=== PATIENT | male | born 1965 | race Caucasian/White ===

== ENCOUNTER → 2017-09-12 16:48 | Outpatient (CLI) | payer MEDICAID, SELFPAY ==
--- NOTE | 2017-09-12 16:58 | RAD_ITS ---
STUDY: X-RAY - LEFT KNEE REASON FOR EXAM: Male, 52 years old. Pain TECHNIQUE: 2 view(s) of the knee. COMPARISON: None. FINDINGS: There is no evidence of fracture or dislocation. There are no significant degenerative changes. There are no radiodense foreign bodies. RAD/Knee 1 or 2 Views IMPRESSION: No fracture or dislocation. Electronically Signed: Robert Mena, at 18:13 EDT Tel , Service support ,
== END ==
PROVIDERS: Visit Provider Nurse Practitioner Family
DX: M25.562 Pain in left knee (principal)
CPT/HCPCS: 73560

== ENCOUNTER 2018-01-11 21:59 | Emergency (ER) | payer SELFPAY ==
[2018-01-11 22:00] VITALS: BP 92/59; PULSE 69; RESP 23; TEMP 36.6; O2SAT 95; BMI 29.7
--- NOTE | 2018-01-11 22:02 | ED.RN ---
CALLED FOR EKG PER RN REQUEST, PULLED OLD EKG'S FOR
[2018-01-11 22:08] VITALS: BP 92/59; PULSE 72; RESP 14; O2SAT 96
--- NOTE | 2018-01-11 22:41 | EKG12_ITS ---
Test Reason : Blood Pressure : / mmHG Vent. Rate : 071 BPM Atrial Rate : 071 BPM P-R Int : 178 ms QRS Dur : 104 ms QT Int : 412 ms P-R-T Axes : 029 073 034 degrees QTc Int : 447 ms Normal sinus rhythm Normal ECG Confirmed by MARISELA OCHOA, AARON ([id number]), editor managing director ALBERT SANTO ([id number] on 01/14/2018 1:30:42 PM Referred By: BON Confirmed By:AARON ANTONIO MD
--- NOTE | 2018-01-11 22:41 | ED.VISSUMM ---
- ER Visit Summary Date of Service: 01/11/18 Chief Complaint: [] Seizure activity History of Present Illness: The patient is a 52 M with a seizure today. Intermittent lasting a minute. Witnessed by his daughter. She stated he was in and out of consciousness with full body shakes and his tongue came out of his mouth. Patient has never had one before. He stated he felt a head bonilla prior. He felt some stomach cramping prior and these are all resolved. Currently he feels normal. He donated plasma today. He was post ictal. He does not remember having this. The patient stated that he takes marijuana occasionally and had 1-2 puffs of the joint today. He takes natural painkiller called kratom. And he is on gabapentin and is weaning himself off Celexa over the last month and a half. He is only on 10 mg daily currently Physical Examination: [] Vital signs reviewed General: Well-nourished well-developed Head: Normocephalic atraumatic Eyes: Pupils equal round and reactive to light extraocular movements intact ENT: TMs clear no hemotympanum no trauma Neck: Nontender full range of motion Cardiovascular: Regular rate rhythm no murmurs normal S1-S2 Respiratory: No distress clear to auscultation bilaterally chest nontender Abdomen: Soft nontender nondistended normal bowel sounds no masses Back: Nontender no CVA tenderness Extremities: Nontender active range of motion ?4 extremities no trauma Skin: Normal color no trauma Neuro alert oriented cranial nerves II through XII intact normal strength sensation reflexes Test Results: [] Emergency Department Course and Treatment: [] Resting comfortably. No complaints currently. He has never had a seizure before. He refused CT head. He understands he could have a brain tumor. This is low likelihood possible. He would like to avoid the radiation exposure and cost at this time. EKG was obtained shows sinus rhythm at a rate of 71 without ischemia or arrhythmia. Lab work obtained. Patient given a dose of Ativan. Reevaluation continues to rest comfortably. CBC normal. Chemistry shows a chloride of 110 calcium 7.8. I do not feel these are significant abnormalities to cause a seizure. Will follow-up as an outpatient with neurology as well as his family doctor and will avoid driving until follow-up. I do not think he needs a first-time seizure medication. Try to avoid marijuana Treatment Plan: [] Disposition: [] Impression: [] Generalized seizure This note was generated with [employer] dictation software. It may contain incorrect words, spelling, and punctuation that were not noted in review of the chart prior to signing ED Disposition - Plan for ED Patient: Chief Complaint: Seizure Referrals: Fany Holguin,Arleen Diallo [Primary Care Provider] -
[2018-01-11] MEDS: LORazepam 2 MG/ML Syringe 1 MG IV (22:49)
[2018-01-11 22:53] LABS: Hematocrit 45.2 % (40-54); Hemoglobin 15.1 g/dl (13.0-16.5); Mean Corp Hgb Conc 33.4 g/gl (32-36); Mean Corpuscular Hgb 32.3 pg (27.0-32.0); Mean Corpuscular Volume 96.6 fL (80-94); Mean Platelet Vol. 9.3 fl (6.2-12.0); Platelet Count 230 K/mm3 (150-450); RBC Distribution Width CV 13.1 % (11.6-14.6); RBC Distribution Width SD 45.7 fl (35.1-43.9); Red Blood Count 4.68 M/mm3 (4.6-6.2); White Blood Count 8.9 K/mm3 (4.4-11.0)
[2018-01-11 22:55] LABS: Scan Indicated on CBC? Y/N NO
[2018-01-11 22:58] LABS: Anion Gap 6 (5-15); BUN 11 mg/dL (7-18); BUN/Creat Ratio 13.4 RATIO (10-20); Calcium,Total 7.8 mg/dL (8.5-10.1); Chloride 110 mmol/L (98-107); Creatinine, Serum 0.82 mg/dL (0.70-1.30); EST Glomerular Filtration Rate 105 mL/min (>60); Est Glom Filt Rate - Afr Amer 126 mL/min (>60); Estimated Creatinine Clearance 115.66 ml/min; Glucose 113 mg/dL (74-106); Sodium Level 143 mmol/L (136-145)
--- NOTE | 2018-01-11 23:10 | ED.DEP ---
ED Disposition - Plan for ED Patient: Disposition: Home or Assisted Living Chief Complaint: Seizure Instructions: ED Seizure New Onset Unk Cause Referrals: [facility] Ezio,Arleen Diallo [Primary Care Provider] - Karel Hebert MD [STAFF PHYSICIAN] -
[2018-01-11 23:18] VITALS: BP 95/70; PULSE 67; RESP 18; O2SAT 94
== END 2018-01-12 00:07 | disposition home or self-care (01) ==
PROVIDERS: Emergency Provider Emergency Medicine
DX: G40.409 Other generalized epilepsy and epileptic syndromes, not intractable, without status epilepticus (principal); G47.33 Obstructive sleep apnea (adult) (pediatric); F41.9 Anxiety disorder, unspecified; J45.909 Unspecified asthma, uncomplicated; Z79.899 Other long term (current) drug therapy; Z72.0 Tobacco use
CPT/HCPCS: 80048; 85027; 93005; 96374; 99284

== ENCOUNTER 2018-03-19 15:15 | Emergency (ER) | payer SELFPAY ==
[2018-03-19 15:16] VITALS: BP 132/82; PULSE 77; RESP 16; TEMP 36.6; O2SAT 97; BMI 28.5
--- NOTE | 2018-03-19 16:56 | ED.DCSUM_ITS ---
- ER Visit Summary Date of Service: 03/19/18 Chief Complaint: [Cough] History of Present Illness: The patient is a 53 M [presents the emergency department with a cough for 2 weeks. Patient states that cough is mostly nonproductive even though he has been using Mucinex. Patient had some chills. Patient states that he was exposed to some people who been diagnosed with walking pneumonia. Patient states that he feels like he just has no energy. Patient has a history of asthma and believes that he is been wheezing. Patient is a smoker. Patient denies recent travel or surgery. He denies any chest pain other than some soreness when he coughs. He denies any hemoptysis.] Physical Examination: [HEENT-PERRLA, EOMI. Cranial nerves II through XII grossly intact. TMs clear. Mucous membranes moist. No adenopathy. Cardiovascular-regular rate and rhythm without murmur or ectopy Lungs-coarse breath sounds with rhonchi and expiratory wheezes noted bilaterally. No accessory muscle use or retractions. No significant tachypnea. No conversational dyspnea. Abdomen-normoactive bowel sounds, soft, nontender, no rebound or rigidity, no peritoneal signs. Extremities-intact ?4, normal range of motion, normal pulses, atraumatic] Test Results: [Chest x-ray obtained showed no acute cardiopulmonary process only some degenerative changes in the spine.] Emergency Department Course and Treatment: [Patient was given a DuoNeb aerosol as well as prednisone 40 mg p.o. Patient felt improved after treatment.] Treatment Plan: [Patient will be given an albuterol MDI as well as a prescription for doxycycline and prednisone.] Disposition: [Discharged home in stable condition] Impression: [Asthmatic bronchitis] This note was generated with [employer] dictation software. It may contain incorrect words, spelling, and punctuation that were not noted in review of the chart prior to signing ED Disposition - Plan for ED Patient: Chief Complaint: Cough Referrals: Arleen Lee [Primary Care Provider] -
--- NOTE | 2018-03-19 17:02 | RAD_ITS ---
STUDY: X-RAY CHEST REASON FOR EXAM: Male, 53 years old. Cough shortness of breath TECHNIQUE: PA and lateral views of the chest. COMPARISON: October 26, 2014 chest x-ray FINDINGS: The lungs are clear and expanded. There is no demonstrated pleural abnormality. Normal size heart. Normal mediastinum and alicia. Normal visualized pulmonary arteries. Normal visualized aortic arch and descending thoracic aorta. There are diffuse degenerative changes of the visualized thoracic spine. Normal visualized ribs, clavicles, and shoulders. There is no demonstrated abnormality of the visualized soft tissue structures of the upper abdomen. RAD/Chest PA and Lateral IMPRESSION: Degenerative changes, as described above. No demonstrated acute cardiopulmonary process. Electronically Signed: Tatyana Copeland MD at 17:17 EDT Tel , Service support ,
[2018-03-19] MEDS: predniSONE 20 MG Tablet 40 MG PO (17:17)
[2018-03-19 17:18] VITALS: BP 135/79; PULSE 69; RESP 18; O2SAT 94
[2018-03-19] MEDS: Ipratropium/Albuterol Sulfate 3 ML AMPUL.NEB INHALATION (17:48)
[2018-03-19 17:50] VITALS: PULSE 70; RESP 18
--- NOTE | 2018-03-19 18:06 | ED.DEP ---
ED Disposition - Plan for ED Patient: Chief Complaint: Cough Instructions: ED Bronchitis Asthmatic Prescriptions: Doxycycline Monohydrate 100 mg PO BID #20 cap Prednisone [Deltasone] 20 mg PO BID #10 tab Referrals: Arleen Lee [Primary Care Provider] - 3-5 Days
[2018-03-19] MEDS: Doxycycline 100 MG CAPSULE PO (18:17)
[2018-03-19 18:20] VITALS: BP 139/66; PULSE 74; RESP 16; O2SAT 94
== END 2018-03-19 18:21 | disposition home or self-care (01) ==
LOC: ED 16:52
PROVIDERS: Emergency Provider Emergency Medicine
DX: J45.909 Unspecified asthma, uncomplicated (principal); F17.200 Nicotine dependence, unspecified, uncomplicated; Z79.899 Other long term (current) drug therapy
CPT/HCPCS: 71046; 94640; 99283

== ENCOUNTER 2018-07-15 14:43 | Emergency (ER) | payer SELFPAY ==
[2018-07-15 14:45] VITALS: BP 149/95; PULSE 85; RESP 17; TEMP 36.8; O2SAT 97; BMI 29.5
--- NOTE | 2018-07-15 16:48 | ED.RN ---
called pt to place in room. unable to locate.
== END 2018-07-15 16:48 | disposition left against medical advice (07) ==
LOC: ED 20:15
PROVIDERS: Emergency Provider Emergency Medicine
DX: S91.311A Laceration without foreign body, right foot, initial encounter (principal)

== ENCOUNTER 2018-08-07 10:30 | Outpatient (RCR) | payer OTHER, SELFPAY ==
[2018-07-31 14:39] VITALS: BP 136/86; PULSE 82; RESP 18; TEMP 36.7; BMI 29.1
--- NOTE | 2018-07-31 15:46 | HP.PCM_ITS ---
(1) Ulcer of right foot with fat layer exposed Status: Chronic Current Visit: Yes Code(s): L97.512 - Non-pressure chronic ulcer of other part of right foot with fat layer exposed (2) Smoking Status: Chronic Current Visit: Yes Code(s): F17.200 - Nicotine dependence, unspecified, uncomplicated (3) Malnutrition Status: Suspected Current Visit: Yes Code(s): E46 - Unspecified protein- calorie malnutrition History of Present Illness Date of Service: 07/31/18 Chief Complaint: Right foot ulcer History of Wound: This 53-year-old male stepped on his dog's antler chew product 3 weeks ago and sustained a wound. He initially had green and yellow drainage and presented to his primary care physician who started him on Augmentin. He has continued drainage. His redness, poor drainage, and pain have reduced since he completed his antibiotic course. He has been wearing a surgical shoe and tries to put weight on his heel. He does wash his site with soap and water. He denies fever, chill, nausea, vomiting. He denies claudication or rest paresthesias. He is a smoker and continues to smoke 1 pack/day. He has been covering this site with a gauze. Past Medical History Past Medical History: Chronic Problems Ulcer of right foot with fat layer exposed (Chronic) Smoking (Chronic) History of viral meningitis (Chronic) History of appendicitis (Chronic) Asthma (Chronic) Surgical History: appendectomy Allergies/Adverse Reactions: Allergies No Known Allergies Allergy (Verified 07/31/18 15:04) Home Medications: Ambulatory Orders Medication Instructions Recorded Gabapentin [Neurontin] 300 mg PO TID 01/11/18 Ibuprofen [Motrin] 800 mg PO BID 01/11/18 Citalopram [Celexa] 40 mg PO DAILY 07/31/18 Smoking Status: Heavy Smoker (>10/day) Tobacco Use: Cigarettes Review of Systems Constitutional: Denies: Chills, Fever, Malaise, Weakness Cardiovascular: Denies: Chest Pain, Claudication Respiratory: Denies: Shortness of Breath Gastrointestinal: Denies: Vomiting Musculoskeletal: Reports: Foot Pain. Denies: Leg Pain, Muscle pain Skin: Reports: Skin Changes, Wounds. Denies: Pruritis Neurological: Denies: Numbness, Tingling - Physical Exam Vital Signs Temp Pulse Resp BP 98.0 F 82 18 136/86 H 07/31/18 14:39 07/31/18 14:39 07/31/18 14:39 07/31/18 14:39 General: Alert, Oriented x3, Cooperative HEENT: Atraumatic Extremities: No cyanosis, Capillary Refill Less than 3 Seconds, No Calf Tenderness, Diminished Peripheral Pulses, Edema Skin: Ulcer/ Wound - No purulence, erythema, streaking, odor, or infection. There is a U-shaped ulcer to the plantar lateral right foot with granulation tissue exposed. There is no deep probing to bone or necrosis. There is no streaking noted. There is hair noted to the foot Wound Measurements and Assessment WC - Nurse 1 - General Ulcer Measurement Start: 07/31/18 14:39 Freq: Status: Active Protocol: Activity Type Activity Date Activity User E-Sign Co-Sign Detail Recorded Client Recorded Date Recorded By Document 07/31/18 14:39 DV [id number] 07/31/18 15:06 DV 07/31/18 14:39 Wound Center Nurse 1 [Ulcer Assessment] #1 Right Lateral Plantar -Combined with other wound No -Current Size (cm) - Length 0.2 -Current Size (cm) - Width 1.5 -Current Size (cm) - Depth 0.1 -Total Square Cm 0.30 -Photo Taken No -Epithelialization None Present -Tunneling No -Undermining/Tunneling No -Circular Undermining No -Classification - Thickness Full Thickness without Exposed Support Structure -Exudate Amt Small -Exudate Type Yellow/Green -Wound Margin Indistinct, Non -Visible -Granulation Amt None Present (0 %) -Granulation Quality N/A -Slough/Fibrin Yes -Necrosis Amt Large (67-100%) -Necrotic Tissue Type Adherent Slough -Structure Exposed None/Limited to Skin Breakdown -Texture (Juany-wound Skin Appearance) Assessed Scarring -Moisture (Juany-wound Skin Appearance Assessed ) Weeping -Color (Juany-wound Skin Appearance) No Abnormality Assessed -Temperature (Juany-wound Skin No Abnormality Appearance) (Pt Warm) -Tenderness on Palpation (Juany-wound Yes Skin Appearance) -Ulcer Cleansing Rinsed/ Irrigated with Saline -Foul Odor after Cleansing No -Anesthetic Used 5% Lidocaine Gel [Edema Assessment] -Lower Limb Edema Present No WC - Nurse 2 - General Ulcer CM Notes Start: 07/31/18 14:39 Freq: Status: Active Protocol: Activity Type Activity Date Activity User E-Sign Co-Sign Detail Recorded Client Recorded Date Recorded By Document 07/31/18 15:34 [id number] 07/31/18 15:36 07/31/18 15:34 Wound Center Nurse 2 [Procedure/Treatment] #1 Right Lateral Plantar -Time 15:34 -Correct Patient Yes -Correct Side, Site, Position Yes -Correct Procedure Yes -Procedure Performed Yes -Type of Procedure Debridement -Clinical Debridement Subcutaneous -Post Debridement Size (cm) - Length 1.7 -Post Debridement Size (cm) - Width 3.0 -Post Debridement Size (cm) - Depth 0.1 -Total Square Cm 5.10 -Wound/Ulcer Outcome Not Healed -Ulcer Cleansing Rinsed/ Irrigated with Saline -Foul Odor after Cleansing No -Bioengineered Tissue No -Bleeding Controlled with Pressure -Other 10% of debrided =0.51cm2 -Offloading Yes -Type of Offloading Surgical Shoe -Treatment Response Procedure Tolerated Well [See Physician Procedure note for Specifics] Pain Scale: 0-10 Numeric [Pain] -Is Patient Pain Free? Yes Musculoskeletal: No Tenderness to Palpation of Joints or Extremities, Muscle Wasting, - - Active range of motion digits noted. Compartments remain soft to palpate right foot. 5 out of 5 ankle muscle strength in all directions. Neurological: Sensory exam intact to light touch and pain Psych/Mental Status: Normal Affect, Appropriate Debridement Note Post-Debridement Measurements/Treatment WC - Nurse 2 - General Ulcer CM Notes Start: 07/31/18 14:39 Freq: Status: Active Protocol: Activity Type Activity Date Activity User E-Sign Co-Sign Detail Recorded Client Recorded Date Recorded By Document 07/31/18 15:34 [id number] 07/31/18 15:36 07/31/18 15:34 Wound Center Nurse 2 #1 Right Lateral Plantar -Time 15:34 -Correct Patient Yes -Correct Side, Site, Position Yes -Correct Procedure Yes -Procedure Performed Yes -Type of Procedure Debridement -Clinical Debridement Subcutaneous -Post Debridement Size (cm) - Length 1.7 -Post Debridement Size (cm) - Width 3.0 -Post Debridement Size (cm) - Depth 0.1 -Total Square Cm 5.10 -Wound/Ulcer Outcome Not Healed -Ulcer Cleansing Rinsed/ Irrigated with Saline -Foul Odor after Cleansing No -Bioengineered Tissue No -Bleeding Controlled with Pressure -Other 10% of debrided =0.51cm2 -Offloading Yes -Type of Offloading Surgical Shoe -Treatment Response Procedure Tolerated Well Pain Scale: 0-10 Numeric Is Patient Pain Free? Yes Wound debrided: plantar lateral foot Laterality: Right Type of Debridement: Excisional debridement Anesthesia Used: 5% Lidocaine Gel Depth: in the subcutaneous layer Percentage of wound debrided: 10 Instrument Used: #15 blade Tissue Removed: fibrous, devitalized subcutaneous, biofilm, slough Severity: Fat Layer Exposed Amount of bleeding with debridement: Mild Bleeding Controlled with: Pressure Patient tolerated procedure well Assessment/Plan Active Problems Ulcer of right foot with fat layer exposed (Chronic) Smoking (Chronic) Assessment: Plantar right foot ulcer fat layer exposed. History of trauma. Smoker. Malnutrition suspected Plan: I reviewed and discussed his case today. Subcutaneous excisional debridement was performed as noted in the clinical panel to the right plantar foot. To change dressing daily with hydrogel with collagen. To keep pressure off this site by walking on his heel with surgical shoe that he already has. He was reassured no local signs of infection are noted and I do not recommend additional cultures or antibiotics at this time. I ordered CBC and CMP to evaluate him from a medical standpoint; this will be reviewed when he returns. If his ulcer continues to demonstrate delayed healing after 1 month duration arterial blood flow studies and x-ray will be ordered. I recommend nutritional supplementation, Joaquin to optimize timely healing. A prescription was provided today. To return to the clinic in 1 week or call sooner if any questions.
[2018-07-31 17:42] LABS: Absolute Lymphocyte Count 2.27 X10^3/ul (0.83-4.51); Absolute Neutrophil Count 8.1 X10^3/uL (2.0-7.7); Basophil# 0.05 X10^3/uL; Basophil% 0.4 % (0-1); Eosinophil# 0.32 X10^3/uL; Eosinophils% 2.8 % (0-5); Hematocrit 46.6 % (40-54); Hemoglobin 15.4 g/dl (13.0-16.5); Lymphocyte # 2.27 X10^3/ul (4.0); Lymphocyte % 19.7 % (19-41); Mean Corpuscular Hgb 32.8 pg (27.0-32.0); Mean Corpuscular Volume 99.1 fL (80-94); Mean Platelet Vol. 9.7 fl (6.2-12.0); Monocyte# 0.73 X10^3/uL; Monocyte% 6.3 % (0-10); Neutrophil # 8.12 X10^3/uL (2.7-7.7); Neutrophil % 70.6 % (47-70); Platelet Count 264 K/mm3 (150-450); RBC Distribution Width CV 13.1 % (11.6-14.6); RBC Distribution Width SD 47.6 fl (35.1-43.9); White Blood Count 11.5 K/mm3 (4.4-11.0)
[2018-07-31 17:48] LABS: POSITIVE COUNT NO; POSITIVE DIFFERENTIAL NO; POSITIVE MORPHOLOGY NO
[2018-07-31 18:01] LABS: ALB/GLOB Ratio 1.3 RATIO (0.9-2.4); AST(SGOT) 12 U/L (15-37); Alanine Aminotransfer ALT/SGPT 18 U/L (16-61); Albumin, Serum 3.8 g/dL (3.2-5.0); Alkaline Phosphatase 64 U/L (45-117); Anion Gap 9 (5-15); BUN 7 mg/dL (7-18); BUN/Creat Ratio 10.1 RATIO (10-20); Calcium,Total 8.4 mg/dL (8.5-10.1); Chloride 107 mmol/L (98-107); EST Glomerular Filtration Rate 126 mL/min (>60); Est Glom Filt Rate - Afr Amer 153 mL/min (>60); Estimated Creatinine Clearance 133.95 ml/min; Globulin 2.9 g/dL (2.2-4.2); Glucose 85 mg/dL (74-106); Potassium 4.1 mmol/L (3.5-5.1); Protein, Total 6.7 g/dL (6.4-8.2); Sodium Level 143 mmol/L (136-145)
[2018-08-07 14:36] VITALS: BP 153/83; PULSE 86; RESP 18; TEMP 37.2; BMI 29.1
--- NOTE | 2018-08-07 15:14 | PN.PCM_ITS ---
(1) Ulcer of right foot with fat layer exposed Status: Resolved Current Visit: Yes Code(s): L97.512 - Non-pressure chronic ulcer of other part of right foot with fat layer exposed (2) Smoking Status: Chronic Current Visit: Yes Code(s): F17.200 - Nicotine dependence, unspecified, uncomplicated (3) Malnutrition Status: Suspected Current Visit: Yes Code(s): E46 - Unspecified protein- calorie malnutrition Type of Wound Date of Service: 08/07/18 Chief Complaint: Right foot ulcer History of Wound: this 53-year-old male stepped on his dog's antler chew product four weeks ago and sustained a wound. He has been changing the dressing as advised and has been keeping pressure off it with his offloading walking device. His redness, poor drainage, and pain have reduced since he completed his antibiotic course. He denies fever, chill, nausea, vomiting. He denies drainage and thinks the site may be healed. He is eager to return to work. Progress of Wound: Healed - Physical Exam Vital Signs Temp Pulse Resp BP 98.9 F 86 18 153/83 H 08/07/18 14:36 08/07/18 14:36 08/07/18 14:36 08/07/18 14:36 General: Alert, Oriented x3, Cooperative HEENT: Atraumatic Extremities: No cyanosis, Capillary Refill Less than 3 Seconds, No Calf Tenderness - Negative Lalito and Olivo sign bilateral, Diminished Peripheral Pulses, Edema - Mild, Tenderness - No pain to palpate healed ulcer site and there is no bogginess or fluctuance on palpation Skin: Ulcer/ Wound - No purulence, erythema, streaking, odor, maceration, necrosis or eschar or infection noted. The peripheral skin turgor is normal. Wound Measurements and Assessment WC - Nurse 1 - General Ulcer Measurement Start: 07/31/18 14:39 Freq: Status: Active Protocol: Activity Type Activity Date Activity User E-Sign Co-Sign Detail Recorded Client Recorded Date Recorded By Document 08/07/18 14:36 [email or web address] [id number] 08/07/18 14:42 BM 08/07/18 14:36 Wound Center Nurse 1 [Ulcer Assessment] #1 Right Lateral Plantar -Combined with other wound No -Current Size (cm) - Length 0.1 -Current Size (cm) - Width 0.1 -Current Size (cm) - Depth 0.1 -Total Square Cm 0.01 -Photo Taken No -Epithelialization Large 67-100% -Tunneling No -Undermining/Tunneling No -Circular Undermining No -Structure Exposed N/A -Texture (Juany-wound Skin Appearance) Assessed Scarring -Moisture (Juany-wound Skin Appearance Assessed ) -Color (Juany-wound Skin Appearance) Assessed -Temperature (Juany-wound Skin No Abnormality Appearance) (Pt Warm) -Tenderness on Palpation (Juany-wound Yes Skin Appearance) -Ulcer Cleansing Rinsed/ Irrigated with Saline -Foul Odor after Cleansing No -Anesthetic Used 5% Lidocaine Gel - Nurse 2 - General Ulcer CM Notes Start: 07/31/18 14:39 Freq: Status: Active Protocol: Activity Type Activity Date Activity User E-Sign Co-Sign Detail Recorded Client Recorded Date Recorded By Document 08/07/18 14:57 [id number] 08/07/18 14:58 08/07/18 14:57 Wound Center Nurse 2 [Procedure/Treatment] -Correct Patient No -Correct Side, Site, Position No -Correct Procedure No -Procedure Performed No -Post Debridement Size (cm) - Length 0 -Post Debridement Size (cm) - Width 0 -Post Debridement Size (cm) - Depth 0 -Total Square Cm 0 -Wound/Ulcer Outcome Healed- Epithelialized [See Physician Procedure note for Specifics] Pain Scale: 0-10 Numeric [Pain] -Is Patient Pain Free? Yes Musculoskeletal: No Tenderness to Palpation of Joints or Extremities, Muscle Wasting Neurological: Sensory exam intact to light touch and pain Psych/Mental Status: Normal Affect, Appropriate Debridement Note Post-Debridement Measurements/Treatment WC - Nurse 2 - General Ulcer CM Notes Start: 07/31/18 14:39 Freq: Status: Active Protocol: Activity Type Activity Date Activity User E-Sign Co-Sign Detail Recorded Client Recorded Date Recorded By Document 07/31/18 15:34 [id number] 07/31/18 15:36 Document 08/07/18 14:57 [id number] 08/07/18 14:58 07/31/18 08/07/18 15:34 14:57 Wound Center Nurse 2 #1 Right Lateral Plantar -Time 15:34 -Correct Patient Yes No -Correct Side, Site, Position Yes No -Correct Procedure Yes No -Procedure Performed Yes No -Type of Procedure Debridement -Clinical Debridement Subcutaneous -Post Debridement Size (cm) - Length 1.7 0 -Post Debridement Size (cm) - Width 3.0 0 -Post Debridement Size (cm) - Depth 0.1 0 -Total Square Cm 5.10 0 -Wound/Ulcer Outcome Not Healed Healed- Epithelialized -Ulcer Cleansing Rinsed/ Irrigated with Saline -Foul Odor after Cleansing No -Bioengineered Tissue No -Bleeding Controlled with Pressure -Other 10% of debrided =0.51cm2 -Offloading Yes -Type of Offloading Surgical Shoe -Treatment Response Procedure Tolerated Well Pain Scale: 0-10 Numeric Is Patient Pain Free? Yes Yes No debridement was completed today - the ulcer site has healed Assessment/Plan Active Problems Smoking (Chronic) Assessment: Plantar right foot ulcer fat layer exposed. History of trauma. Smoker. Malnutrition suspected Plan: I reviewed and discussed his case today. Also debridement was not performed because the ulcer is healed. He was advised to discontinue dressing changes and nutritional supplementation. The anticipated skin remodeling timeframe was discussed and she will monitor the site for reopening over the next month. To wear protective and supportive shoes. He is discharged from the wound healing center at this time. To follow-up with the foot and ankle center as needed. I answered all his questions. To maintain good skin integrity by washing with soap and water and moisturizing daily with lotion.
== END 2018-08-08 23:59 ==
LOC: WC 10:30
PROVIDERS: Visit Provider Podiatrist
DX: L97.512 Non-pressure chronic ulcer of other part of right foot with fat layer exposed (principal); J45.909 Unspecified asthma, uncomplicated; F17.210 Nicotine dependence, cigarettes, uncomplicated
CPT/HCPCS: 11042; 80053; 85025; 99212; 99213; G0463

== ENCOUNTER 2018-08-17 15:32 | Emergency (ER) | payer OTHER, SELFPAY ==
[2018-08-17 15:33] VITALS: BP 160/84; PULSE 87; RESP 16; TEMP 37.1; O2SAT 96; BMI 29.1
[2018-08-17] MEDS: Tetracaine 0.5% Ophthalmic Bottle 1 DRP RIGHT EYE (15:47)
[2018-08-17] MEDS: Erythromycin Base 1 OPTH.TUBE 1 APPLIC RIGHT EYE (16:01)
--- NOTE | 2018-08-17 16:09 | ED.VISSUMM ---
- ER Visit Summary Date of Service: 08/17/18 Chief Complaint: Right eye pain History of Present Illness: The patient is a 53 M worsening right eye pain earlier this evening after his dog jumped up with no sitting right eye. Does not wear glasses. Photophobia and blurry vision. No recent eye exam. No nausea or vomiting. Ibuprofen taken prior to arrival. Physical Examination: General: Alert and oriented ?3, no acute distress HEENT: Normocephalic, atraumatic. Moist mucosa membranes. Tetracaine instilled right eye, after floor seen placement there is abrasion middle of the cornea. No ulcers. No foreign body under eyelid. Neck: supple, nontender. Cardiovascular: Regular rate and rhythm, no murmurs Respiratory: Normal breath sounds, symmetric, no distress Abdomen: Soft, nontender, nondistended Extremities: Nontender, no edema, pulses intact ?4 Neuro: no focal neurological deficits. Test Results: [] Emergency Department Course and Treatment: Exam with corneal abrasion. Started on erythromycin ointment twice a day. Continue Motrin. Given follow-up with ophthalmology. Treatment Plan: [] Disposition: Discharge Impression: Right corneal abrasion This note was generated with [employer] dictation software. It may contain incorrect words, spelling, and punctuation that were not noted in review of the chart prior to signing ED Disposition - Plan for ED Patient: Disposition: Home or Assisted Living Diagnosis: Right corneal abrasion Instructions: ED Eye Injury Corneal Abrasion Referrals: [facility] Ezio,Arleen Diallo [NON-STAFF] - Quique Bower MD [STAFF PHYSICIAN] - 2 Days Additional Instructions: Use ointment twice a day for the next 7 days follow-up with ophthalmology.
--- NOTE | 2018-08-17 16:13 | ED.DCSUM_ITS ---
- ER Visit Summary Date of Service: 08/17/18 Chief Complaint: Right eye pain History of Present Illness: The patient is a 53 M worsening right eye pain earlier this evening after his dog jumped up with no sitting right eye. Does not wear glasses. Photophobia and blurry vision. No recent eye exam. No isael sea or vomiting. Ibuprofen taken prior to arrival. Physical Examination: General: Alert and oriented ?3, no acute distress HEENT: Normocephalic, atraumatic. Moist mucosa membranes. Tetracaine instilled right eye, after floor seen placement there is abrasion middle of the cornea. No ulcers. No foreign body under eyelid. Neck: supple, nontender. Cardiovascular: Regular rate and rhythm, no murmurs Respiratory: Normal breath sounds, symmetric, no distress Abdomen: Soft, nontender, nondistended Extremities: Nontender, no edema, pulses intact ?4 Neuro: no focal neurological deficits. Test Results: [] Emergency Department Course and Treatment: Exam with corneal abrasion. Started on erythromycin ointment twice a day. Continue Motrin. Given follow-up with ophthalmology. Treatment Plan: [] Disposition: Discharge Impression: Right corneal abrasion This note was generated with [employer] dictation software. It may contain incorrect words, spelling, and punctuation that were not noted in review of the chart prior to signing ED Disposition - Plan for ED Patient: Disposition: Home or Assisted Living Diagnosis: Right corneal abrasion Instructions: ED Eye Injury Corneal Abrasion Referrals: [facility] Ezio,Arleen Diallo [NON-STAFF] - Quique Bower MD [STAFF PHYSICIAN] - 2 Days Additional Instructions: Use ointment twice a day for the next 7 days follow-up with ophthalmology.
--- NOTE | 2018-08-17 16:21 | ED.RN ---
PT LEFT WITHOUT RECEIVING DISCHARGE INSTRUCTIONS OR BEING REGISTERED.
== END 2018-08-17 16:33 | disposition home or self-care (01) ==
PROVIDERS: Emergency Provider Emergency Medicine; Family Provider Nurse Practitioner Family; PCP Nurse Practitioner Family
DX: S05.01XA Injury of conjunctiva and corneal abrasion without foreign body, right eye, initial encounter (principal); J45.909 Unspecified asthma, uncomplicated; Z79.51 Long term (current) use of inhaled steroids; Z79.899 Other long term (current) drug therapy; X58.XXXA Exposure to other specified factors, initial encounter; Y93.89 Activity, other specified; Y92.009 Unspecified place in unspecified non-institutional (private) residence as the place of occurrence of the external cause; Y99.8 Other external cause status
CPT/HCPCS: 99282

== ENCOUNTER 2019-07-25 10:37 | Emergency (ER) | payer OTHER, SELFPAY ==
[2019-07-25 10:39] VITALS: BP 130/73; PULSE 85; RESP 17; TEMP 36.6; O2SAT 97; BMI 28.7
--- NOTE | 2019-07-25 10:55 | RAD_ITS ---
STUDY: X-RAY CHEST REASON FOR EXAM: Male, 54 years old. PT STATES HE THINKS HE HAS MENINGITIS AGAIN THIS WOULD BE THE 3RD TIME. C/O VALDES, BODY ACHES, NAUSEA, WEAKNESS TECHNIQUE: PA and lateral views of the chest. COMPARISON: Comparison is made with prior study dated March 19, 2018. FINDINGS: Stable minimally increased linear markings at the left lung base suggestive of a mild scarring. There is no demonstrated pleural abnormality. Normal size heart. Normal mediastinum and alicia. Normal visualized pulmonary arteries. Normal visualized aortic arch and descending thoracic aorta. Normal visualized thoracic spine. Normal visualized ribs, clavicles, and shoulders. There is no demonstrated abnormality of the visualized soft tissue structures of the upper abdomen. RAD/Chest PA and Lateral IMPRESSION: No acute abnormality is seen. Electronically Signed: Kris Gifford, at 12:05 EST , Service support ,
--- NOTE | 2019-07-25 10:56 | ED.VISSUMM ---
- ER Visit Summary Date of Service: 07/25/19 Chief Complaint: Headache, fever History of Present Illness: The patient is a 54 M who presents with headache and fever that has been constant over the past 3 to 4 days. Patient states his headache is actually getting better. Patient describes it as throbbing. Patient states his headache is diffuse. Patient states he has been taking 800 mg of ibuprofen approximately every 3 hours for the pain. Patient states this has been helping. Patient did not take his temperature at home. Patient is concerned that he has viral meningitis since he has had that 3 other times in the past. Patient states he knows that it is meningitis because he has a headache with his fever. Patient also admits to a cough and some shortness of breath. Physical Examination: Vital signs are stable. Patient is afebrile. Patient is in no acute distress. Oral mucosa is pink and moist. Neck is supple. There is full range of motion. There is some mild pain with extension but he is able to flex his neck completely without any pain. Heart was regular rate and rhythm. Lungs showed scattered wheezes. There is good respiratory effort noted. Abdomen is soft and nontender. Bowel sounds are normal. Cranial nerves II through XII are intact. There are no focal motor or sensory deficits noted. Test Results: CBC and comprehensive metabolic profile were within normal limits. Influenza swab was obtained and was negative. PA and lateral chest x-ray was obtained. There is no acute cardiopulmonary process. Emergency Department Course and Treatment: Patient was given IV fluids. Patient was sleeping on reevaluation. Patient was advised that this is most likely a viral illness. I do not feel it is meningitis. Patient was instructed to drink plenty of fluids. Patient was instructed to take Tylenol or ibuprofen as needed for pain or fever. Patient requested that I fill out paperwork for short-term disability or FMLA. Patient was informed that the emergency department does not fill out these forms. Patient was instructed that these forms need to be filled out by his primary care physician. Patient was instructed to follow-up with his primary care physician in 5 to 7 days. Patient understood and was agreeable with the plan. All questions were answered. Disposition: Discharge home Impression: Viral illness This note was generated with [employer] software. It may contain incorrect words, spelling, and punctuation that were not noted in review of the chart prior to signing ED Disposition - Plan for ED Patient: Disposition: Home or Assisted Living Diagnosis: Viral illness Instructions: VIRAL SYNDROME (Adult) Referrals: Marii Best NP-C [NON-STAFF] - 3-5 Days
[2019-07-25] MEDS: Ipratropium/Albuterol Sulfate 3 ML AMPUL.NEB INHALATION (11:15)
[2019-07-25 11:16] LABS: Absolute Lymphocyte Count 0.89 X10^3/uL (0.83-4.51); Absolute Neutrophil Count 8.3 X10^3/uL (2.0-7.7); Basophil# 0.03 X10^3/uL; Basophil% 0.3 % (0-1); Eosinophil# 0.01 X10^3/uL; Eosinophils% 0.1 % (0-5); Hematocrit 46.9 % (40-54); Lymphocyte # 0.89 X10^3/ul (4.0); Lymphocyte % 8.5 % (19-41); Mean Corp Hgb Conc 34.1 g/dL (32-36); Mean Corpuscular Hgb 33.3 pg (27.0-32.0); Mean Corpuscular Volume 97.5 fL (80-94); Mean Platelet Vol. 9.8 fl (6.2-12.0); Monocyte% 11.5 % (0-10); NRBC Flagged by Analyzer 0 % (0-5); Neutrophil # 8.29 X10^3/uL (2.7-7.7); Neutrophil % 79.2 % (47-70); POSITIVE MORPHOLOGY YES; Platelet Count 218 K/mm3 (150-450); RBC Distribution Width CV 11.8 % (11.6-14.6); RBC Distribution Width SD 42.7 fl (35.1-43.9); Red Blood Count 4.81 M/mm3 (4.6-6.2); White Blood Count 10.5 K/mm3 (4.4-11.0)
[2019-07-25 11:17] VITALS: PULSE 93; RESP 16; O2SAT 98
[2019-07-25 11:24] LABS: Differential Indicated SCAN CRITERIA MET
[2019-07-25 11:27] LABS: ALB/GLOB Ratio 0.9 RATIO (0.9-2.4); AST(SGOT) 20 U/L (15-37); Alanine Aminotransfer ALT/SGPT 20 U/L (16-61); Albumin, Serum 3.4 g/dL (3.2-5.0); Alkaline Phosphatase 55 U/L (45-117); Anion Gap 5 (5-15); BUN 13 mg/dL (7-18); BUN/Creat Ratio 13.7 RATIO (10-20); Calcium,Total 9.1 mg/dL (8.5-10.1); Chloride 104 mmol/L (98-107); Creatinine, Serum 0.95 mg/dL (0.70-1.30); EST Glomerular Filtration Rate 88 mL/min (>60); Est Glom Filt Rate - Afr Amer 106 mL/min (>60); Estimated Creatinine Clearance 97.57 ml/min; Globulin 3.9 g/dL (2.2-4.2); Glucose 115 mg/dL (74-106); Potassium 3.3 mmol/L (3.5-5.1); Protein, Total 7.3 g/dL (6.4-8.2); Sodium Level 137 mmol/L (136-145)
[2019-07-25] MEDS: 0.9% Normal Saline 1,000 ML 1000 ML IV (11:39)
== END 2019-07-25 12:32 | disposition home or self-care (01) ==
PROVIDERS: Emergency Provider Emergency Medicine
DX: B34.9 Viral infection, unspecified (principal); R05 Cough; R06.00 Dyspnea, unspecified; J02.9 Acute pharyngitis, unspecified; J45.909 Unspecified asthma, uncomplicated; F41.9 Anxiety disorder, unspecified; F32.9 Major depressive disorder, single episode, unspecified; F17.210 Nicotine dependence, cigarettes, uncomplicated
CPT/HCPCS: 71046; 80053; 85025; 87804; 94640; 96360; 99283; J7030; A4216

== ENCOUNTER 2019-08-02 16:23 | Emergency (ER) | payer OTHER, SELFPAY ==
[2019-08-02] VITALS (7 sets, daily range): BP systolic 112–130; BP diastolic 70–89; PULSE 83–95; RESP 16–20; TEMP 36.6–36.8; O2SAT 94–97; BMI 26.6
--- NOTE | 2019-08-02 16:28 | EKG12_ITS ---
Test Reason : Blood Pressure : / mmHG Vent. Rate : 081 BPM Atrial Rate : 081 BPM P-R Int : 142 ms QRS Dur : 090 ms QT Int : 358 ms P-R-T Axes : 057 081 003 degrees QTc Int : 415 ms Normal sinus rhythm Normal ECG Confirmed by LEXI OCAMPO ([id number]), book or script editor CLEMENCIA JOHANSEN ([id number]) on 08/05/2019 2:05:53 PM Referred By: Confirmed By:LEXI OCAMPO
--- NOTE | 2019-08-02 17:21 | RAD_ITS ---
STUDY: X-RAY CHEST REASON FOR EXAM: Male, 54 years old. PT ARRIVES TO ED WITH SOB, COUGH, AND FATIGUE TECHNIQUE: PA and lateral views of the chest. COMPARISON: 07/25/2019 FINDINGS: Lungs are hyperexpanded. Reticulation along the periphery of the lung bases new since the prior study. There is no demonstrated pleural abnormality. Normal size heart. Normal mediastinum and alicia. Normal visualized pulmonary arteries. Normal visualized aortic arch and descending thoracic aorta. There is demineralization of the osseous structures. Normal visualized ribs, clavicles, and shoulders. There is no demonstrated abnormality of the visualized soft tissue structures of the upper abdomen. RAD/Chest PA and Lateral IMPRESSION: No airspace consolidation or pleural effusion. Interstitial infiltrates are new since 07/25/2019 suggesting atypical/viral infection. No airspace consolidation. Electronically Signed: Alfonso Khan MD (Brooks) at 18:03 EST , Service support ,
--- NOTE | 2019-08-02 17:22 | ED.DCSUM_ITS ---
History of Present Illness Chief Complaint: Shortness of Breath Detail of Chief Complaint: Cough, Congestion, fatigue Onset: Days - 12 days Current Severity: Mild Maximum Severity: Moderate Narrative: Patient presents with what sound like viral syndrome for the past 12 days. He states he initially had dry heaves and fever along with headache. Those symptoms are improving however he continues to have body aches, cough, shortness of breath. Patient states he is lost 24 pounds stating that he just has no appetite and has not been able to eat. Patient was seen here in the ER on the . Work-up was unremarkable and he was advised it was all viral in nature. Patient states he felt he should have been hospitalized for fluids and breathing treatments. His roommate reportedly got sick after the patient did and was diagnosed with pneumonia. 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 Past Medical History - Allergies and Home Meds Allergies/Adverse Reactions: Allergies No Known Allergies Allergy (Verified 08/02/19 16:27) Primary Care Physician: Arleen Lee [Primary Care Provider] - Prior records reviewed: Yes Surgical History: appendectomy Lives: Roommate Smoking Status: Current every day smoker Review of Systems General: Denies: Fever Eyes: Denies: Visual changes - bilaterally ENT: Denies: Bilateral ear pain Cardiovascular: Denies: Chest pain Respiratory: Reports: Dyspnea, Cough, Sputum - Clear sputum Gastrointestinal: Reports: Nausea, Vomiting - Early in the course of illness. Denies: Abdominal pain, Diarrhea Musculoskeletal: Reports: Myalgias. Denies: Extremity Pain Skin: Denies: Rash Neurological: Reports: Headache - Now resolved Allergy: Denies: Uticaria Physical Exam Vital Signs/Narrative: Vital Signs Temp Pulse Resp BP Pulse Ox 08/02/19 16:24 98.2 F 95 16 130/87 H 97 Inital Vital Signs reviewed: Yes General: Well nourished, Well developed Head: Normocephalic ENT: Moist mucous membranes Neck: Supple Cardiovascular: Regular rate, Regular rhythm Respiratory: No distress, CTA bilaterally, - - Slight decreased air movement Abdomen: Soft, Nontender, Normal bowel sounds Back: Nontender Skin: Normal color, No rash Neurological: Alert, Oriented x3 Psychological: Normal affect Diagnostic/Tx/Re-eval Impressions Chest X-Ray 08/02/19 17:21 IMPRESSION: No airspace consolidation or pleural effusion. Interstitial infiltrates are new since 07/25/2019 suggesting atypical/viral infection. No airspace consolidation. Electronically Signed: Alfonso Khan MD (Brooks) at 18:03 EST , Service support , 08/02/19 17:21 Chest PA and Lateral [RAD] Stat Laboratory Results 08/02/19 08/02/19 16:08 16:08 WBC 14.5 H RBC 4.47 L Hgb 14.8 Hct 43.2 MCV 96.6 H MCH 33.1 H MCHC 34.3 RDW Std Deviation 42.0 RDW Coeff of Acacia 11.8 Plt Count 633 H MPV 9.0 Neut % (Auto) Not Reportable Absolute Neuts (auto) 11.2 H Absolute Lymphs (auto) 2.33 Total Counted 100 Neutrophils % (Manual) 68 Band Neutrophils % 9 H Lymphocytes % (Manual) 16 L Monocytes % (Manual) 6 Basophils % (Manual) 1 Diff Path Review May foll Reactive Lymphocytes RARE Platelet Estimate MKD INC RBC Morphology NORM C+C Sodium 143 Potassium 3.6 Chloride 109 H Carbon Dioxide 28.0 Anion Gap 6 BUN 12 Creatinine 0.71 Estim Creat Clear Calc 130.55 Est GFR (MDRD) Af Amer 148 Est GFR (MDRD) Non-Af 123 BUN/Creatinine Ratio 16.9 Glucose 113 H Calcium 9.4 - EKG Initial EKG Interpretation: Sinus Rhythm - Sinus 81 with no acute ischemia. Normal QTC. - Medical Decision Making Patient was given aerosol treatments along with Toradol and IV fluids. On repeat evaluation he does feel improved. I cannot hear some expiratory wheezes at the left base. He does have his inhaler at home that he will continue to use. Chest x-ray today does show infiltrates consistent with atypical pneumonia or viral pneumonia. Because the patient has had symptoms for 2 weeks, and elevated white count, and these new changes on chest x-ray he will be covered with a course of Levaquin. ED Disposition - Plan for ED Patient: Disposition: Home or Assisted Living Diagnosis: Atypical pneumonia Instructions: PNEUMONIA (Adult) Prescriptions: Levofloxacin [Levaquin] 750 mg PO DAILY #4 tab Transmission Status: Pending to [facility] [place] Referrals: [facility] Diallo [Primary Care Provider] - 1 Week
[2019-08-02] MEDS: Ipratropium/Albuterol Sulfate 3 ML AMPUL.NEB INHALATION (17:30)
[2019-08-02] MEDS: Ketorolac 30 MG/ML Syringe IV (17:30)
[2019-08-02] MEDS: Albuterol 2.5 MG/3 ML VIAL.NEB. INHALATION ×3 (17:30→18:10)
[2019-08-02] MEDS: 0.9% Normal Saline 1,000 ML 1000 ML IV (17:31)
[2019-08-02 17:46] LABS: Hematocrit 43.2 % (40-54); Hemoglobin 14.8 g/dL (13.0-16.5); Mean Corp Hgb Conc 34.3 g/dL (32-36); Mean Corpuscular Hgb 33.1 pg (27.0-32.0); Mean Corpuscular Volume 96.6 fL (80-94); POSITIVE COUNT YES; POSITIVE MORPHOLOGY YES; Platelet Count 633 K/mm3 (150-450); RBC Distribution Width CV 11.8 % (11.6-14.6); Red Blood Count 4.47 M/mm3 (4.6-6.2); White Blood Count 14.5 K/mm3 (4.4-11.0)
[2019-08-02 17:49] LABS: Differential Indicated MANUAL DIFF
[2019-08-02 17:56] LABS: Anion Gap 6 (5-15); BUN 12 mg/dL (7-18); BUN/Creat Ratio 16.9 RATIO (10-20); Calcium,Total 9.4 mg/dL (8.5-10.1); Chloride 109 mmol/L (98-107); Creatinine, Serum 0.71 mg/dL (0.70-1.30); EST Glomerular Filtration Rate 123 mL/min (>60); Est Glom Filt Rate - Afr Amer 148 mL/min (>60); Estimated Creatinine Clearance 130.55 ml/min; Glucose 113 mg/dL (74-106); Potassium 3.6 mmol/L (3.5-5.1); Sodium Level 143 mmol/L (136-145)
[2019-08-02 18:07] LABS: Basophil 1 % (0-1); Lymphocyte 16 % (19-41); Monocyte 6 % (0-10); Neutrophil-Band 9 % (0-5); Neutrophil-Segmented 68 % (47-70); Total Cells Counted 100 (MANUAL DIFF)
[2019-08-02 18:08] LABS: Reactive Lymphocyte RARE; Red Cell Morphology NORM C+C NORMAL (NORM C&C)
[2019-08-02 18:09] LABS: Platelet Estimate MKD INC (ADEQ)
[2019-08-02 18:10] LABS: Absolute Neutrophil Count 11.2 X10^3/uL (2.0-7.7)
[2019-08-02 18:11] LABS: Absolute Lymphocyte Count 2.33 X10^3/uL (0.83-4.51)
[2019-08-02] MEDS: levoFLOXacin 750 MG Tablet PO (19:44)
[2019-08-04 14:01] LABS: Pathologist Review Reviewed
== END 2019-08-02 19:48 | disposition home or self-care (01) ==
PROVIDERS: Emergency Provider Emergency Medicine
DX: J18.9 Pneumonia, unspecified organism (principal); J45.909 Unspecified asthma, uncomplicated; Z72.0 Tobacco use
CPT/HCPCS: 71046; 80048; 85025; 93005; 94640; 96361; 96374; 99285; J7030

== ENCOUNTER → 2019-08-15 11:05 | Outpatient (CLI) | payer OTHER, SELFPAY ==
[2019-08-02 16:24] VITALS: BMI 26.6
--- NOTE | 2019-08-15 11:15 | RAD_ITS ---
STUDY: X-RAY CHEST REASON FOR EXAM: Male, 54 years old. PNEUMONIA X 3 1/2 WEEKS, WEAKNESS, LEFT AXILLARY CHEST PAIN TECHNIQUE: PA and lateral views of the chest. COMPARISON: Comparison is made with prior study dated August 02, 2019. FINDINGS: Hyperinflation. Stable mild increased markings at the left lung base suggestive of mild scarring. There is no demonstrated pleural abnormality. Normal size heart. Normal mediastinum and alicia. Normal visualized pulmonary arteries. There is atherosclerotic calcification of the aortic arch with tortuosity. Normal visualized thoracic spine. Normal visualized ribs, clavicles, and shoulders. There is no demonstrated abnormality of the visualized soft tissue structures of the upper abdomen. RAD/Chest PA and Lateral IMPRESSION: Stable examination. Hyperinflation. Electronically Signed: Kris Gifford, at 15:59 EST , Service support ,
== END ==
PROVIDERS: Referring Provider Nurse Practitioner Family; Visit Provider Nurse Practitioner Family
DX: J18.9 Pneumonia, unspecified organism (principal)
CPT/HCPCS: 71046

== ENCOUNTER → 2019-09-25 08:27 | Outpatient (CLI) | payer OTHER, SELFPAY ==
[2019-08-02 16:24] VITALS: BMI 26.6
--- NOTE | 2019-09-25 08:31 | CT_ITS ---
STUDY: CT CHEST WITH CONTRAST REASON FOR EXAM: Male, 54 years old. COUGH, HX PNEUMONIA, COPD RADIATION DOSAGE (If Supplied By Facility): CTDIvol = ( 16.32 ) mGy, DLP = ( 641.23 ) mGycm TECHNIQUE: Transaxial imaging was performed following intravenous administration of IV 100mL Isovue-300. Individualized dose optimization techniques were used for this CT. COMPARISON: None. FINDINGS: The lungs are normal. There is no demonstrated pleural abnormality. Normal heart and pericardium. Normal mediastinum. Normal hilar regions. Normal enhanced pulmonary arteries. Normal aorta arch and descending thoracic aorta. Normal osseous structures. There is a 1 cm cyst in the right lobe of liver segment #6. CT/Chest WITH Contrast IMPRESSION: No acute chest disease. Electronically Signed: Damion Estrella, at 11:42 EDT Tel , Service support ,
== END ==
DX: R05 Cough (principal)
CPT/HCPCS: 71260; Q9967

== ENCOUNTER → 2020-05-17 10:28 | Outpatient (CLI) | payer OTHER, SELFPAY ==
[2019-08-02 16:24] VITALS: BMI 26.6
[2020-05-17 11:30] LABS: Vitamin D,25 Hydroxy 15.4 ng/mL
[2020-05-17 11:32] LABS: ALB/GLOB Ratio 1.3 RATIO (0.9-2.4); AST(SGOT) 9 U/L (15-37); Alanine Aminotransfer ALT/SGPT 17 U/L (16-61); Albumin, Serum 3.8 g/dL (3.2-5.0); Alkaline Phosphatase 65 U/L (45-117); Anion Gap 5 (5-15); BUN 11 mg/dL (7-18); BUN/Creat Ratio 14.1 RATIO (10-20); Calcium,Total 8.5 mg/dL (8.5-10.1); Chloride 106 mmol/L (98-107); Cholesterol 224 mg/dL (200); Creatinine, Serum 0.78 mg/dL (0.70-1.30); EST Glomerular Filtration Rate 109 mL/min (>60); Est Glom Filt Rate - Afr Amer 132 mL/min (>60); Glucose 95 mg/dL (74-106); High Density Lipoprotein 46 mg/dL; PSA,Total - Annual Screen 0.41 ng/mL (0.00-4.00); Potassium 3.9 mmol/L (3.5-5.1); Protein, Total 6.8 g/dL (6.4-8.2); Sodium Level 140 mmol/L (136-145); Triglycerides 111 mg/dL; Very Low Density Lipoprotein 22 mg/dL (5-40)
== END ==
PROVIDERS: Referring Provider Family Medicine; Visit Provider Family Medicine
DX: E78.5 Hyperlipidemia, unspecified (principal); E55.9 Vitamin D deficiency, unspecified; R39.14 Feeling of incomplete bladder emptying; F41.9 Anxiety disorder, unspecified
CPT/HCPCS: 36415; 80053; 80061; 82306; 84153; G0103

== ENCOUNTER → 2020-08-23 12:15 | Outpatient (CLI) | payer OTHER, SELFPAY ==
[2019-08-02 16:24] VITALS: BMI 26.6
[2020-08-23 13:16] LABS: Cholesterol 241 mg/dL (200); High Density Lipoprotein 50 mg/dL; Triglycerides 147 mg/dL; Very Low Density Lipoprotein 29 mg/dL (5-40)
[2020-08-23 13:19] LABS: Vitamin D,25 Hydroxy 49.3 ng/mL
== END ==
DX: E78.5 Hyperlipidemia, unspecified (principal); E55.9 Vitamin D deficiency, unspecified
CPT/HCPCS: 36415; 80061; 82306

== ENCOUNTER → 2020-09-10 14:07 | Outpatient (CLI) | payer OTHER, SELFPAY ==
[2019-08-02 16:24] VITALS: BMI 26.6
--- NOTE | 2020-09-10 14:14 | CT_ITS ---
STUDY: CT BRAIN WITH AND WITHOUT CONTRAST REASON FOR EXAM: Male, 55 years old. NEOPLASM OF SKIN RADIATION DOSAGE (If Supplied By Facility): CTDIvol = ( 44.99 ) mGy, DLP = ( 1682.21 ) mGycm TECHNIQUE: Transaxial CT imaging of the brain was performed pre and post contrast administration. The examination was performed with intravenous administration of IV 100mL Isovue-300. Individualized dose optimization techniques were used for this CT. COMPARISON: Comparison is made with prior study dated 08/10/2011. FINDINGS: Normal soft tissue structures. Normal calvarium. Normal size ventricles and extra-axial spaces for the patient''s age. Normal white matter tracts of the cerebral hemispheres. Normal basal ganglia and thalami. Normal brainstem. Stable 4.1 cm x 1.5 cm CSF collection overlying the left cerebellar hemisphere most likely representing a small arachnoid cyst. Stable mild degree of cerebellar tonsillar ectopia. There is no intracranial hemorrhage. There are no findings of an acute ischemic infarction. Normal visualized paranasal sinuses. CT/Brain/Head W/WO Contrast IMPRESSION: Stable examination demonstrating a small arachnoid cyst overlying the left cerebellar hemisphere. Electronically Signed: Kris Gifford MD at 15:02 EDT , Service support ,
--- NOTE | 2020-09-10 14:15 | CT_ITS ---
STUDY: CT SOFT TISSUE NECK WITH CONTRAST REASON FOR EXAM: Male, 55 years old. NEOPLASM OF SKIN RADIATION DOSAGE (If Supplied By Facility): CTDIvol = ( 19.72 ) mGy, DLP = ( 650.26 ) mGycm TECHNIQUE: The patient was scanned in a multi-detector CT scanner. High resolution transaxial imaging was performed following intravenous administration of IV 100mL Isovue-300. Sagittal and coronal images were reconstructed. Individualized dose optimization techniques were used for this CT. COMPARISON: None. FINDINGS: Normal bilateral parotid glands. Normal bilateral insurance assistant spaces. Normal bilateral parapharyngeal spaces. Normal bilateral carotid spaces. Normal bilateral sublingual and submandibular glands and spaces. Normal visualized nasopharynx. Normal retropharyngeal space. Normal perivertebral space. Normal visualized bilateral faucial tonsils. The visualized tongue, tongue base and oropharynx are normal. There are minimally enlarged lymph nodes of the neck, with preservation of normal yony architecture, consistent with a reactive lymph hyperplasia. There is no demonstrated solid or cystic mass lesion. There is no abnormal contrast enhancement. Normal epiglottis, bilateral vallecula and hypopharynx. The pre-epiglottic and paraglottic adipose spaces are normal. Normal visualized bilateral piriform sinuses, aryepiglottic folds, vocal cords, and arytenoid-cricoid articulations. Normal subglottic trachea. Normal bilateral lobes of the thyroid gland. Normal visualized pulmonary apices. Normal visualized paranasal sinuses. Normal visualized cervical spine. CT/Soft Tissue Neck WITH Contrast IMPRESSION: Small mildly enlarged cervical lymph nodes. Electronically Signed: Kris Gifford MD at 15:04 EDT , Service support ,
--- NOTE | 2020-09-10 14:15 | CT_ITS ---
STUDY: LOW DOSE CT LUNG CANCER SCREENING REASON FOR EXAM: Male, 55 years old. NEOPLASM OF SKIN RADIATION DOSAGE (If Supplied By Facility): CTDIvol = ( 4.02 ) mGy, DLP = ( 166.98 ) mGycm TECHNIQUE: No contrast was administered. Low dose technique was utilized (average mAS-38 and kVp 120). 1.25 mm axial source images with a slice interval of 1.25-mm were reconstructed in lung windows. 2.5 mm axial source images with a slice interval of 2.5-mm were reconstructed in lung windows. 5.0 mm axial source images with a slice interval of 5.0-mm were reconstructed in soft tissue windows. Nodule measured using lung windows on PACS and/or independent workstation with automated measurement of minimum and maximum diameter. Nodule measurement reported as average diameter rounded to the nearest whole number. Growth is defined as an increase ins size of greater than 1.5 mm. COMPARISON: Comparison is made with prior study dated 09/25/2019. NODULES: No suspicious nodules are seen. Emphysema: Minimal degree of linear scarring in the lingular segment of the left upper lobe this is unchanged. Minimal increased markings in the posterior aspect of the right upper lobe abutting the fissure suggests some mild scarring. Endobronchial lesion: None Aorta: Minimal calcific plaque at the level of the aortic arch. Coronary arteries: Unremarkable Mediastinal nodes: Unremarkable Other chest and abdominal findings: CT/Low Dose CT Lung Screening IMPRESSION: Lung-RADS category 2 - Continue annual screening with LDCT in 12 months. IMPORTANT NOTES FOR USE: ACR Lung-RADS Version 1.1 Assessment Categories Release Date: 2018 Category: Coded 0-4 bases on nodule(s) with highest degree of suspicion. Negative screen is defined as categories 1 and 2; a positive screen is defined as categories 3 and 4. Category 3 and 4A nodules that are unchanged on interval CT should be coded as category 2, and individuals returned to screening in 12 months. Category 4X: Category 3 or 4 nodules with additional imaging findings that increase the suspicion of lung cancer, such as spiculation, GGN that doubles in size in 1 year, enlarged lymph notes, etc. Category Modifiers: S (significant finding unrelated to lung cancer) Electronically Signed: Kris Gifford MD at 15:05 EDT , Service support ,
[2020-09-10 14:31] LABS: CREATININE FINGERSTICK 0.8 mg/dL (0.70-1.30); EGFR FINGERSTICK > 60.0000 mL/min (>60)
== END ==
LOC: CT 14:10
DX: C44.300 Unspecified malignant neoplasm of skin of unspecified part of face (principal)
CPT/HCPCS: 70470; 70491; 71271; Q9967

== ENCOUNTER → 2020-09-15 11:14 | Outpatient (CLI) | payer OTHER, SELFPAY ==
[2019-08-02 16:24] VITALS: BMI 26.6
--- NOTE | 2020-09-15 11:18 | EKG12_ITS ---
Test Reason : ROUTINE Blood Pressure : / mmHG Vent. Rate : 073 BPM Atrial Rate : 073 BPM P-R Int : 200 ms QRS Dur : 108 ms QT Int : 416 ms P-R-T Axes : 058 090 070 degrees QTc Int : 458 ms Normal sinus rhythm Normal ECG Confirmed by CHEMO OCHOA, NATASHA ([id number]), slot editor ALBERT SANTO ([id number]) on 09/17/2020 11:35:56 AM Referred By: [facility] Confirmed By:NATASHA MCLAIN MD
== END ==
LOC: PSN 11:16
DX: R00.1 Bradycardia, unspecified (principal)
CPT/HCPCS: 93005

== ENCOUNTER 2020-11-28 17:49 | Inpatient (IN) | payer OTHER, SELFPAY ==
[2019-08-02 16:24] VITALS: BMI 26.6
[2020-11-28 17:51] VITALS: BP 151/84; PULSE 79; RESP 18; TEMP 35.8; O2SAT 95; BMI 30.5
[2020-11-28 17:52] VITALS: BP 151/84; PULSE 79; RESP 18; TEMP 35.8; O2SAT 95
--- NOTE | 2020-11-28 18:16 | EDS_ITS ---
HPI History of Present Illness Chief Complaint: Bite Informant: patient and spouse/S.O. Occured/Mechanism Comment: Dog bite to left hand on Sunday evening. Onset/Context/Timing Context: Gradual Onset Timing: Continuous Quality of Pain: Aching Current Severity: Mild Maximum Severity: Mild Narrative Narrative: 55-year-old male history of arthritis and back pain. He is not diabetic he is not immune compromised. Said on Sunday evening his own dog bit him on the hand. He started having redness and swelling on Sunday or Sunday and today and pain. He is also had subjective fever and chills at home and has not felt well. Prior similar symptoms: No Recent Illness/Hospitalization: No ROS ROS ED ROS Narrative Denies recent illness except the symptoms accompanying his dog bite. Review of Systems ROS Unobtainable: Denies due to encephalopathy Constitutional Constitutional ED: Reports chills, fever(s) and subjective Eyes Eyes: Denies change in vision ENT ENT ED: Denies ear pain or sore throat Cardiovascular Cardiovascular: Denies chest pain Respiratory/Chest Respiratory/Chest: Denies cough or dyspnea Gastrointestinal Gastrointestinal: Denies abdominal pain, diarrhea, nausea or vomiting Genitourinary Genitourinary ED: Denies dysuria Musculoskeletal Musculoskeletal: Reports myalgias Integumentary Denies rash Neurologic Neurologic: Denies headache(s) Psychiatric Psychiatric: Denies depression Endocrine Endocrinology: Denies polyuria Hematologic/Lymphatic Hematologic/Lymphatic: Denies easy bruising Allergic/Immunologic Allergic/Immunologic ED: Denies urticaria PFSH PFSH Medical History (Updated 11/28/20 @ 18:55 by Darlene Walden RN) Asthma Chronic pain COPD (chronic obstructive pulmonary disease) Depression On home oxygen therapy Home Medications Ibuprofen [Motrin] 800 mg PO BID 01/11/18 [History Last Taken 08/16/18] gabapentin 300 mg PO QHS 01/11/18 [History Last Taken 08/16/18] citalopram 40 mg PO DAILY 07/31/18 [History Last Taken 08/16/18] albuterol sulfate 1 - 2 puff INHALATION PRN PRN 08/17/18 [History Last Taken 08/16/18] Allergy/AdvReac Type Severity Reaction Status Date / Time No Known Allergies Allergy Verified 11/28/20 17:51 Social History Smoking Status: Current every day smoker tobacco type: cigarettes EXAM Physical Exam Narrative Exam Narrative: Middle-age male no acute distress vital signs stable afebrile does not look septic or toxic. Lungs are clear. Heart regular rhythm. Dorsum of left hand has dog bites that are closed. The left hand is swollen and red. It is only mildly tender. He can completely extend all digits. With flexion he has more pain. Left hand is neurovascularly intact with strong radial pulse. Cap refill and touch sensation are intact. The proximal forearm is nontender there is no streaks. The wrist and elbow are nontender. There is no axillary lymphadenopathy. Hand is obviously infected from the dog bite with cellulitis. Const Vital Signs: 11/28/20 17:51 11/28/20 17:52 Temperature 96.5 F L 96.5 F L Temperature Source Temporal Temporal Pulse Rate 79 79 Respiratory Rate 18 18 Blood Pressure 151/84 H 151/84 H Blood Pressure Mean 106 106 Pulse Ox 95 95 Oxygen Delivery Method Room Air Room Air Positive well nourished and well developed General Appearance ED: well developed HEENT Reports moist mucous membranes normocephalic and atraumatic Eyes PERRL Neck full ROM and no lymphadenopathy Resp normal respiratory effort and clear to auscultation bilaterally Cardio regular rate, regular rhythm and no murmurs GI non-tender, non-distended and no masses Auscultation: normoactive bowel sounds Palpation: soft; Negative for tender Extremity normal to inspection Extremity Narrative: Left hand swollen, red consistent with cellulitis from dog bite. Close dog bite wounds on the dorsum of the left hand along the MCP of the left index ring and long fingers. He is able to fully extend all digits of the left hand. He has more discomfort with flexion. Cap refill intact. Sensation intact. No lymphangitic streaking at this time. Wrist is nontender. Psych mental status grossly normal Skin Rashes: no rashes MDM MDM MDM Narrative Medical decision making narrative: Patient with infected left hand status post dog bite on Sunday. He will be started on IV Unasyn. Screening labs. I will speak to the hospitalist about admission. Repeat exam patient is currently receiving his IV antibiotics and is doing well at 7 PM. Have the hospitalist on page. Lab Data Lab results narrative: CBC has elevated white count of 15,000 consistent with a cellulitis of the left hand. Electrolytes are unremarkable normal gap. Labs: Laboratory Results - last 24 hr 11/28/20 11/28/20 18:30 18:30 WBC 15.3 H RBC 4.29 L Hgb 14.0 Hct 42.5 MCV 99.1 H MCH 32.6 H MCHC 32.9 RDW Std Deviation 44.0 H RDW Coeff of Acacia 12.0 Plt Count 263 MPV 9.1 Immature Gran % (Auto) 0.800 Neut % (Auto) 75.4 H Lymph % (Auto) 11.6 L [place] % (Auto) 9.9 Eos % (Auto) 1.8 Baso % (Auto) 0.5 Absolute Neuts (auto) 11.5 H Absolute Lymphs (auto) 1.78 Nucleated RBC % 0 Differential Comment SCANNED Diff Path Review May foll Sodium 141 Potassium 3.9 Chloride 105 Carbon Dioxide 30.0 Anion Gap 6 BUN 13 Creatinine 0.79 Estim Creat Clear Calc 115.96 Est GFR (MDRD) Af Amer 130 Est GFR (MDRD) Non-Af 108 BUN/Creatinine Ratio 16.4 Glucose 107 H Calcium 8.5 Discharge Plan Dx/Rx/DC Orders Clinical Impression: Cellulitis of hand, left, Dog bite of left hand Disposition Disposition: Acute Care Hospital [facility]
[2020-11-28 18:33] LABS: Absolute Lymphocyte Count 1.78 X10^3/uL (0.83-4.51); Absolute Neutrophil Count 11.5 X10^3/uL (2.0-7.7); Basophil# 0.08 X10^3/uL; Basophil% 0.5 % (0-1); Eosinophil# 0.27 X10^3/uL; Eosinophils% 1.8 % (0-5); Hematocrit 42.5 % (40-54); Lymphocyte # 1.78 X10^3/ul (0.83-4.51); Lymphocyte % 11.6 % (19-41); Mean Corp Hgb Conc 32.9 g/dL (32-36); Mean Corpuscular Hgb 32.6 pg (27.0-32.0); Mean Corpuscular Volume 99.1 fL (80-94); Mean Platelet Vol. 9.1 fl (6.2-12.0); Monocyte# 1.52 X10^3/uL; Monocyte% 9.9 % (0-10); NRBC Flagged by Analyzer 0 % (0-5); Neutrophil # 11.51 X10^3/uL (2.7-7.7); Neutrophil % 75.4 % (47-70); POSITIVE DIFFERENTIAL YES; Platelet Count 263 K/mm3 (150-450); Red Blood Count 4.29 M/mm3 (4.6-6.2); White Blood Count 15.3 K/mm3 (4.4-11.0)
[2020-11-28 18:46] LABS: Anion Gap 6 (5-15); BUN 13 mg/dL (7-18); BUN/Creat Ratio 16.4 RATIO (10-20); Calcium,Total 8.5 mg/dL (8.5-10.1); Chloride 105 mmol/L (98-107); Creatinine, Serum 0.79 mg/dL (0.70-1.30); EST Glomerular Filtration Rate 108 mL/min (>60); Est Glom Filt Rate - Afr Amer 130 mL/min (>60); Estimated Creatinine Clearance 115.96 ml/min; Glucose 107 mg/dL (74-106); Potassium 3.9 mmol/L (3.5-5.1); Sodium Level 141 mmol/L (136-145)
[2020-11-28 18:49] LABS: Differential Comment SCANNED
[2020-11-28 18:50] LABS: Differential Indicated SCAN CRITERIA MET
--- NOTE | 2020-11-28 19:10 | PCM.HP.STD ---
HPI - General General Date of Admission: 11/28/20 HPI Narrative VINCENT FULTON, is a 55 M with a significant history of asthma; COPD on home nightly oxygen; osteoarthritis; depression who presents with a dog bite. Six days prior to presentation his own dog bit the dorsal side of his left hand. He had no symptoms on that day. However 4 days later he developed swelling; redness; lethargy; headache; subjective fever; intermittent chills; and nausea. Further he has anorexia. He also has a pain in his left hand. The pain in his left hand increases when he tries to make a fist. [facility] Medical History Asthma Chronic pain COPD (chronic obstructive pulmonary disease) Depression On home oxygen therapy Home Medications Ibuprofen [Motrin] 800 mg PO BID 01/11/18 [History Last Taken 08/16/18] gabapentin 300 mg PO QHS 01/11/18 [History Last Taken 08/16/18] citalopram 40 mg PO DAILY 07/31/18 [History Last Taken 08/16/18] albuterol sulfate 1 - 2 puff INHALATION PRN PRN 08/17/18 [History Last Taken 08/16/18] Allergy/AdvReac Type Severity Reaction Status Date / Time No Known Allergies Allergy Verified 11/28/20 17:51 Family History Mother Breast cancer Father Heart disease Surgical History History of appendectomy Social History Smoking Status: Current every day smoker tobacco type: cigarettes ROS ROS Narrative 12 point review of system is negative except as stated in HPI. Vital Signs Vital Signs Vital Signs: 11/28/20 17:51 11/28/20 17:52 Temperature 96.5 F L 96.5 F L Temperature Source Temporal Temporal Pulse Rate 79 79 Respiratory Rate 18 18 Blood Pressure 151/84 H 151/84 H Blood Pressure Mean 106 106 Pulse Ox 95 95 Oxygen Delivery Method Room Air Room Air Weight Weight: 102.058 kg Body Mass Index (BMI) 30.5 Physical Exam Narrative Physical exam: General: Well-nourished, well-developed, no acute distress Head: Normocephalic, atraumatic, no tenderness Eyes: PERRLA, EOMI ENT, no trauma, moist mucous membranes, no rhinorrhea Neck: Nontender, full range of motion, no spinal tenderness, deformities, step-off CVS: Regular rate and rhythm Respiratory no acute distress, clear to auscultation bilaterally, chest wall nontender, no wheezing Abdomen: Soft, nontender, nondistended, normal bowel sounds, no masses : Deferred Back: Nontender, no CVA tenderness, no midline spinal tenderness, deformities, step-offs Extremities: Swelling of left hand. Erythema of left hand. Bites rowe on dorsum of left hand. Tender left hand. Able to do apposition with fingers of left hand. Unable to make a fist with left hand. Right hand with no swelling no erythema no tenderness. Skin: Normal color, no trauma, abrasions Neuro: Alert, oriented, cranial nerves II through XII grossly intact. Results Lab / Micro Data Result Diagrams: 11/28/20 18:30 11/28/20 18:30 Labs: Laboratory Results - last 24 hr 11/28/20 11/28/20 18:30 18:30 WBC 15.3 H RBC 4.29 L Hgb 14.0 Hct 42.5 MCV 99.1 H MCH 32.6 H MCHC 32.9 RDW Std Deviation 44.0 H RDW Coeff of Acacia 12.0 Plt Count 263 MPV 9.1 Immature Gran % (Auto) 0.800 Neut % (Auto) 75.4 H Lymph % (Auto) 11.6 L [place] % (Auto) 9.9 Eos % (Auto) 1.8 Baso % (Auto) 0.5 Absolute Neuts (auto) 11.5 H Absolute Lymphs (auto) 1.78 Nucleated RBC % 0 Differential Comment SCANNED Diff Path Review May foll Sodium 141 Potassium 3.9 Chloride 105 Carbon Dioxide 30.0 Anion Gap 6 BUN 13 Creatinine 0.79 Estim Creat Clear Calc 115.96 Est GFR (MDRD) Af Amer 130 Est GFR (MDRD) Non-Af 108 BUN/Creatinine Ratio 16.4 Glucose 107 H Calcium 8.5 Assessment & Plan Assessment/Plan (1) Dog bite: QUALIFIERS: Encounter type: initial encounter Qualified Code(s): W54.0XXA - Bitten by dog, initial encounter (2) Cellulitis: QUALIFIERS: Laterality: left Site of cellulitis: extremity Site of cellulitis of extremity: upper extremity Qualified Code(s): L03.114 - Cellulitis of left upper limb (3) Smoking: PLAN: Dog bite of cellulitis Reviewed which is department labs showed white count of 15.3 and with neutrophilic predominance and lymphopenia.. Trend CBC. Patient report that his dog has had all immunization including rabies. Tetanus shot ordered at the emergency department as patient was unsure of his last tetanus. Received Unasyn at emergency department and continued. Tobacco abuse Counseled. Declined nicotine patch. COPD Home inhalers continued. Continue nightly oxygen. DVT prophylaxis: Subcutaneous Lovenox ordered. Charges/Coding Visit Charges Inpatient E&M: 03007 Init Hosp L2
[2020-11-28 19:15] VITALS: BP 140/78; PULSE 78; RESP 18; TEMP 35.8; O2SAT 97
[2020-11-28] MEDS: Diphth,Pertuss(Acell),Tet Vac 0.5 ML Vial IM (19:34)
[2020-11-28 20:05] VITALS: BP 132/73; PULSE 79; RESP 18; TEMP 36.9; O2SAT 96
[2020-11-28 20:09] VITALS: BMI 32.1
[2020-11-28] MEDS: Albuterol 2.5 MG/3 ML VIAL.NEB. INHALATION (21:55)
[2020-11-28 21:57] VITALS: PULSE 69; RESP 12
[2020-11-29] MEDS: 0.9% Saline Lock 10 ML Syringe IV (00:02)
[2020-11-29 02:44] VITALS: BP 124/61; PULSE 72; RESP 18; TEMP 36.9; O2SAT 95
[2020-11-29] MEDS: Ibuprofen 400 MG Tablet 800 MG PO ×2 (02:50→18:25)
[2020-11-29 07:02] LABS: Absolute Lymphocyte Count 1.98 X10^3/uL (0.83-4.51); Absolute Neutrophil Count 7.4 X10^3/uL (2.0-7.7); Basophil# 0.07 X10^3/uL; Basophil% 0.6 % (0-1); Eosinophil# 0.44 X10^3/uL; Hemoglobin 12.6 g/dL (13.0-16.5); Lymphocyte # 1.98 X10^3/ul (0.83-4.51); Lymphocyte % 17.9 % (19-41); Mean Corp Hgb Conc 32.3 g/dL (32-36); Mean Corpuscular Hgb 32.1 pg (27.0-32.0); Mean Corpuscular Volume 99.5 fL (80-94); Mean Platelet Vol. 9.6 fl (6.2-12.0); Monocyte% 9.9 % (0-10); NRBC Flagged by Analyzer 0 % (0-5); Neutrophil # 7.39 X10^3/uL (2.7-7.7); Neutrophil % 66.9 % (47-70); Platelet Count 232 K/mm3 (150-450); RBC Distribution Width CV 11.9 % (11.6-14.6); RBC Distribution Width SD 43.6 fl (35.1-43.9); Red Blood Count 3.92 M/mm3 (4.6-6.2); White Blood Count 11.1 K/mm3 (4.4-11.0)
[2020-11-29 07:30] LABS: Anion Gap 7 (5-15); BUN 13 mg/dL (7-18); BUN/Creat Ratio 18.5 RATIO (10-20); Calcium,Total 8.2 mg/dL (8.5-10.1); Chloride 104 mmol/L (98-107); EST Glomerular Filtration Rate 124 mL/min (>60); Est Glom Filt Rate - Afr Amer 150 mL/min (>60); Estimated Creatinine Clearance 130.87 ml/min; Glucose 106 mg/dL (74-106); Potassium 4.2 mmol/L (3.5-5.1); Sodium Level 139 mmol/L (136-145)
[2020-11-29 08:28] VITALS: BP 128/70; PULSE 70; RESP 16; TEMP 36.8; O2SAT 95
[2020-11-29] MEDS: Enoxaparin 40 MG/0.4 ML Syringe SC (08:42)
[2020-11-29] MEDS: Citalopram 40 MG TABLET PO (08:42)
[2020-11-29] MEDS: Gabapentin 300 MG Capsule PO (08:42)
--- NOTE | 2020-11-29 10:20 | CASEMGMT ---
N CM Face to Face with patient for initial transition planning/care coordination assessment. RN CM introduced self and role at [facility]. Patient lying in bed, alert and oriented. Patient willing to participate in assessment and is able to answer all questions appropriately. Care providers, pharmacy, and demographics verified. Patient wishes to discharge home, denies need for home health at this time. Patient states he has no further needs or concerns at this time. CM to follow for discharge planning needs that may arise. PCP: Arleen Holguin Specialists: none Preferred Pharmacy: [facility] Insurance: MMO Prescription Benefit: yes Living Will/HPOA: none LNOK: son, mother Living Arrangements: Patient lives with a roommate in a 2 story home. Patient states he is independent at home and able to ambulate stairs. Transportation: self, neighbor DME/HHC: Patient states he has nebulizer and home oxygen at 2lpm at through [employer]. Patient denies previous HHC. Will monitor need for HHC pending course of treatment for wound care and antibiotics. Disposition Plan: Patient to discharge home with follow-up plans in place. Bertha PEREA, RN, CM
--- NOTE | 2020-11-29 10:40 | PCM.PN.HOSP ---
Subjective Subjective Patient was seen and examined. He denied any new complaint. His left hand and forearm is less swollen, he still not able to make a fist. He denied any fever or chills or diarrhea or nausea or vomiting Objective Data Objective Data Vital Signs: Vital Signs Temp Pulse Resp BP Pulse Ox 98.3 F 70 16 128/70 H 95 11/29/20 08:28 11/29/20 08:28 11/29/20 08:28 11/29/20 08:28 11/29/20 08:28 Oxygen Delivery Method Room Air Weight: 107.7 kg Body Mass Index (BMI) 32.1 Intake & Output: Intake and Output for Last 24 Hours 11/27/20 11/28/20 11/29/20 23:59 23:59 23:59 Intake Total 112 / 112 1224 / 1224 Output Total 300 / 300 Balance 112 / 112 924 / 924 Lab / Micro Data Result Diagrams: 11/29/20 06:15 11/29/20 06:15 Labs: Laboratory Results - last 24 hr 11/28/20 11/28/20 11/29/20 18:30 18:30 06:15 WBC 15.3 H 11.1 H RBC 4.29 L 3.92 L Hgb 14.0 12.6 L Hct 42.5 39.0 L MCV 99.1 H 99.5 H MCH 32.6 H 32.1 H MCHC 32.9 32.3 RDW Std Deviation 44.0 H 43.6 RDW Coeff of Acacia 12.0 11.9 Plt Count 263 232 MPV 9.1 9.6 Immature Gran % (Auto) 0.800 0.700 Neut % (Auto) 75.4 H 66.9 Lymph % (Auto) 11.6 L 17.9 L [place] % (Auto) 9.9 9.9 Eos % (Auto) 1.8 4.0 Baso % (Auto) 0.5 0.6 Absolute Neuts (auto) 11.5 H 7.4 Absolute Lymphs (auto) 1.78 1.98 Nucleated RBC % 0 0 Differential Comment SCANNED Diff Path Review May foll Sodium 141 Potassium 3.9 Chloride 105 Carbon Dioxide 30.0 Anion Gap 6 BUN 13 Creatinine 0.79 Estim Creat Clear Calc 115.96 Est GFR (MDRD) Af Amer 130 Est GFR (MDRD) Non-Af 108 BUN/Creatinine Ratio 16.4 Glucose 107 H Calcium 8.5 11/29/20 06:15 WBC RBC Hgb Hct MCV MCH MCHC RDW Std Deviation RDW Coeff of [place]acia Plt Count MPV Immature Gran % (Auto) Neut % (Auto) Lymph % (Auto) [place] % (Auto) Eos % (Auto) Baso % (Auto) Absolute Neuts (auto) Absolute Lymphs (auto) Nucleated RBC % Differential Comment Diff Path Review Sodium 139 Potassium 4.2 Chloride 104 Carbon Dioxide 28.0 Anion Gap 7 BUN 13 Creatinine 0.70 Estim Creat Clear Calc 130.87 Est GFR (MDRD) Af Amer 150 Est GFR (MDRD) Non-Af 124 BUN/Creatinine Ratio 18.5 Glucose 106 Calcium 8.2 L Physical Exam Narrative Physical exam: General: Alert, Oriented x3, Cooperative, No apparent distress, Well developed HEENT: Atraumatic Oral: Moist Mucosa Neck: Supple Lungs: Clear to auscultation Cardiovascular: HS I+II, regular, no murmurs Abdomen: Bowel Sounds Present, Soft, Non Tender Extremities: Erythema and edema of the left forearm and hand,with scratch rowe, improving Skin: No rashes, No breakdown Neurological: Grossly intact Psych/Mental Status: Appropriate Assessment & Plan Assessment/Plan (1) Dog bite of left hand: QUALIFIERS: Encounter type: subsequent encounter Qualified Code(s): S61.452D - Open bite of left hand, subsequent encounter; W54.0XXD - Bitten by dog, subsequent encounter (2) Cellulitis of hand, left: PLAN: 1. Acute cellulitis of his left forearm/hand secondary to dog bite, slowly improving, Continue to elevate hand, continue on IV Unasyn Will consult OT to evaluate and treat 2. Nicotine dependence, on replacement 3. COPD, remains stable Charges/Coding Visit Charges Inpatient E&M: 44124 Subs Hosp L2
[2020-11-29 15:58] VITALS: BP 123/76; PULSE 76; RESP 20; TEMP 36.7; O2SAT 95
[2020-11-29 18:49] VITALS: PULSE 74; RESP 20
[2020-11-29] MEDS: Ipratropium/Albuterol Sulfate 3 ML AMPUL.NEB INHALATION (18:49)
[2020-11-29] MEDS: Budesonide Respules 0.5 MG/2 ML AMPUL.NEB. INHALATION (18:49)
[2020-11-29 20:53] VITALS: BP 122/82; PULSE 72; RESP 18; TEMP 36.6; O2SAT 98
[2020-11-30 04:00] VITALS: BP 121/77; PULSE 65; RESP 18; TEMP 36.5; O2SAT 96
[2020-11-30 06:45] LABS: Absolute Lymphocyte Count 1.74 X10^3/uL (0.83-4.51); Absolute Neutrophil Count 4.6 X10^3/uL (2.0-7.7); Basophil# 0.07 X10^3/uL; Basophil% 0.9 % (0-1); Eosinophil# 0.63 X10^3/uL; Eosinophils% 7.9 % (0-5); Hematocrit 39.2 % (40-54); Hemoglobin 12.7 g/dL (13.0-16.5); Lymphocyte # 1.74 X10^3/ul (0.83-4.51); Lymphocyte % 21.8 % (19-41); Mean Corp Hgb Conc 32.4 g/dL (32-36); Mean Corpuscular Hgb 32.4 pg (27.0-32.0); Mean Platelet Vol. 9.5 fl (6.2-12.0); Monocyte# 0.83 X10^3/uL; Monocyte% 10.4 % (0-10); NRBC Flagged by Analyzer 0 % (0-5); Neutrophil # 4.64 X10^3/uL (2.7-7.7); Neutrophil % 58.1 % (47-70); Platelet Count 247 K/mm3 (150-450); RBC Distribution Width SD 43.9 fl (35.1-43.9); Red Blood Count 3.92 M/mm3 (4.6-6.2)
[2020-11-30 07:12] LABS: ALB/GLOB Ratio 0.9 RATIO (0.9-2.4); AST(SGOT) 12 U/L (15-37); Alanine Aminotransfer ALT/SGPT 14 U/L (16-61); Albumin, Serum 2.8 g/dL (3.2-5.0); Alkaline Phosphatase 71 U/L (45-117); Anion Gap 4 (5-15); BUN 11 mg/dL (7-18); BUN/Creat Ratio 17.4 RATIO (10-20); Calcium,Total 8.2 mg/dL (8.5-10.1); Chloride 107 mmol/L (98-107); Creatinine, Serum 0.63 mg/dL (0.70-1.30); EST Glomerular Filtration Rate 140 mL/min (>60); Est Glom Filt Rate - Afr Amer 169 mL/min (>60); Estimated Creatinine Clearance 145.41 ml/min; Glucose 98 mg/dL (74-106); Potassium 4.3 mmol/L (3.5-5.1); Protein, Total 5.8 g/dL (6.4-8.2); Sodium Level 142 mmol/L (136-145)
[2020-11-30] MEDS: Budesonide Respules 0.5 MG/2 ML AMPUL.NEB. INHALATION (07:43)
[2020-11-30 09:17] VITALS: PULSE 78; RESP 18; O2SAT 98
[2020-11-30] MEDS: Enoxaparin 40 MG/0.4 ML Syringe SC (09:55)
[2020-11-30] MEDS: Ibuprofen 400 MG Tablet 800 MG PO (09:55)
[2020-11-30] MEDS: Citalopram 40 MG TABLET PO (09:56)
[2020-11-30 09:58] VITALS: BP 114/75; PULSE 65; PULSE 70; RESP 18; TEMP 36.9; O2SAT 93
--- NOTE | 2020-11-30 10:37 | PCM.DC ---
Discharge Instructions Diet Discharge Diet: No restrictions Activity Discharge Activity: Return to Normal Activity Keep extremity elevated above heart level: Left Arm (left upper extremity elevated in a sling) Follow Up Care Test Results: Test results from this visit will be discussed in further detail at your follow-up appointment, if applicable. Discharge Plan Admission Admit Date/Time: 11/28/20 19:09 Primary Reason for Your Visit: Left hand cellulitis Attending Provider: Cristal Dangelo [facility] Instructions Additional Instructions / Restrictions: Continue to keep your left upper extremity elevated. Continue to exercise to upper extremity. Complete your antibiotics. Follow-up with your primary care doctor within 1 week. Discharge Orders/Prescriptions Prescriptions: New amoxicillin-pot clavulanate [Augmentin] 875-125 mg tablet 1 tab PO BID Qty: 12 RF: 0 Continued gabapentin 300 MG capsule 300 mg PO QHS RF: 0 Ibuprofen [Motrin] 800 MG tablet 800 mg PO BID RF: 0 citalopram 40 MG tablet 40 mg PO DAILY RF: 0 albuterol sulfate 108 HFA aerosol inhaler 1 - 2 puff inhalation PRN PRN (Reason: Shortness Of Breath) RF: 0 budesonide-formoterol [Symbicort] 160-4.5 mcg/actuation HFA aerosol inhaler 1 puff INHALATION BID RF: 0 Spiriva Respimat 2.5 mcg/actuation mist 1 puff INHALATION BID RF: 0 [facility] / [facility] - In 1 Week Disposition Disposition (needs filled in before D/C Order can be placed): Home, Self Care
--- NOTE | 2020-11-30 10:38 | DS.PCM_ITS ---
Providers Date of Admission: 11/28/20 Date of Discharge: 11/30/20 Primary Care Physician: [facility] Reason For Visit: DOG BITE WITH CELLULITIS OF EXTREMITY Diagnosis Discharge Diagnosis (1) Dog bite of left hand: Status: Acute Code(s): S61.452A - Open bite of left hand, initial encounter; W54.0XXA - Bitten by dog, initial encounter Qualifiers: Encounter type: subsequent encounter Qualified Code(s): S61.452D - Open bite of left hand, subsequent encounter; W54.0XXD - Bitten by dog, subsequent encounter (2) Cellulitis of hand, left: Status: Acute Code(s): L03.114 - Cellulitis of left upper limb Medications at Discharge Home Medications Ibuprofen [Motrin] 800 mg PO BID 01/11/18 gabapentin 300 mg PO QHS 01/11/18 citalopram 40 mg PO DAILY 07/31/18 albuterol sulfate 1 - 2 puff INHALATION PRN PRN 08/17/18 Spiriva Respimat 1 puff INHALATION BID 11/28/20 budesonide-formoterol [Symbicort] 1 puff INHALATION BID 11/28/20 amoxicillin-pot clavulanate [Augmentin] 1 tab PO BID #12 tab 11/30/20 Hospital Course Operations None Procedures None Summary of Care Provided Minutes Spent on Discharge: 45 Hospital Course: 55-year-old male with past medical history of asthma/COPD, who presented with a 6-day history of dog bite to the dorsum of his left hand. Patient stated 4 days after the bite, he developed swelling and redness as well as headaches with subjective fever and intermittent chills. Patient had elevated white cell count but no other SIRS. He received tetanus shot in the ED. He was started on IV Unasyn for cellulitis of his left hand as well as forearm. Patient continued to improve and [facility] He was discharged on Augmentin to complete a 1 week t reatment. Occupational Therapy was consulted during this hospital stay to see patient. He was strongly advised to follow-up with his primary care doctor within 1 week. Physical Exam Narrative General: Alert, Oriented x3, Cooperative, No apparent distress, Well developed HEENT: Atraumatic Oral: Moist Mucosa Neck: Supple Lungs: Clear to auscultation Cardiovascular: HS I+II, regular, no murmurs Abdomen: Bowel Sounds Present, Soft, Non Tender Extremities: Erythema and edema of the left forearm and hand,with scratch rowe, improving Skin: No rashes, No breakdown Neurological: Grossly intact Psych/Mental Status: Appropriate Weight / BMI Weight Weight: 107.7 kg Body Mass Index (BMI) 32.1 ABG / Lab / Microbiology Data Result Diagrams: 11/30/20 06:12 11/30/20 06:12 Laboratory: Laboratory Results - last 24 hr 11/30/20 11/30/20 06:12 06:12 WBC 8.0 RBC 3.92 L Hgb 12.7 L Hct 39.2 L MCV 100.0 H MCH 32.4 H MCHC 32.4 RDW Std Deviation 43.9 RDW Coeff of [place]acia 12.0 Plt Count 247 MPV 9.5 Immature Gran % (Auto) 0.900 Neut % (Auto) 58.1 Lymph % (Auto) 21.8 [place] % (Auto) 10.4 H Eos % (Auto) 7.9 H Baso % (Auto) 0.9 Absolute Neuts (auto) 4.6 Absolute Lymphs (auto) 1.74 Nucleated RBC % 0 Sodium 142 Potassium 4.3 Chloride 107 Carbon Dioxide 31.0 Anion Gap 4 L BUN 11 Creatinine 0.63 L Estim Creat Clear Calc 145.41 Est GFR (MDRD) Af Amer 169 Est GFR (MDRD) Non-Af 140 BUN/Creatinine Ratio 17.4 Glucose 98 Calcium 8.2 L Total Bilirubin 0.30 AST 12 L ALT 14 L Alkaline Phosphatase 71 Total Protein 5.8 L Albumin 2.8 L Globulin 3.0 Albumin/Globulin Ratio 0.9 D/C Instructions Discharge Diet: No restrictions Keep extremity elevated above heart level: Left Arm (left upper extremity josé miguel vated in a sling) Meaningful Use Info Meaningful Use Diagnoses (Choose all that apply): None applicable Discharge Plan Admission Admit Date/Time: 11/28/20 19:09 Primary Reason for Your Visit: Left hand cellulitis Attending Provider: Cristal Dangelo [facility] Instructions Additional Instructions / Restrictions: Continue to keep your left upper extremity elevated. Continue to exercise to upper extremity. Complete your antibiotics. Follow-up with your primary care doctor within 1 week. Discharge Orders/Prescriptions Prescriptions: New amoxicillin-pot clavulanate [Augmentin] 875-125 mg tablet 1 tab PO BID Qty: 12 RF: 0 Continued gabapentin 300 MG capsule 300 mg PO QHS RF: 0 Ibuprofen [Motrin] 800 MG tablet 800 mg PO BID RF: 0 citalopram 40 MG tablet 40 mg PO DAILY RF: 0 albuterol sulfate 108 HFA aerosol inhaler 1 - 2 puff inhalation PRN PRN (Reason: Shortness Of Breath) RF: 0 budesonide-formoterol [Symbicort] 160-4.5 mcg/actuation HFA aerosol inhaler 1 puff INHALATION BID RF: 0 Spiriva Respimat 2.5 mcg/actuation mist 1 puff INHALATION BID RF: 0 Referrals / Follow Up: Medical Arnett,Arleen Diallo [Primary Care Provider] - In 1 Week Disposition Disposition (needs filled in before D/C Order can be placed): Home, Self Care Charges/Coding Visit Charges Inpatient E&M: 93559 Disch Hosp
[2020-11-30 11:31] LABS: Pathologist Review Reviewed
[2020-11-30 13:18] VITALS: BP 132/73; PULSE 73; RESP 18; TEMP 37.1; O2SAT 96
--- NOTE | 2020-11-30 14:33 | CASEMGMT ---
Received paperwork per fax from [employer] for patient's short term disability. Attempted to give pt paperwork making aware to ask PCP to complete when he completes his follow up appt. Pt states he needs the physician to complete it that is not allowing him to work tomorrow. Spoke with who reinforced that pt will have PCP complete. She signed a work note for one week off. CRISTIAN CM back to pt room to make aware. Pt states he has done this before and the company will end up having the hospitalist complete. Paperwork given to him.
--- NOTE | 2020-11-30 15:00 | CASEMGMT ---
Pt screened with [facility] Palliative Care Screening Tool due to strata 3, pt did not meet criteria.
--- NOTE | 2020-12-01 12:35 | CASEMGMT ---
CRISTIAN CM Discharge Follow-Up Phone Call. Lace: 10 Strata: 3 Discharge Date: 11/30/20 Adm Dx: Dog bite w/cellulitis of extremity Attempted discharge f/u phone call. No answer. Non-identifying VM received. Non-descript VM left requesting return call if there are any questions or concerns. Phone number provided. Anette PEREA RN CM
== END 2020-11-30 14:34 | disposition home or self-care (01) | DRG 603 ==
LOC: ED 18:39 → MS3 19:16
PROVIDERS: Admitting Provider Hospitalist; Emergency Provider Emergency Medicine; Visit Provider Internal Medicine
DX: L03.114 Cellulitis of left upper limb (principal); S61.452A Open bite of left hand, initial encounter; M19.90 Unspecified osteoarthritis, unspecified site; J44.9 Chronic obstructive pulmonary disease, unspecified; F32.9 Major depressive disorder, single episode, unspecified; F17.210 Nicotine dependence, cigarettes, uncomplicated; W54.0XXA Bitten by dog, initial encounter; Y93.9 Activity, unspecified; Y92.9 Unspecified place or not applicable; Y99.9 Unspecified external cause status; Z23 Encounter for immunization; Z79.51 Long term (current) use of inhaled steroids; Z99.81 Dependence on supplemental oxygen; Z79.899 Other long term (current) drug therapy
CPT/HCPCS: 36415; 80048; 80053; 85025; 90715; 94640; 97166; 99285; 99406; J7050; A4216; J0295

== ENCOUNTER 2022-01-30 13:56 | Emergency (ER) | payer OTHER, SELFPAY ==
[2022-01-30 13:57] VITALS: BP 121/91; PULSE 79; RESP 15; TEMP 36.6; O2SAT 98; BMI 29.0
--- NOTE | 2022-01-30 14:22 | EX.ED.DYSGE1 ---
HPI History of Present Illness Chief Complaint: Cough Informant: patient Narrative Narrative: Patient presents with now 6 days of myalgias, decreased energy/malaise, subjective fevers, very minimal cough, headache. Patient states he had a bad headache on Sunday. 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 But now the headaches gotten better. He has never had nausea vomiting or rash. No vesicles. No trauma. No neurologic symptoms. He has an occasional slight cough but he states that is common with his COPD and it is not worse or different. He is not short of breath and brings up no sputum. He has definite malaise myalgias. His greatest concern is that he has not gone to work because of this. That is very appropriate considering the current viruses that are out there and trying to avoid exposure to others. But he is concerned about losing job because of missing work with his illness. He states he is finally getting better but he still had the chills this morning. The headache is now gone. He still has malaise and myalgias. He took a COVID test on Sunday at home which was negative PFSH PFS Medical History Anxiety Asthma Chest pain Chronic pain COPD (chronic obstructive pulmonary disease) Depression On home oxygen therapy Sleep apnea Smoker Home Medications Ibuprofen [Motrin] 800 mg PO BID pain 01/11/18 [History Last Taken 11/28/20 13:00] gabapentin 300 mg capsule 300 mg PO QHS arthritis 01/11/18 [History Last Taken 11/27/20 23:00] citalopram 40 mg tablet 40 mg PO DAILY depression 07/31/18 [History Last Taken 11/28/20 13:00] albuterol sulfate 90 mcg/actuation aerosol inhaler 1 - 2 puff inhalation PRN PRN Shortness Of Breath 08/17/18 [History Last Taken 11/25/20 18:00] budesonide-formoterol HFA 160 mcg-4.5 mcg/actuation aerosol inhaler (Symbicort) 1 puff inhalation BID copd 11/28/20 [History Last Taken 11/27/20 18:00] tiotropium bromide 2.5 mcg/actuation mist for inhalation (Spiriva Respimat) 1 puff inhalation BID copd 11/28/20 [History Last Taken 11/27/20 18:00] amoxicillin 875 mg-potassium clavulanate 125 mg tablet (Augmentin) 1 tab PO BID #12 tabs 11/30/20 [Rx Last Taken Unknown] Allergy/AdvReac Type Severity Reaction Status Date / Time No Known Allergies Allergy Verified 01/30/22 13:57 Family History Mother Breast cancer Father Heart disease Surgical History History of appendectomy Social History Smoking Status: Current every day smoker tobacco type: cigarettes ROS ROS ED Constitutional Constitutional ED: Reports chills, fever(s), subjective and sweats Eyes Eyes: Denies blurry vision, change in vision or diplopia ENT ENT ED: Denies rhinorrhea or sore throat Cardiovascular Cardiovascular: Denies chest pain Respiratory/Chest Respiratory/Chest: Reports cough; Denies dyspnea or sputum Gastrointestinal Gastrointestinal: Denies abdominal pain, diarrhea, nausea or vomiting Genitourinary Genitourinary ED: Denies dysuria or hematuria Musculoskeletal Musculoskeletal: Reports arthralgias and myalgias Integumentary Denies abscess, Abrasions or rash Neurologic Neurologic: Reports headache(s); Denies paresthesias or weakness Psychiatric Psychiatric: Reports anxiety Endocrine Endocrinology: Denies polyuria Hematologic/Lymphatic Hematologic/Lymphatic: Denies anemia EXAM Physical Exam Const Vital Signs: 01/30/22 13:57 Temperature 97.8 F Temperature Source Temporal Pulse Rate 79 Respiratory Rate 15 Blood Pressure 121/91 H Blood Pressure Mean 101 Pulse Ox 98 Oxygen Delivery Method Room Air Positive well nourished and well developed General Appearance ED: well developed HEENT Reports moist mucous membranes HEENT Narrative: No exudates. No temporal artery tenderness. No sinus tenderness Eyes PERRL and EOMs intact bilaterally Eyes Narrative: No photophobia Neck Neck Narrative: No lymphadenopathy or meningismus. Chest Wall inspection of chest normal Resp normal respiratory effort Auscultation: Negative for rales, rhonchi or wheezes Cardio regular rate and regular rhythm GI normal to inspection, nondistended, normoactive bowel sounds and non-tender Palpation: soft Back/Spine no CVA tenderness Extremity normal to inspection Extremity Narrative: No edema. I see no rashes or vesicles. Psych mental status grossly normal Skin no rashes or lesions noted Lesions: No lesion noted Rashes: No rashes noted Trauma: Negative for abrasion MDM MDM MDM Narrative Medical decision making narrative: I talked to the patient about options. It is certainly possible as viral meningitis. We discussed lumbar puncture but he states no way will he have that done. He is feeling better. His biggest concern is making sure he does not get in trouble from work. His lungs are clear despite COPD/asthma. He states the cough is not different than his chronic cough. I do not think an x-ray is needed. His saturations are normal. I offered influenza testing and PCR testing. He does not want this done either. Since he is 6 days into symptoms and they are now improving I think it is reasonable that he just self isolate until symptoms are resolved. I will write him off for couple days. This is appropriate to decrease spread of illnesses. Discharge Plan Triage Chief Complaint: Cough ED Provider: Jag Fry Dx/Rx/DC Orders Clinical Impression: Acute viral syndrome Instructions: ED Viral Syndrome (Adult) Prescriptions: No Action gabapentin 300 MG capsule 300 mg PO QHS Label Comments: TAKE 1 CAPSULE BY MOUTH THREE TIMES DAILY Ibuprofen [Motrin] 800 MG tablet 800 mg PO BID citalopram 40 MG tablet 40 mg PO DAILY albuterol sulfate 108 HFA aerosol inhaler 1 - 2 puff inhalation PRN PRN (Reason: Shortness Of Breath) budesonide-formoterol [Symbicort] 160-4.5 mcg/actuation HFA aerosol inhaler 1 puff INHALATION BID Label Comments: inhale 2 puffs by mouth twice daily Spiriva Respimat 2.5 mcg/actuation mist 1 puff INHALATION BID Label Comments: INHALE 2 PUFFS BY MOUTH EVERY DAY amoxicillin-pot clavulanate [Augmentin] 875-125 mg tablet 1 tab PO BID Qty: 12 0RF Stand Alone Forms: ED Work / School Excuse Primary Care Provider: [facility] Arleen Bass Referrals: [facility] Arleen Bass [Primary Care Provider] - 3-5 Days if not improving Disposition Disposition: Home, Self Care
== END 2022-01-30 14:35 | disposition home or self-care (01) ==
LOC: ED 14:33
PROVIDERS: Emergency Provider Emergency Medicine; Visit Provider Emergency Medicine
DX: B34.9 Viral infection, unspecified (principal); J44.9 Chronic obstructive pulmonary disease, unspecified; R51.9 Headache, unspecified; M79.10 Myalgia, unspecified site; G89.29 Other chronic pain; G47.30 Sleep apnea, unspecified; F32.A Depression, unspecified; F41.9 Anxiety disorder, unspecified; F17.210 Nicotine dependence, cigarettes, uncomplicated; Z99.81 Dependence on supplemental oxygen
CPT/HCPCS: 99282

== ENCOUNTER → 2022-02-20 | Outpatient (CLI) | payer OTHER, SELFPAY ==
--- NOTE | 2022-02-20 11:30 | US_ITS ---
ACR Level 3 findings have been noted. An addendum which confirms receipt of the report will follow. EXAM: US SOFT TISSUES OF THE NECK CLINICAL INDICATION: 1` PALPABLE LUMP ON MID INFERIOR JAW SUBLINGUAL AREA -- 4 PALPABLE LUMPS ON RIGHT NECK TECHNIQUE: Real-time ultrasound scan of the soft tissues of the neck with image documentation. This report was created using [employer] report generation technology. COMPARISON: CT September 10, 2020, unenhanced neck CT showing at least 3 well-circumscribed mildly hyperdense foci in the right parotid gland which were not mentioned on prior exam, and limited reactive-appearing enlarged lymph nodes. FINDINGS: SOFT TISSUES: Right parotid gland: 5.9 cm x 5.5 cm x 1.8 cm. Left parotid gland: 4 cm x 4.6 cm x 1.4 cm. Right submandibular gland or submandibular parotid component: 4.1 cm x 3.5 cm x 1.8 cm. PALPABLE and nonpalpable Masses: 1. 3 cm x 1.3 cm x 1.8 cm complex very hypoechoic sharply circumscribed lesion with some peripheral documented blood flow and low level stranding internal echoes in the right-midline submandibular region. There is increased through-transmission of sound. 2. 2.2 cm x 1.6 cm x 1.2 cm similar markedly hypoechoic minimally complex sharply marginated lesion in the region of palpable right submandibular region mass with slight low level echoes, some internal color flow, increased through transmission of sound. This is thought to be within right parotid-submandibular region. 3. Area of palpable lump in the superior right parotid measuring 2.6 cm x 2.9 cm x 1.4 cm with similar markedly hypoechoic appearance and low level echoes and sharply marginated periphery but obvious internal flow, appear to be internal vessels and at least a solid component. 4. Adjacent right parotid similar lesion measuring 2 cm x 2.4 cm x 1.8 cm, very hypoechoic, with some internal scattered flow and slight low-level echoes. 5. Simple-appearing 1.2 cm x 1.1 cm x 1 cm cyst medial to the larger lesion #4, thought to be in the right parotid. 6. 2 smaller hypoechoic lesions in the left neck, measuring 0.4 cm maximum transverse diameter each. Thought to be within or adjacent to left parotid gland. These have 6 mm x 2 mm and 5 mm x 3 mm components on orthogonal images. No foreign body. LYMPH NODES: Not clearly demonstrated. OTHER FINDINGS: US/Head/Neck Soft Tissue IMPRESSION: 1. Numerous indeterminate hypoechoic masses, apparently increased in size from prior CT September 10, 2020, there were one or 2 adjacent relatively large and 2 tiny adjacent scattered mildly hyperdense nodules or complex cysts in the right parotid gland on the prior exam. Consider follow-up enhanced CT or MRI. 2. Multiple lesions have internal blood flow on color Doppler exam, suggesting very hypodense solid masses. 3. The largest is 3.0 cm maximum diameter on the right, the largest lesion was noted to be 2.3 cm maximum diameter on the right on prior CT. Considerations include larger intraparenchymal lymph nodes and salivary neoplasm. Please correlate with exam and appropriate follow-up. 4. No typical abscess. Electronically Signed: Eve Britt MD at 0:42 EDT ,
== END | disposition home or self-care (01) ==
LOC: US 11:29
PROVIDERS: PCP Family Medicine; Referring Provider Family Medicine; Visit Provider Family Medicine
DX: R01.1 Cardiac murmur, unspecified (principal); R22.1 Localized swelling, mass and lump, neck
CPT/HCPCS: 76536

== ENCOUNTER → 2022-03-20 | Outpatient (CLI) | payer OTHER, SELFPAY ==
--- NOTE | 2022-03-20 | IMM_PTH ---
PATIENT: VINCENT FULTON Jr. LOC: LAB U#:[id number] AGE/SX: 57/M ROOM: RE03/20/[address]: Dr. Sarath Park MD : 1965 BED: DIS: 03/20/2022 SPEC #: [id number] RECD: 03/21/22 13:54 STATUS: GALILEO REQ #: [id number] MAHI: 03/20/22 00:[address]: Sarath Park DEPT: IMMUNOHISTOCHEMISTRY RECD BY: Rola Sawant ENTERED: 03/21/22 14:04 SP TYPE: IMMUNO OTHR DR: Dianelys Decker DO Tissues: A - Mandible, NOS Procedures: BCL-2 (add) BCL-6 (add) CD10 (add) CD138 (add) CD15 (add) CD20 (add) CD23 (add) CD3 (add) CD30 (add) CD43 (add) CD45 (add) CD5 (add) CD79A (add) CYCLIN (add) KAPPA (add) KI-67 (add) LAMBDA (add) MPO (add) P53 (add) Vimentin (add) MUM1 (add) C-MYC (add) Pankeratin (initial) PHYSICIAN & [place] [id number] SPECIMEN INFORMATION: Tissue Source: A ? Submental FNA Clinical Info: Right parotid and submental mass Specimen Number: [id number] CPT code: 44910, 01561 x22 METHODOLOGY: Deparaffinized sections of prefer/formalin-fixed tissue or PAP/DQ stained slides are incubated with monoclonal/polyclonal antibodies/oligonucleotide probes. Localization is made via biotin free immunoperoxidase method. Appropriate controls are performed and reacted as expected. Results on target cell population are indicated in the following table: RESULTS: ANTIBODY / CLONE RESULT Block A AE1-3 (AE1/AE3/PCK26) negative CD3 (PS1) negative CD5 (SP10) negative CD10 (56C6) negative CD15 (MMA) negative CD20 (L26) positive CD23 (1B12) positive CD30 (Brandon-H2) negative CD43 (L60) positive CD45 (RP2/18) positive CD79a (11E3) positive CD138 (B-A38) negative BCL-2 (bcl-2/100/D5) positive BCL-6 (AO570M/A8) negative Cyclin D1/BCL-1 (SP4) negative MUM1 (MRQ-43) negative C-MYC (Y69) negative MPO (polyclonal) negative [place] (polyclonal) negative Lambda (polyclonal) negative Vimentin (V9) negative P53 (DO-7) negative Ki-67 (30-9) positive, moderate These tests were developed and their performance characteristics determined by [facility]. They may not have been cleared or approved by the U.S. Food and Drug Administration. The FDA has determined that such clearance or approval is not necessary. The above immunohistochemical/dualISH markers are ordered and reviewed by the Pathologist. INTERPRETATION: A. Submental, fine needle aspiration: Consistent with B-cell lymphoproliferative disorder/lymphoma. See comment. AM:galo 03/22/2022 Comment: Biopsy is recommended for definitive classification. Case has been reviewed in consultation with Dr. Saldana who concurs with the above diagnosis. IDC:SJ
--- NOTE | 2022-03-20 | ASPOS_PTH ---
PATIENT: VINCENT FULTON Jr. LOC: [facility] U#:[id number] AGE/SX: 57/M ROOM: RE03/20/[address]: Dr. Sarath Park MD : 1965 BED: DIS: 03/20/2022 SPEC #: [id number] RECD: 03/20/22 12:36 STATUS: GALILEO REHemant #: [id number] MAHI: 03/20/22 00:[address]: Sarath Park DEPT: CYTOLOGY RECD BY: Ray Olivarez ENTERED: 03/20/22 12:37 SP TYPE: ASP HERE OTHR DR: Dianelys Decker DO Tissues: A - Mandible, NOS B - Parotid gland, NOS Procedures: Special Stain Group II Surgery Specimen Level IV Cytology Other Fine Needle Asp on Site HEADER OPERATION: Fine needle aspiration, right parotid and submental mass PRE-OP DIAGNOSIS: Right parotid and submental mass TISSUE SUBMITTED: A ? Submental FNA, B ? Right parotid FNA (flow) DIAGNOSIS CYTOLOGY A. Fine needle aspiration, submental mass (smears and cell block): Consistent with B-cell lymphoproliferative disorder/lymphoma. See comment. B. Fine needle aspiration, right parotid mass (smears and cell block): Consistent with B-cell lymphoproliferative disorder/lymphoma. See comment. AM:galo 03/22/2022 COMMENT The specimen is evaluated at the time of FNA by Dr. Rehman. Immediate Evaluation: A. Atypical lymphocytes suspicious for lymphoma. B. Atypical lymphocytes suspicious for lymphoma. A. Immunohistochemistry ([id number]) supports the above diagnosis. Aspirate material from right parotid mass for flow cytometry analysis did not reveal evidence of lymphoma. The complete report is viewable in patient?s EMR. Incisional/excisional biopsy is recommended for definitive classification. Case has been reviewed in consultation with Dr. Saldana who concurs with the above diagnosis. IDC:SJ CYTOLOGY STUDY Slides are reviewed. CYTOLOGY GROSS A - Received is 0.2 ml of reddish material labeled with the patient's name, and designated submental mass. Three imprints and one pap are made from the submitted fluid and the rest is added to CytoLyt for cell block preparation. Submitted for cytology study. B - Received is 0.2 ml of reddish material labeled with the patient's name, and designated right parotid mass. Three imprints and two paps are made from the submitted fluid and the rest is added to CytoLyt for cell block preparation. Submitted for cytology study. / AM:galo 03/20/2022 TC:0 CPT: 79135 x2, 82193 x2, 26673 x2, 26345 x2
== END | disposition home or self-care (01) ==
PROVIDERS: PCP Family Medicine; Referring Provider Otolaryngology; Visit Provider Otolaryngology
DX: R22.1 Localized swelling, mass and lump, neck (principal)
CPT/HCPCS: 10021; 88161; 88305; 88313; 88341; 88342

== ENCOUNTER 2022-05-23 12:32 | Day surgery (SDC) | payer OTHER, SELFPAY ==
--- NOTE | 2022-05-23 | IMM_PTH ---
PATIENT: VINCENT FULTON Jr. LOC: [facility] [place] U#:[id number] AGE/SX: 57/M ROOM: RE05/23/[address]: Dr. Sarath Park MD : 1965 BED: DIS: 05/23/2022 SPEC #: [id number] RECD: 05/25/22 13:33 STATUS: GALILEO REQ #: [id number] MAHI: 05/23/22 00:[address]: Sarath Park DEPT: IMMUNOHISTOCHEMISTRY RECD BY: Rola Sawant ENTERED: 05/25/22 13:35 SP TYPE: IMMUNO OTHR DR: Dianelys Decker DO Tissues: Neck, NOS Procedures: BCL-2 (add) BCL-6 (add) CD10 (add) CD20 (add) CD23 (add) CD3 (add) CD43 (add) CD45 (add) CD5 (add) CD79A (add) CK8 (add) CYCLIN (add) KI-67 (add) MUM1 (add) C-MYC (add) Pankeratin (initial) PHYSICIAN & [place] [id number] SPECIMEN INFORMATION: Tissue Source: Neck mass Clinical Info: Neck mass Specimen Number: [id number] CPT code: 22730, 60594 x15 METHODOLOGY: Deparaffinized sections of prefer/formalin-fixed tissue or PAP/DQ stained slides are incubated with monoclonal/polyclonal antibodies/oligonucleotide probes. Localization is made via biotin free immunoperoxidase method. Appropriate controls are performed and reacted as expected. Results on target cell population are indicated in the following table: RESULTS: ANTIBODY / CLONE RESULT AE1-3 (AE1/AE3/PCK26) negative CK8 (58hgsjT93) negative CD3 (PS1) negative CD5 (SP10) negative CD10 (56C6) positive CD20 (L26) positive CD23 (1B12) positive CD43 (L60) positive CD45 (RP2/18) positive CD79a (11E3) positive BCL-2 (bcl-2/100/D5) positive BCL-6 (PO882Q/A8) positive, weak Cyclin D1/BCL-1 (SP4) negative MUM1 (MRQ-43) negative C-MYC (Y69) negative Ki-67 (30-9) positive, high, ~90% These tests were developed and their performance characteristics determined by [facility]. They may not have been cleared or approved by the U.S. Food and Drug Administration. The FDA has determined that such clearance or approval is not necessary. The above immunohistochemical/dualISH markers are ordered and reviewed by the Pathologist. 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 SJ:galo 05/26/2022 Case has been reviewed in consultation with Dr. Rehman who concurs with the above diagnosis. IDC:AM
[2022-05-23 13:14] VITALS: BP 140/90; PULSE 71; RESP 16; TEMP 36.8; O2SAT 97; BMI 29.7
[2022-05-23] MEDS: Lactated Ringers 1,000 ML 15 ML IV (13:32)
--- NOTE | 2022-05-23 14:50 | LYMN_PTH ---
PATIENT: VINCENT FULTON Jr. LOC: [facility] [place] U#:[id number] AGE/SX: 57/M ROOM: RE05/23/[address]: Dr. 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 See microscopic description and comment. SJ:rg 05/29/2022 COMMENT The specimen is evaluated at the time of touch imprint by Dr. Saldana. Immediate Evaluation = Numerous lymphocytes are noted. Immunohistochemistry ([id number]) supports the above diagnosis. Flow cytometry study from [employer] shows B-cell lymphoma, CD5 negative/CD10 positive, favor high grade/large B-cell lymphoma. The complete flow report is viewable in patient?s EMR. Please make reference to previous specimen ([id number]) fine needle aspiration, submental mass and right parotid mass with diagnosis of ?consistent with B-cell lymphoproliferative disorder/lymphoma.? Case has been reviewed in consultation with Dr. Rehman who concurs with the above diagnosis. IDC:AM MICROSCOPIC DESCRIPTION Slides are reviewed. The specimen shows lymph node tissue with distortion of normal lymph node architecture into multiple atypical follicles. The follicles comprise immature atypical small and large cleaved lymphocytes. Atypical large lymphocytes comprise more than 15 per high power field. No evidence of necrosis. GROSS DESCRIPTION Received fresh in saline labeled with the patient's name is a specimen designated right neck mass. The specimen consists of a piece of khan-pink nodule measuring 3 x 2 x 1.5 cm. The specimen is serially sectioned and reveals khan, fleshy cut surfaces. Two touch imprints are prepared. A section is submitted for flow cytometry studies. The rest of the specimen is submitted in two cassettes. / SJ:galo 05/24/2022 TC: 0 CPT: 59814, 96786
--- NOTE | 2022-05-23 15:05 | DCINST_ITS ---
Discharge Instructions Diet Discharge Diet: No restrictions Activity Discharge Activity: Return to Normal Activity Dressing / Incision Call your doctor if your incision/area has: Increased Pain/ Swelling Additional Dressing/Incision Instructions:: keep incision dry until morning, then wash gently with soap/water and pat dry. starting sunday, mupirocin ointment twice daily to incision. Follow Up Care Please Follow Up With: Sarath Park MD When: 1 week Test Results: Test results from this visit will be discussed in further detail at your follow- up appointment, if applicable. Discharge Plan Admission Attending Provider: Sarath Park Primary Care Provider: Dianeyls Decker Discharge Orders/Prescriptions Prescriptions: No Action gabapentin 300 MG capsule 300 mg PO QHS Label Comments: TAKE 1 CAPSULE BY MOUTH THREE TIMES DAILY Ibuprofen [Motrin] 800 MG tablet 800 mg PO BID citalopram 40 MG tablet 20 mg PO DAILY albuterol sulfate 108 HFA aerosol inhaler 1 - 2 puff inhalation PRN PRN (Reason: Shortness Of Breath) budesonide-formoterol [Symbicort] 160-4.5 mcg/actuation HFA aerosol inhaler 1 puff INHALATION BID Label Comments: inhale 2 puffs by mouth twice daily Spiriva Respimat 2.5 mcg/actuation mist 1 puff INHALATION BID Label Comments: INHALE 2 PUFFS BY MOUTH EVERY DAY Referrals / Follow Up: Dianelys Decker DO [Primary Care Provider] - Disposition Disposition (needs filled in before D/C Order can be placed): Home, Self Care
--- NOTE | 2022-05-23 15:07 | OP.PCM_ITS ---
Problems Associated Problem List Diagnoses (1) Mass in neck: Report of Operation Date of Procedure: 05/23/22 Pre-Operative Diagnosis: neck mass Post-Operative Diagnosis: neck mass Surgery/Procedure Performed:: excision deep neck mass Surgeon: Sarath Park Type of Anesthesia: General Description of Procedure: on the day of the procedure, after appropriate informed consent was obtained, the patient was brought to the operating room and placed in supine position on the operating table. he was placed under anesthesia using a LMA. the tube was secured, the eyes were taped. the neck was injected with lidocaine/epinephrine and prepped/draped in sterile fashion. a 2cm submental incision was made in the midline over the mass. the platysma muscle was divided with a 15 blade and the dissection was taken deep with a metsenbaum scissor. the mass was circumferentailly dissected and removed with the scissor; hemostasis was achieve d with the bipolar. the incision was closed with 4-0 vicryl and 5-0 prolene. he was transferred to the PACU in stable condition.
[2022-05-23] MEDS: Lidocaine 2% /Epi 1:100 (20ml) 20 ML VIAL (16:11)
[2022-05-23] MEDS: Mupirocin Ointment 22gm Tube 1 APPLIC (16:30)
[2022-05-23 16:46] VITALS: BP 140/90; BP 153/86; PULSE 91; RESP 16; TEMP 36.7; O2SAT 95
[2022-05-23 17:00] VITALS: BP 130/77; BP 140/90; PULSE 81; RESP 16; O2SAT 93
[2022-05-23 17:15] VITALS: BP 119/78; BP 140/90; PULSE 76; RESP 16; O2SAT 94
[2022-05-23 17:26] VITALS: BP 122/78; BP 140/90; PULSE 70; RESP 18; TEMP 36.7; O2SAT 92
[2022-05-23] MEDS: HYDROcodone Bitartrate/Apap 5/325 Tablet PO (17:48)
[2022-05-23 18:23] VITALS: BP 123/81; BP 140/90; PULSE 84; RESP 16; TEMP 37.1; O2SAT 91
== END 2022-05-23 18:27 | disposition home or self-care (01) ==
LOC: SDC 12:33 → AC 12:41
PROVIDERS: PCP Family Medicine; Referring Provider Otolaryngology; Visit Provider Otolaryngology
PROC: (CPT 21556; principal; 2022-05-23 14:35)
DX: R22.1 Localized swelling, mass and lump, neck (principal); J44.9 Chronic obstructive pulmonary disease, unspecified; G89.29 Other chronic pain; I10 Essential (primary) hypertension; G47.30 Sleep apnea, unspecified; Z79.899 Other long term (current) drug therapy
CPT/HCPCS: 21556; 00300; 88305; 88313; 88341; 88342; J7120; J2405

== ENCOUNTER 2022-09-06 15:11 | Inpatient (IN) | payer BC, SELFPAY ==
[2022-09-06 15:11] VITALS: BP 151/81; PULSE 119; RESP 18; TEMP 36; O2SAT 99
[2022-09-06 15:13] VITALS: BP 151/81; PULSE 119; RESP 18; TEMP 36; O2SAT 99; BMI 29.7
--- NOTE | 2022-09-06 15:50 | EDS_ITS ---
HPI History of Present Illness Chief Complaint: Wound Check Detail of Chief Complaint: Right foot infection Informant: patient Narrative Narrative: Patient presents secondary to right foot infection. He states he had noted some intermittent swelling and a small lump between his fourth and fifth toes over the past month. Seem to resolve with elevation of his foot. For the past 4 days has had increased pain, swelling, and redness. He was seen by his primary care physician and started on Keflex. He states he took his last dose earlier today but due to no improvement was advised to come to the emergency room. He denies history of diabetes. He is currently on chemotherapy for lymphoma. He has had no fever or chills. PFSH PFSH Medical History Anxiety Asthma Back pain Cancer Chronic pain COPD (chronic obstructive pulmonary disease) Depression Easy bruising Excessive bleeding Gastric reflux Heart murmur Lymphoma On home oxygen therapy Restless legs Shortness of breath on exertion Sleep apnea Smoker Home Medications albuterol sulfate 90 mcg/actuation aerosol inhaler 1 - 2 puff inhalation PRN PRN Shortness Of Breath 08/17/18 [History Last Taken 09/05/22] budesonide-formoterol HFA 160 mcg-4.5 mcg/actuation aerosol inhaler (Symbicort) 1 puff inhalation BID copd 11/28/20 [History Last Taken 09/05/22] tiotropium bromide 2.5 mcg/actuation mist for inhalation (Spiriva Respimat) 1 puff inhalation BID copd 11/28/20 [History Last Taken 3 Weeks Ago ~08/16/22] apixaban 5 mg tablet (Eliquis) 5 mg PO BID blood thinner 09/06/22 [History Last Taken 09/06/22 12:00] cephalexin 500 mg capsule 500 mg PO Q6H antibiotic 09/06/22 [History Last Taken 09/06/22] citalopram 10 mg tablet 10 mg PO DAILY depression 09/06/22 [History Last Taken 09/06/22] ibuprofen 800 mg tablet 800 mg PO BID pain 09/06/22 [History Last Taken 09/06/22 12:00] lorazepam 1 mg tablet 1 mg PO DAILY PRN panic attacks 09/06/22 [History Last Elan en 09/02/22] Allergy/AdvReac Type Severity Reaction Status Date / Time No Known Allergies Allergy Verified 09/06/22 15:13 Family History Mother Breast cancer Father Heart disease Surgical History History of appendectomy Social History Smoking Status: Current every day smoker tobacco type: cigarettes ROS ROS ED Constitutional Constitutional ED: Denies chills or fever(s) Eyes Eyes: Denies change in vision or discharge from eye(s) ENT ENT ED: Denies discharge from eye(s), rhinorrhea or sore throat Cardiovascular Cardiovascular: Denies chest pain or palpitations Respiratory/Chest Respiratory/Chest: Denies cough or dyspnea Gastrointestinal Gastrointestinal: Denies abdominal pain, diarrhea, nausea or vomiting Genitourinary Genitourinary ED: Denies dysuria Musculoskeletal Musculoskeletal: Reports extremity pain; Denies back pain Integumentary Reports rash and other; Denies Abrasions Neurologic Neurologic: Denies headache(s) or weakness Psychiatric Psychiatric: Denies anxiety or depression Allergic/Immunologic Allergic/Immunologic ED: Denies lip swelling or urticaria EXAM Physical Exam Const Vital Signs: 09/06/22 15:11 09/06/22 15:13 Temperature 96.8 F L 96.8 F L Temperature Source Temporal Temporal Pulse Rate 119 H 119 H Respiratory Rate 18 18 Blood Pressure 151/81 H 151/81 H Blood Pressure Mean 104 104 Pulse Ox 99 99 Oxygen Delivery Method Room Air Room Air Positive well nourished and well developed General Appearance ED: well developed HEENT Reports moist mucous membranes Eyes EOMs intact bilaterally Chest Wall inspection of chest normal and palpation of chest normal Resp normal respiratory effort and clear to auscultation bilaterally Cardio regular rate and regular rhythm GI normal to inspection, nondistended, normoactive bowel sounds Extremity Extremity Narrative: Right foot is edematous. He has erythema around the base of the fourth and fifth toes. Neuro oriented x3 and no sensory deficits noted Motor Exam: strength 5/5 throughout Psych mental status grossly normal Skin Skin Narrative: Right foot edema and erythema as noted above. MDM MDM MDM Narrative Medical decision making narrative: Blood cultures were obtained. Labwork obtained to evaluate for leukocytosis, anemia, and electrolyte derangement. Right foot x-ray obtained to evaluate for bony destruction. Patient given Zosyn and vancomycin. Lab Data Attestation: I reviewed the patient's lab results. Labs: Laboratory Results - last 24 hr 09/06/22 09/06/22 09/06/22 15:37 15:37 15:37 WBC 7.1 RBC 3.75 L Hgb 12.5 L Hct 38.2 L MCV 101.9 H MCH 33.3 H MCHC 32.7 RDW Std Deviation 53.1 H RDW Coeff of Acacia 14.6 Plt Count 217 MPV 9.9 Neut % (Auto) Not Reportable Total Counted 100 Neutrophils % (Manual) 45 L Band Neutrophils % 9 H Lymphocytes % (Manual) 21 Monocytes % (Manual) 8 Eosinophils % (Manual) 3 Basophils % (Manual) 4 H Metamyelocytes % 4 H Myelocytes % 6 H Sodium 139 Potassium 3.8 Chloride 106 Carbon Dioxide 29.0 Anion Gap 4 L BUN 10 Creatinine 0.82 Estim Creat Clear Calc 109.09 Est GFR (MDRD) Af Amer 125 Est GFR (MDRD) Non-Af 104 BUN/Creatinine Ratio 12.3 Glucose 126 H Lactic Acid 1.2 Calcium 8.6 Radiography Diagnostic Testing: Clinical Impression(s) from Imaging Studies Foot X-Ray 09/06/22 16:05 IMPRESSION: Soft tissue swelling of the foot. Electronically Signed: Charlie Sabillon MD at 16:22 EDT Reading Location ID and State: [facility] / [place] , Service support , Treatment and Re-Evaluation :: CBC was normal white count at 7.1. Hemoglobin is 12.5. Chemistry studies unremarkable. His glucose is 126. Lactic acid is normal at 1.2. Right foot x- rays per my interpretation reveal no obvious bony destruction. Radiology interpretation is reviewed and agrees. Patient has obvious pain and swelling with infection to the right foot. He has failed outpatient antibiotics. I will speak with hospitalist regarding admission for IV antibiotics and probable MRI to rule out osteomyelitis. Discharge Plan Dx/Rx/DC Orders Clinical Impression: Infection of right foot Disposition Disposition: Acute Care [facility]
[2022-09-06 15:59] LABS: Hematocrit 38.2 % (40-54); Hemoglobin 12.5 g/dL (13.0-16.5); Mean Corp Hgb Conc 32.7 g/dL (32-36); Mean Corpuscular Hgb 33.3 pg (27.0-32.0); Mean Corpuscular Volume 101.9 fL (80-94); Mean Platelet Vol. 9.9 fl (6.2-12.0); POSITIVE COUNT YES; POSITIVE MORPHOLOGY YES; Platelet Count 217 K/mm3 (150-450); RBC Distribution Width CV 14.6 % (11.6-14.6); RBC Distribution Width SD 53.1 fl (35.1-43.9); Red Blood Count 3.75 M/mm3 (4.6-6.2); White Blood Count 7.1 K/mm3 (4.4-11.0)
--- NOTE | 2022-09-06 16:05 | RAD_ITS ---
EXAM: XR RIGHT FOOT COMPLETE, 3 OR MORE VIEWS CLINICAL INDICATION: infection TECHNIQUE: Frontal, lateral and oblique views of the right foot. This report was created using [email or web address] report generation technology. COMPARISON: None. FINDINGS: BONES/JOINTS: Unremarkable. No acute fracture. No subluxation. Normal alignment. Preservation of the joint space. No sclerotic or destructive changes observed. SOFT TISSUES: Soft tissue swelling of the foot. No radiopaque foreign body. RAD/Foot min 3 Views IMPRESSION: Soft tissue swelling of the foot. Electronically Signed: Charlie Sabillon MD at 16:22 EDT ,
[2022-09-06 16:17] LABS: Differential Indicated MANUAL DIFF
[2022-09-06 16:18] LABS: Anion Gap 4 (5-15); BUN 10 mg/dL (7-18); BUN/Creat Ratio 12.3 RATIO (10-20); Calcium,Total 8.6 mg/dL (8.5-10.1); Chloride 106 mmol/L (98-107); Creatinine, Serum 0.82 mg/dL (0.70-1.30); EST Glomerular Filtration Rate 104 mL/min (>60); Est Glom Filt Rate - Afr Amer 125 mL/min (>60); Estimated Creatinine Clearance 109.09 ml/min; Glucose 126 mg/dL (74-106); Potassium 3.8 mmol/L (3.5-5.1); Sodium Level 139 mmol/L (136-145)
[2022-09-06 16:22] LABS: Lactic Acid 1.2 mmol/L (0.4-1.9)
--- NOTE | 2022-09-06 16:30 | NURSING ---
DR MAGANA FOR DR GUTHRIE
[2022-09-06 16:31] VITALS: BP 146/89; PULSE 105; RESP 18; TEMP 36.6; O2SAT 95
[2022-09-06 16:40] LABS: Lymphocyte 21 % (19-41); Metamyelocyte 4 % (0-1); Monocyte 8 % (0-10); Neutrophil-Segmented 45 % (47-70); Total Cells Counted 100 (MANUAL DIFF)
--- NOTE | 2022-09-06 16:45 | NURSING ---
MED SURG TERRYANN RT FOOT INFECTION
--- NOTE | 2022-09-06 16:45 | NURSING ---
MSED2
[2022-09-06 16:50] LABS: Myelocyte 8 % (0-0); Promyelocyte 2 % (0-0)
[2022-09-06 16:51] LABS: Basophil 2 % (0-1)
[2022-09-06 16:53] LABS: Eosinophil 1 % (0-5); Neutrophil-Band 9 % (0-5)
[2022-09-06 16:56] LABS: Absolute Lymphocyte Count 1.48 X10^3/uL (0.83-4.51); Absolute Neutrophil Count 3.8 X10^3/uL (2.0-7.7); Atypical Lymphocyte RARE %
[2022-09-06 16:57] LABS: Anisocytosis 1+; Macrocytosis 1+; Platelet Estimate ADEQUATE (ADEQ); Red Cell Morphology N CHROM NORMAL (NORM C&C); Toxic Granulation RARE
--- NOTE | 2022-09-06 18:10 | PCM.RX.CS ---
Consult Pharmacy has been consulted to manage selected antiobiotic: Vancomycin Type of Consult: New start Prior Doses of Antibiotics Received/Current Regimen: Medications Discontinued Medications Vancomycin HCl 2,000 mg/ (Sodium Chloride) 540 mls @ 250 mls/hr IV X1 ONE Stop: 09/06/22 18:00 Last Admin: 09/06/22 17:02 Dose: 250 mls/hr Labs: Sodium 139 mmol/L (136-145) 09/06/22 15:37 Potassium 3.8 mmol/L (3.5-5.1) 09/06/22 15:37 Chloride 106 mmol/L (98-107) 09/06/22 15:37 Carbon Dioxide 29.0 mmol/L (21.0-32.0) 09/06/22 15:37 Anion Gap 4 (5-15) L 09/06/22 15:37 BUN 10 mg/dL (7-18) 09/06/22 15:37 Creatinine 0.82 mg/dL (0.70-1.30) 09/06/22 15:37 Est GFR (MDRD) Af Amer 125 mL/min (>60) 09/06/22 15:37 Est GFR (MDRD) Non-Af 104 mL/min (>60) 09/06/22 15:37 BUN/Creatinine Ratio 12.3 RATIO (10-20) 09/06/22 15:37 Glucose 126 mg/dL (74-106) H 09/06/22 15:37 Weight used for dosin kg Estimated Creatinine Clearance: 109 Goal Trough: 10-15 mcg/mL Pharmacy Plan for Drug Dosinmg given IV x1, 1500mg IV q12h with trough prior to 4th dose per policy. Pharmacy Service will continue to monitor and adjust dosing as required. Follow-Up Labs: Trough Vancomycin - 09/08 @ 4183
[2022-09-06] MEDS: oxyCODONE 5 MG Tablet 10 MG PO ×2 (18:39→23:48)
--- NOTE | 2022-09-06 19:27 | NURSING ---
pt at mri
--- NOTE | 2022-09-06 19:35 | MRI_ITS ---
STUDY: MR Forefoot W/O Contrast 09/06/2022 8:48 PM REASON FOR EXAM: Male, 57 years old. Other, Rt foot infection. Swelling and lump between base of 4th and 5th toes x 1 month. increasing redness, swelling x last 4 days. Not diabetic. On chemotherapy for lymphoma currently. right foot cellulitis -- no contrast TECHNIQUE: Standardized fat and water weighted pulse sequences were obtained in all 3 orthogonal planes. COMPARISON: XR Foot 09/06/22 . FINDINGS: Normal talus, calcaneus, and tarsal bones. Normal visualized subtalar, talonavicular, calcaneocuboid, tarsal and tarsometatarsal articulations. Normal metatarsi. Normal metatarsophalangeal joint of the great toe. Normal tibial and fibular sesamoid bones. Normal interphalangeal joint of the great toe. Normal phalanges of the great toe. Normal second through fifth metatarsophalangeal joints. Normal interphalangeal joints and phalanges of the lesser toes. There is non-specific soft tissue swelling of the dorsum of the foot. This suggests a cellulitis. There is a 10mm fluid collection lateral to the 4th metatarsophalangeal joint. 10 mm fluid collection in the plantar aspect of the fifth distal interphalangeal joint. This may represent an abscess. MRI/Lower Ext/No Jt/w/o IMPRESSION: There is non-specific soft tissue swelling of the dorsum of the foot. This suggests a cellulitis. There is a 10mm fluid collection lateral to the 4th metatarsophalangeal joint. 10 mm fluid collection in the plantar aspect of the fifth distal interphalangeal joint. This may represent an abscess. No evidence for osteomyelitis. Electronically Signed: Charlie Sabillon MD at 20:54 EDT ,
--- NOTE | 2022-09-06 20:10 | PCM.HP.STD ---
HPI - General General Date of Admission: 09/06/22 Date of Service: 09/06/22 Chief Complaint: Right foot pain HPI Narrative VINCENT FULTON, is a 57 M who presents to the emergency room at [facility] for evaluation of right foot pain, he is complaining of pain over the areas of his proximal third fourth and fifth toes on his right foot, he denies any trauma to the area, he states that it has been hurting him severely since Sunday of this week. Patient states that he had some similar foot pain approximately a month ago and it resolved on its own without treatment. Patient was seen this Sunday by his PCP and placed on 3 days of Keflex- he completed his last dose today. Patient's current medical problems include chronic obstructive pulmonary disease and follicular lymphoma for which she is receiving chemotherapy presently. Evaluation in the emergency room included x-rays of the right foot which did not show any abnormality except for soft tissue swelling in the foot, patient's white blood cell count was 7.1 and hemoglobin was 12.5. Chemistry panel was unremarkable. Patient was given IV antibiotics the emergency room, he will be admitted to [place] [address] for cellulitis of the right foot, MRI of the right foot will be obtained [facility] and he will be seen by podiatry. Talked with oncology [facility] by phone (Dr. Cueto), he stated the patient was on Eliquis for a port associated thrombus, he said that the patient could come off Eliquis. I stopped it. PFSH Medical History Anxiety Asthma Back pain Cancer Chronic pain COPD (chronic obstructive pulmonary disease) Depression Easy bruising Excessive bleeding Gastric reflux Heart murmur Lymphoma Meningitis On home oxygen therapy Restless legs Shortness of breath on exertion Sleep apnea Smoker Home Medications albuterol sulfate 90 mcg/actuation aerosol inhaler 1 - 2 puff inhalation DAILY PRN SHORTNESS OF BREATH 08/17/18 [History Last Taken 09/05/22] budesonide-formoterol HFA 160 mcg-4.5 mcg/actuation aerosol inhaler (Symbicort) 1 puff inhalation BID copd 11/28/20 [History Last Taken 09/05/22] tiotropium bromide 2.5 mcg/actuation mist for inhalation (Spiriva Respimat) 1 puff inhalation BID copd 11/28/20 [History Last Taken 3 Weeks Ago ~08/16/22] apixaban 5 mg tablet (Eliquis) 5 mg PO BID BLOOD THINNER 09/06/22 [History Last Taken 09/06/22 12:00] cephalexin 500 mg capsule 500 mg PO Q6H ANTIBIOTIC 09/06/22 [History Last Taken 09/06/22] citalopram 10 mg tablet 10 mg PO DAILY depression 09/06/22 [History Last Taken 09/06/22] ibuprofen 800 mg tablet 800 mg PO BID pain 09/06/22 [History Last Taken 09/06/22 12:00] lorazepam 1 mg tablet 1 mg PO DAILY PRN panic attacks 09/06/22 [History Last Taken 09/02/22] Allergy/AdvReac Type Severity Reaction Status Date / Time No Known Allergies Allergy Verified 09/06/22 15:13 Family History Mother Breast cancer Father Heart disease Surgical History History of appendectomy Social History Smoking Status: Current every day smoker tobacco type: cigarettes ROS Constitutional Constitutional: Denies anorexia, change in weight, chills, fatigue, fever(s), malaise, night sweats or weakness Eyes Eyes: Denies blurry vision, change in vision, discharge from eye(s) or eye pain Cardiovascular Cardiovascular: Denies chest pain, claudication, edema or palpitations Respiratory/Chest Respiratory/Chest: Reports cough, dyspnea, shortness of breath with exertion and wheezing; Denies hemoptysis or shortness of breath at rest Gastrointestinal Gastrointestinal: Denies abdominal pain, constipation, diarrhea, hematemesis, hematochezia, melena, nausea or vomiting Genitourinary Genitourinary: Denies dysuria, hematuria, urinary frequency, urinary hesitancy, urinary incontinence or urinary urgency Musculoskeletal Musculoskeletal: Reports joint pain and other Details: Right foot pain with swelling and tenderness over the third fourth and fifth proximal toe areas ; Denies back pain, joint stiffness, joint swelling, myalgias or neck pain Neurologic Neurologic: Denies abnormal gait, abnormal speech, dizziness, focal weakness, headache(s), loss of vision, numbness, other visual disturbances, paresthesias, syncope or tingling Psychiatric Psychiatric: Reports anxiety; Denies cognitive impairment, depression, irritability, mood swings or suicidal ideation Endocrine Endocrinology: Denies change in body appearance, cold intolerance, excessive sweating, heat intolerance, polydipsia or polyuria Hematologic/Lymphatic Hematologic/Lymphatic: Denies none, anemia, easy bleeding, easy bruising or lymphadenopathy Allergic/Immunologic Allergic/Immunologic: Denies rhinitis, urticaria, eczemia or asthma Vital Signs Vital Signs Vital Signs: 09/06/22 15:11 09/06/22 15:13 09/06/22 16:31 Temperature 96.8 F L 96.8 F L 97.9 F Temperature Source Temporal Temporal Temporal Pulse Rate 119 H 119 H 105 H Respiratory Rate 18 18 18 Blood Pressure 151/81 H 151/81 H 146/89 H Blood Pressure Mean 104 104 108 Pulse Ox 99 99 95 Oxygen Delivery Method Room Air Room Air Room Air Weight Weight: 99.6 kg Body Mass Index (BMI) 29.7 Physical Exam Const alert, oriented x3, no apparent distress, average body habitus and healthy appearing General Appearance: cooperative, well kempt and well developed Orientation / Consciousness: awake, oriented to person, oriented to place and oriented to time HEENT normocephalic, head/scalp atraumatic, hearing grossly normal bilaterally and moist oral mucous membranes Eyes PERRL, EOMs intact bilaterally and conjunctivae normal Neck supple, no JVD, thyroid normal and no carotid bruits General: trachea midline Resp normal respiratory effort, no retractions and no use of accessory muscles Resp Narrative: Patient has scattered expiratory wheezes bilaterally Auscultation: wheezes throughout; Negative for rales or rhonchi Cardio regular rate, regular rhythm, S1 normal heart sound, S2 normal heart sound, no murmurs, no rub and no gallops GI normal to inspection, nondistended, normoactive bowel sounds, soft to palpation, non-tender and non-distended Extremity Extremity Narrative: There is noted to be an ecchymotic area proximal to the third fourth and fifth toes on the right foot along with swelling and extreme tenderness in the area. Skin Skin Narrative: There is ecchymosis noted over the dorsum of the right foot near the base of the third fourth and fifth toes General Skin Exam: no breakdown Neuro oriented x3, CN's II-XII intact bilaterally, no focal motor deficits and no sensory deficits noted Sensorium / Orientation: awake, alert, oriented to person, oriented to place and oriented to time Speech: speech normal Psych affect normal Results Lab / Micro Data Result Diagrams: 09/06/22 15:37 09/06/22 15:37 Labs: Laboratory Results - last 24 hr 09/06/22 15:37: WBC 7.1, RBC 3.75 L, Hgb 12.5 L, Hct 38.2 L, MCV 101.9 H, MCH 33.3 H, MCHC 32.7, RDW Std Deviation 53.1 H, RDW Coeff of Acacia 14.6, Plt Count 217, MPV 9.9, Neut % (Auto) Not Reportable, Absolute Neuts (auto) 3.8, Absolute Lymphs (auto) 1.48, Total Counted 100, Neutrophils % (Manual) 45 L, Band Neutrophils % 9 H, Lymphocytes % (Manual) 21, Monocytes % (Manual) 8, Eosinophils % (Manual) 1, Basophils % (Manual) 2 H, Metamyelocytes % 4 H, Myelocytes % 8 H, Promyelocytes % 2 H, Diff Path Review May foll, Atypical Lymphocytes RARE, Toxic Granulation RARE, Platelet Estimate ADEQUATE, RBC Morphology N CHROM, Anisocytosis 1+, Macrocytosis 1+ 09/06/22 15:37: Sodium 139, Potassium 3.8, Chloride 106, Carbon Dioxide 29.0, Anion Gap 4 L, BUN 10, Creatinine 0.82, Estim Creat Clear Calc 109.09, Est GFR (MDRD) Af Amer 125, Est GFR (MDRD) Non-Af 104, BUN/Creatinine Ratio 12.3, Glucose 126 H, Calcium 8.6 09/06/22 15:37: Lactic Acid 1.2 Radiology Impression Foot X-Ray 09/06/22 16:05 IMPRESSION: Soft tissue swelling of the foot. Electronically Signed: Charlie Sabillon MD at 16:22 EDT , Assessment & Plan Assessment/Plan (1) Infection of right foot: PLAN: Plan 1. Possible cellulitis of the right foot-patient will be admitted to [facility], he will be placed on IV vancomycin and Zosyn, podiatry will see the patient tomorrow, he will have an MRI of his right foot done tonight. It is possible that what I am observing on the patient's right foot is actually hematoma area-patient is on Eliquis, after his MRI we will be able to delineate what is going on in the right foot. #2 chronic obstructive pulmonary disease-patient is on inhalers at home, I will put him on a DuoNeb inhaler and write for his Symbicort inhaler he uses at home. #3 follicular lymphoma-patient is currently undergoing chemotherapy as an outpatient #4 chronic anxiety-patient is on Celexa and Ativan, these will be continued here Total clinical time spent by myself addressing the patient's medical issues, reviewing all of the data, and collaborating with patient's care team: 75 minutes Charges/Coding Visit Charges Inpatient E&M: 73212 Init Hosp L3
[2022-09-06] MEDS: Ipratropium/Albuterol Sulfate 3 ML AMPUL.NEB INHALATION (20:56)
[2022-09-06] MEDS: Budesonide Respules 0.5 MG/2 ML AMPUL.NEB. INHALATION (20:57)
[2022-09-06 20:58] VITALS: PULSE 87; RESP 16
[2022-09-06 21:36] VITALS: BP 121/75; PULSE 99; RESP 20; TEMP 37.1; O2SAT 95
[2022-09-06 21:48] VITALS: BMI 29.9
[2022-09-07] VITALS (12 sets, daily range): BP systolic 110–142; BP diastolic 62–80; PULSE 83–100; RESP 15–20; TEMP 36.6–36.9; O2SAT 93–97; BMI 29.9
[2022-09-07] MEDS: oxyCODONE 5 MG Tablet 10 MG PO ×3 (03:45→19:53)
[2022-09-07] MEDS: Albuterol 2.5 MG/3 ML VIAL.NEB. INHALATION (04:06)
[2022-09-07 06:38] LABS: Hematocrit 34.1 % (40-54); Hemoglobin 11.1 g/dL (13.0-16.5); Mean Corp Hgb Conc 32.6 g/dL (32-36); Mean Corpuscular Hgb 33.3 pg (27.0-32.0); Mean Corpuscular Volume 102.4 fL (80-94); Mean Platelet Vol. 9.7 fl (6.2-12.0); POSITIVE COUNT YES; POSITIVE MORPHOLOGY YES; Platelet Count 192 K/mm3 (150-450); RBC Distribution Width CV 14.7 % (11.6-14.6); RBC Distribution Width SD 53.7 fl (35.1-43.9); Red Blood Count 3.33 M/mm3 (4.6-6.2); White Blood Count 9.5 K/mm3 (4.4-11.0)
[2022-09-07 06:53] LABS: Differential Indicated MANUAL DIFF
[2022-09-07 07:05] LABS: Total Cells Counted 100 (MANUAL DIFF)
[2022-09-07 07:06] LABS: Lymphocyte 9 % (19-41); Metamyelocyte 4 % (0-1); Monocyte 11 % (0-10); Myelocyte 3 % (0-0); Neutrophil-Band 8 % (0-5); Neutrophil-Segmented 65 % (47-70); Platelet Estimate ADEQUATE (ADEQ); Red Cell Morphology NORM C+C NORMAL (NORM C&C)
[2022-09-07 07:09] LABS: Absolute Lymphocyte Count 0.85 X10^3/uL (0.83-4.51); Absolute Neutrophil Count 6.9 X10^3/uL (2.0-7.7); Lymphocyte # 0.85 X10^3/ul (0.83-4.51); Neutrophil # 6.91 X10^3/uL (2.7-7.7)
[2022-09-07] MEDS: Ipratropium/Albuterol Sulfate 3 ML AMPUL.NEB INHALATION ×3 (07:40→22:10)
[2022-09-07] MEDS: Budesonide Respules 0.5 MG/2 ML AMPUL.NEB. INHALATION ×2 (07:40→19:35)
[2022-09-07] MEDS: Citalopram 10 MG Tablet PO (08:44)
--- NOTE | 2022-09-07 10:36 | WOUNDNOTE ---
wound photo: right foot
--- NOTE | 2022-09-07 10:37 | WOUNDNOTE ---
wound photo: right foot
[2022-09-07] MEDS: LORazepam 1 MG Tablet PO (10:41)
[2022-09-07] MEDS: 0.9% Saline Lock 10 ML Syringe IV ×3 (10:42→12:47)
[2022-09-07] MEDS: Morphine 4 MG/ML Syringe IV (10:42)
[2022-09-07] MEDS: Ibuprofen 400 MG Tablet 800 MG PO ×2 (11:39→19:54)
[2022-09-07] MEDS: HYDROmorphone 1 MG/ML Syringe IV ×2 (12:32→12:59)
[2022-09-07] MEDS: Lidocaine 2% (20 ml mdv) 20 ML Vial INFILT (12:37)
[2022-09-07] MEDS: LORazepam 2 MG/ML Syringe IV (12:47)
--- NOTE | 2022-09-07 13:07 | CON.PCM_ITS ---
Assessment & Plan Assessment/Plan (1) Non-pressure chronic ulcer of other part of right foot with fat layer exposed: PLAN: Exam performed Radiographs negative MRI confirmed abscess right 4th interspace After obtaining oral consent, right 4th/5th digital blocks performed. Right 4th/5th toe and 4th interspace prepped with betadine paint. Extending through existing 4th interspace this was opened using sterile hemostats. Significant p urulent drainage evacuated from site until normal healthy bleeding noted. Swab cultures taken Significnt improvement in edema note. Site flushed with copious normal sterile saline then dressed with sterile packing, betadine 4x4s, kerlix and jose recommend heel weightbearing in surgical shoes will consult ID for assistance with abx management (2) Abscess of right foot including toes: (3) Cellulitis and abscess of foot: HPI Consult Data Date of Consult: 09/07/22 HPI Narrative HPI Narrative: VINCENT FULTON, is a 57 M who presents with a right foot abscess, redness and swelling for the past week. Patient was admitted overnight. Patient noted se hartman his PCP who placed him on PO keflex for 3 days, but this ultimately did not resolve the issues. The pain and swelling worsened until he ultimately present to the ED. Patient has a past medical history of lymphoma and is currently on chemotherapy. No history of diabetes. no other complaints. PFSH Medical History Anxiety Asthma Back pain Cancer Chronic pain COPD (chronic obstructive pulmonary disease) Depression Easy bruising Excessive bleeding Gastric reflux Heart murmur Lymphoma Meningitis On home oxygen therapy Restless legs Shortness of breath on exertion Sleep apnea Smoker Home Medications albuterol sulfate 90 mcg/actuation aerosol inhaler 1 - 2 puff inhalation DAILY PRN SHORTNESS OF BREATH 08/17/18 [History Last Taken 09/05/22] budesonide-formoterol HFA 160 mcg-4.5 mcg/actuation aerosol inhaler (Symbicort) 1 puff inhalation BID copd 11/28/20 [History Last Taken 09/05/22] tiotropium bromide 2.5 mcg/actuation mist for inhalation (Spiriva Respimat) 1 puff inhalation BID copd 11/28/20 [History Last Taken 3 Weeks Ago ~08/16/22] apixaban 5 mg tablet (Eliquis) 5 mg PO BID BLOOD THINNER 09/06/22 [History Last Taken 09/06/22 12:00] cephalexin 500 mg capsule 500 mg PO Q6H ANTIBIOTIC 09/06/22 [History Last Taken 09/06/22] citalopram 10 mg tablet 10 mg PO DAILY depression 09/06/22 [History Last Taken 09/06/22] ibuprofen 800 mg tablet 800 mg PO BID pain 09/06/22 [History Last Taken 09/06/22 12:00] lorazepam 1 mg tablet 1 mg PO DAILY PRN panic attacks 09/06/22 [History Last Taken 09/02/22] Allergy/AdvReac Type Severity Reaction Status Date / Time No Known Allergies Allergy Verified 09/06/22 15:13 Family History Mother Breast cancer Father Heart disease Surgical History History of appendectomy Social History Smoking Status: Current every day smoker tobacco type: cigarettes ROS Constitutional Constitutional: Denies daytime sleepiness, increased appetite or weight gain Eyes Eyes: Denies blind spots, decreased night vision or excessive blinking ENT HEENT: Denies change in voice, facial pain or mouth lesions Cardiovascular Cardiovascular: Denies abdominal edema, chest pain at rest or dyspnea at rest Respiratory/Chest Respiratory/Chest: Denies change in phlegm color, dyspnea on exertion or mouth breathing Physical Exam Narrative neurovacular status intact to bilateral feet fissure noted to 4th interspace with diffuse swelling, edema, erythema and warmth. Purulent drainage 3-4cc noted upon expression of periwound area. Adductovarus right 5th toe. Const alert and oriented x3 Lab / Micro Data Result Diagrams: 09/07/22 06:20 09/06/22 15:37 Labs: Laboratory Results - last 24 hr 09/06/22 15:37: WBC 7.1, RBC 3.75 L, Hgb 12.5 L, Hct 38.2 L, MCV 101.9 H, MCH 33.3 H, MCHC 32.7, RDW Std Deviation 53.1 H, RDW Coeff of Acacia 14.6, Plt Count 217, MPV 9.9, Neut % (Auto) Not Reportable, Absolute Neuts (auto) 3.8, Absolute Lymphs (auto) 1.48, Total Counted 100, Neutrophils % (Manual) 45 L, Band Neutrophils % 9 H, Lymphocytes % (Manual) 21, Monocytes % (Manual) 8, Eosinophils % (Manual) 1, Basophils % (Manual) 2 H, Metamyelocytes % 4 H, Myelocytes % 8 H, Promyelocytes % 2 H, Diff Path Review May foll, Atypical Lymphocytes RARE, Toxic Granulation RARE, Platelet Estimate ADEQUATE, RBC Morphology N CHROM, Anisocytosis 1+, Macrocytosis 1+ 09/06/22 15:37: Sodium 139, Potassium 3.8, Chloride 106, Carbon Dioxide 29.0, Anion Gap 4 L, BUN 10, Creatinine 0.82, Estim Creat Clear Calc 109.09, Est GFR (MDRD) Af Amer 125, Est GFR (MDRD) Non-Af 104, BUN/Creatinine Ratio 12.3, Glucose 126 H, Calcium 8.6 09/06/22 15:37: Lactic Acid 1.2 09/07/22 06:20: WBC 9.5, RBC 3.33 L, Hgb 11.1 L, Hct 34.1 L, MCV 102.4 H, MCH 33.3 H, MCHC 32.6, RDW Std Deviation 53.7 H, RDW Coeff of Acacia 14.7 H, Plt Count 192, MPV 9.7, Neut % (Auto) Not Reportable, Absolute Neuts (auto) 6.9, Absolute Lymphs (auto) 0.85, Total Counted 100, Neutrophils % (Manual) 65, Band Neutrophils % 8 H, Lymphocytes % (Manual) 9 L, Monocytes % (Manual) 11 H, Metamyelocytes % 4 H, Myelocytes % 3 H, Diff Path Review May foll, Platelet Estimate ADEQUATE, RBC Morphology NORM C+C Radiology Impression Foot X-Ray 09/06/22 16:05 IMPRESSION: Soft tissue swelling of the foot. Electronically Signed: Charlie Sabillon MD at 16:22 EDT , Lower Extremity MRI 09/06/22 19:35 IMPRESSION: There is non-specific soft tissue swelling of the dorsum of the foot. This suggests a cellulitis. There is a 10mm fluid collection lateral to the 4th metatarsophalangeal joint. 10 mm fluid collection in the plantar aspect of the fifth distal interphalangeal joint. This may represent an abscess. No evidence for osteomyelitis. Electronically Signed: Charlie Sabillon MD at 20:54 EDT ,
--- NOTE | 2022-09-07 13:20 | NURSING ---
on bedside table, pt with red bag labeled Kratom and also a rounded plastic container with labeling of Kratom. pt states he uses the bag a powder that i put in my coffee and also in my monster drink. i have used it for six years. inquired about round plastic container- pt states those are capsules and i used them all day long. states he took about 20 capsules of the Kratom around 10:30 pt drowsy, but easily awakens to voice and appropriate in his conversation. pt agreeable to have his belongings put over in his room locker including both substances listed above. spo2 applied and is currently 95% on room air. Will notify charge nurse and md.
--- NOTE | 2022-09-07 15:20 | CASEMGMT ---
RN?CM?MANAGER ETL?CM?to room to meet with patient for initial transition planning/care coordination?assessment.?RN?CM?introduced self and role at [facility].? Pt voices understanding and consents to?assessment?at this time.? Pt resting in bed in no distress at this time.? Pt is A/O at this time and answers all questions appropriately.?? Care providers, pharmacy, and demographics verified/updated at this time. PCP: Charisse Decker Specialists: Dr Cueto-oncology Preferred Pharmacy: [facility] Retail Insurance: Okay Prescription Benefit:?Yes Living Will/HPOA:?Pt does not currently have LW/HCPOA and declines info at this time.? Pt made aware that he can contact as an out-pt and make appt in the future if he decides he would like to talk with someone about this or would like to utilize [facility] social work for advanced directive completion. LNOK: son, Herb. Mother, Jeanine Living Arrangements: Lives alone in 2-story home w/3 steps to enter. Denies difficulty w/stairs. Independent. Works full-time Transportation:?Pt states drives self and states no transportation concerns at this time.? DME: ?States has the following DME:?nebulizer. Pt has a PAP and oxygen he got through [email or web address], but does not wear either d/t not being able to tolerate the PAP. Call to Melodie @ [employer] who verifies oxygen order is for 2 L/M @ [facility] only. ?Pt states no need for further DME at this time.? HHC/SNF: No hx of either. Pt states, if dressing changes are needed, that his ex- is his neighbor and they have a good relationship still. He states she is an BLIND AIDE and would be willing to assist w/dressing changes. Pt wishes to return home and states has no concerns with going home at time of discharge.?CM?to follow for any discharge planning/needs.? Pt voices no further concerns/needs at this time.? Advised pt to ask for?CM?if any further questions/concerns/needs arise.? Voices understanding. PLAN:??Home. Follow for dressing changes, possible IV atb's/HHC. Anette BSN?RN?CM
[2022-09-07 16:29] LABS: M R Staph aureus DNA By PCR Negative (Negative); Probe Check PASS; Specimen Processing Control PASS; Staph aureus DNA By PCR NEGATIVE (Negative)
--- NOTE | 2022-09-07 18:12 | PCM.PN.HOSP ---
Reason for Visit Reason for Visit: Diagnoses Cutaneous abscess of right foot (09/06/22) Cutaneous abscess of unspecified foot (09/06/22) Cellulitis of unspecified part of limb (09/06/22) Local infection of the skin and subcutaneous tissue, unspecified (09/06/22) Non-pressure chronic ulcer of other part of right foot with fat layer exposed (09/06/22) Subjective Subjective Was seen and examined today, he still having quite a bit of pain in his right foot, he underwent an I&D of his right foot today by podiatry who removed purulent drainage. The drainage did not appear to be a hematoma. PCR was done on the fluid which was negative for staph. Objective Data Objective Data Vital Signs: Vital Signs Temp Pulse Resp BP Pulse Ox O2 Del Method 98.3 F 85 18 110/74 96 Room Air 09/07/22 14:20 09/07/22 17:19 09/07/22 14:20 09/07/22 14:20 09/07/22 17:19 09/07/22 17:19 Oxygen Delivery Method Room Air Weight: 100.1 kg Body Mass Index (BMI) 29.9 Intake & Output: Intake and Output for Last 24 Hours 09/05/22 09/06/22 09/07/22 23:59 23:59 23:59 Intake Total 590 / 590 1470.25 / 1470.25 Output Total 250 / 250 Balance 590 / 590 1220.25 / 1220.25 Lab / Micro Data Result Diagrams: 09/07/22 06:20 09/06/22 15:37 Labs: Laboratory Results - last 24 hr 09/07/22 06:20: WBC 9.5, RBC 3.33 L, Hgb 11.1 L, Hct 34.1 L, MCV 102.4 H, MCH 33.3 H, MCHC 32.6, RDW Std Deviation 53.7 H, RDW Coeff of Acacia 14.7 H, Plt Count 192, MPV 9.7, Neut % (Auto) Not Reportable, Absolute Neuts (auto) 6.9, Absolute Lymphs (auto) 0.85, Total Counted 100, Neutrophils % (Manual) 65, Band Neutrophils % 8 H, Lymphocytes % (Manual) 9 L, Monocytes % (Manual) 11 H, Metamyelocytes % 4 H, Myelocytes % 3 H, Diff Path Review May foll, Platelet Estimate ADEQUATE, RBC Morphology NORM C+C 09/07/22 12:45: S.aureus Protein A PCR NEGATIVE, MRSA (PCR) Negative Radiography Diagnostic Testing: Radiology Impression Lower Extremity MRI 09/06/22 19:35 IMPRESSION: There is non-specific soft tissue swelling of the dorsum of the foot. This suggests a cellulitis. There is a 10mm fluid collection lateral to the 4th metatarsophalangeal joint. 10 mm fluid collection in the plantar aspect of the fifth distal interphalangeal joint. This may represent an abscess. No evidence for osteomyelitis. Electronically Signed: Charlie Sabillon MD at 20:54 EDT , Physical Exam Narrative alert, oriented x3, no apparent distress, average body habitus and healthy appearing General Appearance: cooperative, well kempt and well developed Orientation / Consciousness: awake, oriented to person, oriented to place and oriented to time HEENT normocephalic, head/scalp atraumatic, hearing grossly normal bilaterally and moist oral mucous membranes Eyes PERRL, EOMs intact bilaterally and conjunctivae normal Neck supple, no JVD, thyroid normal and no carotid bruits General: trachea midline Resp normal respiratory effort, no retractions and no use of accessory muscles Resp Narrative: Patient has scattered expiratory wheezes bilaterally Auscultation: wheezes throughout; Negative for rales or rhonchi Cardio regular rate, regular rhythm, S1 normal heart sound, S2 normal heart sound, no murmurs, no rub and no gallops GI normal to inspection, nondistended, normoactive bowel sounds, soft to palpation, non-tender and non-distended Extremity Extremity Narrative: Right foot is wrapped with surgical dressing, this was not removed Skin Skin Narrative: Patient's right foot is wrapped with surgical dressing at this time, this was not removed for inspection Neuro oriented x3, CN's II-XII intact bilaterally, no focal motor deficits and no sensory deficits noted Sensorium / Orientation: awake, alert, oriented to person, oriented to place and oriented to time Speech: speech normal Psych affect normal Assessment & Plan Assessment/Plan (1) Infection of right foot: PLAN: Plan 1. Right foot abscess-bacterial in nature, exact organism unknown at this time, await culture results, patient will remain on vancomycin and Zosyn for the time being #2 chronic obstructive pulmonary disease-patient will continue with aerosol treatments #3 follicular lymphoma-patient is currently undergoing chemotherapy as an outpatient #4 chronic anxiety-patient is on Celexa and Ativan, these will be continued here Total clinical time spent by myself addressing the patient's medical issues, reviewing all of the data, and collaborating with patient's care team: 35 minutes Charges/Coding Visit Charges Inpatient E&M: 26120 Subs Hosp L2
[2022-09-08] VITALS (8 sets, daily range): BP systolic 115–152; BP diastolic 66–89; PULSE 72–97; RESP 16–21; TEMP 36.7–37.2; O2SAT 91–98
[2022-09-08 04:48] LABS: Hematocrit 36.3 % (40-54); Hemoglobin 11.7 g/dL (13.0-16.5); Mean Corp Hgb Conc 32.2 g/dL (32-36); Mean Corpuscular Hgb 33.6 pg (27.0-32.0); Mean Corpuscular Volume 104.3 fL (80-94); Mean Platelet Vol. 9.6 fl (6.2-12.0); POSITIVE COUNT YES; POSITIVE MORPHOLOGY YES; Platelet Count 210 K/mm3 (150-450); RBC Distribution Width CV 15.2 % (11.6-14.6); RBC Distribution Width SD 56.3 fl (35.1-43.9); Red Blood Count 3.48 M/mm3 (4.6-6.2); White Blood Count 8.2 K/mm3 (4.4-11.0)
[2022-09-08 04:56] LABS: Differential Indicated MANUAL DIFF
[2022-09-08 05:05] LABS: Prothrombin Time (Protime)PT. 13.1 SECONDS (11.7-14.9)
[2022-09-08 05:05] LABS: Vancomycin, Trough Level 9.7 ug/mL (5.0-15.0)
[2022-09-08 05:06] LABS: Partial Thromboplast Time 31.9 Seconds (24.1-36.2)
--- NOTE | 2022-09-08 05:16 | PCM.RX.CS ---
Consult Pharmacy has been consulted to manage selected antiobiotic: Vancomycin Type of Consult: Follow-up Prior Doses of Antibiotics Received/Current Regimen: Medications Vancomycin HCl 2,000 mg/ (Sodium Chloride) 540 mls @ 250 mls/hr IV Q12H SVEN Vancomycin HCl 1,500 mg/ (Sodium Chloride) 530 mls @ 250 mls/hr IV Q12H SVEN Stop: 09/08/22 06:30 Last Admin: 09/08/22 04:33 Dose: 250 mls/hr Labs: Sodium 139 mmol/L (136-145) 09/06/22 15:37 Potassium 3.8 mmol/L (3.5-5.1) 09/06/22 15:37 Chloride 106 mmol/L (98-107) 09/06/22 15:37 Carbon Dioxide 29.0 mmol/L (21.0-32.0) 09/06/22 15:37 Anion Gap 4 (5-15) L 09/06/22 15:37 BUN 10 mg/dL (7-18) 09/06/22 15:37 Creatinine 0.82 mg/dL (0.70-1.30) 09/06/22 15:37 Est GFR (MDRD) Af Amer 125 mL/min (>60) 09/06/22 15:37 Est GFR (MDRD) Non-Af 104 mL/min (>60) 09/06/22 15:37 BUN/Creatinine Ratio 12.3 RATIO (10-20) 09/06/22 15:37 Glucose 126 mg/dL (74-106) H 09/06/22 15:37 Vancomycin Trough 9.7 ug/mL (5.0-15.0) 09/08/22 04:20 Microbiology: Microbiology 09/06/22 16:16 Blood Culture (Wb) - Chest Blood Culture - Preliminary Weight used for dosin.1 kg Estimated Creatinine Clearance: 109 Goal Trough: 10-15 mcg/mL Pharmacy Plan for Drug Dosing: Vancomycin trough level was 9.7, which is below the target range of 10-15. Per dosing calculator, a new dose of 2000mg q12h will give an estimated trough of 11.5. Another level will be drawn prior to the fourth dose of the new regimen. Pharmacy Service will continue to monitor and adjust dosing as required. Follow-Up Labs: Trough Vancomycin Labs to be done on [date and time ordered]: 09/10/22 @4623
[2022-09-08 05:30] LABS: Metamyelocyte 2 % (0-1); Myelocyte 15 % (0-0); Neutrophil-Band 11 % (0-5); Neutrophil-Segmented 54 % (47-70); Promyelocyte 1 % (0-0); Total Cells Counted 100 (MANUAL DIFF)
[2022-09-08 05:31] LABS: Anisocytosis 1+; Lymphocyte 9 % (19-41); Macrocytosis RARE; Microcytosis RARE; Monocyte 8 % (0-10); Platelet Estimate ADEQUATE (ADEQ); Toxic Granulation 2+
[2022-09-08 05:32] LABS: Absolute Lymphocyte Count 0.74 X10^3/uL (0.83-4.51); Absolute Neutrophil Count 5.3 X10^3/uL (2.0-7.7); Lymphocyte # 0.74 X10^3/ul (0.83-4.51); Neutrophil # 5.32 X10^3/uL (2.7-7.7)
[2022-09-08] MEDS: Ibuprofen 400 MG Tablet 800 MG PO (07:27)
[2022-09-08] MEDS: oxyCODONE 5 MG Tablet 10 MG PO (07:27)
[2022-09-08] MEDS: Citalopram 10 MG Tablet PO (08:06)
[2022-09-08] MEDS: Ipratropium/Albuterol Sulfate 3 ML AMPUL.NEB INHALATION ×3 (08:07→18:52)
[2022-09-08 09:49] LABS: Pathologist Review Reviewed
[2022-09-08 09:53] LABS: Pathologist Review Reviewed
--- NOTE | 2022-09-08 12:02 | PN_ITS ---
Subjective Subjective This 57-year-old male seen bedside today status post bedside I&D yesterday. Patient denies constitutional symptoms. Notes some improvement in his pain today. No other complaints. Objective Data Objective Data Vital Signs: Vital Signs Temp Pulse Resp BP Pulse Ox O2 Del Method O2 Flow Rate 99.0 F 81 20 H 149/89 H 95 Room Air 2 09/08/22 07:55 09/08/22 07:55 09/08/22 07:55 09/08/22 07:55 09/08/22 08:22 09/08/22 08:22 09/07/22 21:41 Oxygen Flow Rate (L/min) 2 Oxygen Delivery Method Room Air Weight: 100.1 kg Body Mass Index (BMI) 29.9 Intake & Output: Intake and Output for Last 24 Hours 09/06/22 09/07/22 09/08/22 23:59 23:59 23:59 Intake Total 590 / 590 2521.75 / 2521.75 630.25 / 630.25 Output Total 550 / 550 200 / 200 Balance 590 / 590 1971.75 / 1971.75 430.25 / 430.25 Lab / Micro Data Result Diagrams: 09/08/22 04:27 09/06/22 15:37 Labs: Laboratory Results - last 24 hr 09/06/22 15:37: Diff Path Review Reviewed 09/07/22 06:20: Diff Path Review Reviewed 09/07/22 12:45: S.aureus Protein A PCR NEGATIVE, MRSA (PCR) Negative 09/08/22 04:20: Vancomycin Trough 9.7 09/08/22 04:27: WBC 8.2, RBC 3.48 L, Hgb 11.7 L, Hct 36.3 L, MCV 104.3 H, MCH 33.6 H, MCHC 32.2, RDW Std Deviation 56.3 H, RDW Coeff of Acacia 15.2 H, Plt Count 210, MPV 9.6, Neut % (Auto) Not Reportable, Absolute Neuts (auto) 5.3, Absolute Lymphs (auto) 0.74 L, Total Counted 100, Neutrophils % (Manual) 54, Band Neutrophils % 11 H, Lymphocytes % (Manual) 9 L, Monocytes % (Manual) 8, Metamyelocytes % 2 H, Myelocytes % 15 H, Promyelocytes % 1 H, Diff Path Review May foll, Toxic Granulation 2+, Platelet Estimate ADEQUATE, Anisocytosis 1+, Microcytosis RARE, Macrocytosis RARE 09/08/22 04:27: PT 13.1, INR 1.0, APTT 31.9 Micro: Microbiology 09/07/22 12:45 Wound - Right Foot Wound Culture - Preliminary Staphylococcus species 09/06/22 16:16 Blood Culture (Wb) - Chest Blood Culture - Preliminary Gram Positive Cocci Physical Exam Narrative Neurovascular status unchanged. Full-thickness fissure noted to the fourth interspace. Demonstrates mild sanguinous drainage. No residual evidence of purulent drainage. Some resolving erythema edema and pain to the periwound area. No evidence of DVT. Assessment & Plan Assessment/Plan (1) Cellulitis and abscess of foot: PLAN: Exam performed. Right fourth interspace abscess resolving. Continue antibiotics per infectious disease. Await cultures Redress today with Betadine soaked gauze 4 x 4's Kerlix and Blaine bandage. We will recheck the site tomorrow ensure continued resolution. If there is any recurrence or failed resolution of the cellulitis will consider operative debridement on Sunday. We will continue to follow daily. (2) Abscess of right foot including toes: (3) Non-pressure chronic ulcer of other part of right foot with fat layer expose d:
--- NOTE | 2022-09-08 13:50 | CASEMGMT ---
Discussed wound care with wound nurse. Currently no packing at this time.
--- NOTE | 2022-09-08 14:55 | CON.PCM.ID_ITS ---
Assessment & Plan Assessment/Plan (1) Cellulitis and abscess of foot: PLAN: Now s/p bedside I&D by Dr. Rivera on 09/07/22. MRI showed no osteo. On empiric vanc/zosyn. Wound cx with staph. PCR of wound cx neg for staph aureus. 1 of 2 bcx with GPC. Will follow, thank you. HPI Consult Data Date of Consult: 09/08/22 HPI Narrative Reason for Consultation: abscess HPI Narrative: VINCENT FULTON, is a 57 M with lymphoma, on chemo, presented with one week worse wicho R foot pain, swelling, redness. Pain was severe. No inciting event. Had ulcer for several months. No fever or chills. Started on keflex by pcp for several days without improvement. Came to ED, admitted on vanc/zosyn, MRI showed abscess, had bedside I&D done. Feeling ok today. Full ROS performed and neg except as noted above. PFSH Medical History Anxiety Asthma Back pain Cancer Chronic pain COPD (chronic obstructive pulmonary disease) Depression Easy bruising Excessive bleeding Gastric reflux Heart murmur Lymphoma Meningitis On home oxygen therapy Restless legs Shortness of breath on exertion Sleep apnea Smoker Home Medications albuterol sulfate 90 mcg/actuation aerosol inhaler 1 - 2 puff inhalation DAILY PRN SHORTNESS OF BREATH 08/17/18 [History Last Taken 09/05/22] budesonide-formoterol HFA 160 mcg-4.5 mcg/actuation aerosol inhaler (Symbicort) 1 puff inhalation BID copd 11/28/20 [History Last Taken 09/05/22] tiotropium bromide 2.5 mcg/actuation mist for inhalation (Spiriva Respimat) 1 puff inhalation BID copd 11/28/20 [History Last Taken 3 Weeks Ago ~08/16/22] apixaban 5 mg tablet (Eliquis) 5 mg PO BID BLOOD THINNER 09/06/22 [History Last Taken 09/06/22 12:00] cephalexin 500 mg capsule 500 mg PO Q6H ANTIBIOTIC 09/06/22 [History Last Taken 09/06/22] citalopram 10 mg tablet 10 mg PO DAILY depression 09/06/22 [History Last Taken 09/06/22] ibuprofen 800 mg tablet 800 mg PO BID pain 09/06/22 [History Last Taken 09/06/22 12:00] lorazepam 1 mg tablet 1 mg PO DAILY PRN panic attacks 09/06/22 [History Last Taken 09/02/22] Allergy/AdvReac Type Severity Reaction Status Date / Time No Known Allergies Allergy Verified 09/06/22 15:13 Family History Mother Breast cancer Father Heart disease Surgical History History of appendectomy Social History Smoking Status: Current every day smoker tobacco type: cigarettes Physical Exam Const alert, oriented x3 and no apparent distress General Appearance: cooperative HEENT normocephalic and head/scalp atraumatic Eyes PERRL and EOMs intact bilaterally Neck supple and No nodes Resp normal air movement and clear to auscultation bilaterally Cardio regular rate and regular rhythm GI soft to palpation, non-tender and non-distended Extremity General Extremity: Negative for edema Skin Skin Narrative: R foot wrapped Neuro CN's II-XII intact bilaterally Lab / Micro Data Attestation: I reviewed the patient's lab results. Result Diagrams: 09/08/22 04:27 09/06/22 15:37 Labs: Laboratory Results - last 24 hr 09/06/22 15:37: Diff Path Review Reviewed 09/07/22 06:20: Diff Path Review Reviewed 09/07/22 12:45: S.aureus Protein A PCR NEGATIVE, MRSA (PCR) Negative 09/08/22 04:20: Vancomycin Trough 9.7 09/08/22 04:27: WBC 8.2, RBC 3.48 L, Hgb 11.7 L, Hct 36.3 L, MCV 104.3 H, MCH 33.6 H, MCHC 32.2, RDW Std Deviation 56.3 H, RDW Coeff of Acacia 15.2 H, Plt Count 210, MPV 9.6, Neut % (Auto) Not Reportable, Absolute Neuts (auto) 5.3, Absolute Lymphs (auto) 0.74 L, Total Counted 100, Neutrophils % (Manual) 54, Band Neutrophils % 11 H, Lymphocytes % (Manual) 9 L, Monocytes % (Manual) 8, Metamyelocytes % 2 H, Myelocytes % 15 H, Promyelocytes % 1 H, Diff Path Review May foll, Toxic Granulation 2+, Platelet Estimate ADEQUATE, Anisocytosis 1+, Microcytosis RARE, Macrocytosis RARE 09/08/22 04:27: PT 13.1, INR 1.0, APTT 31.9 Micro: Microbiology 09/07/22 12:45 Wound - Right Foot Gram Stain - Final 09/07/22 12:45 Wound - Right Foot Wound Culture - Preliminary Staphylococcus species 09/06/22 16:16 Blood Culture (Wb) - Chest Blood Culture - Preliminary Gram Positive Cocci
--- NOTE | 2022-09-08 15:23 | PN.HOSP_ITS ---
Reason for Visit Reason for Visit: Diagnoses Cutaneous abscess of right foot (09/06/22) Cutaneous abscess of unspecified foot (09/06/22) Cellulitis of unspecified part of limb (09/06/22) Local infection of the skin and subcutaneous tissue, unspecified (09/06/22) Non-pressure chronic ulcer of other part of right foot with fat layer exposed (09/06/22) Subjective Subjective Patient was seen and examined today, he voices no complaints of any fevers or chills. Patient's wound culture grew out a staph species, this is probably not Staph aureus due to the fact the PCR was negative for Staph aureus. Patient was seen by infectious diseases today that, there was no change in his antibiotic coverage. Objective Data Objective Data Vital Signs: Vital Signs Temp Pulse Resp BP Pulse Ox O2 Del Method O2 Flow Rate 99.0 F 82 17 149/89 H 95 Room Air 2 09/08/22 07:55 09/08/22 12:53 09/08/22 12:53 09/08/22 07:55 09/08/22 08:22 09/08/22 08:22 09/07/22 21:41 Oxygen Flow Rate (L/min) 2 Oxygen Delivery Method Room Air Weight: 100.1 kg Body Mass Index (BMI) 29.9 Intake & Output: Intake and Output for Last 24 Hours 09/06/22 09/07/22 09/08/22 23:59 23:59 23:59 Intake Total 590 / 590 2521.75 / 2521.75 1280.25 / 1280.25 Output Total 550 / 550 550 / 550 Balance 590 / 590 1971.75 / 1971.75 730.25 / 730.25 Lab / Micro Data Result Diagrams: 09/08/22 04:27 09/06/22 15:37 Labs: Laboratory Results - last 24 hr 09/06/22 15:37: Diff Path Review Reviewed 09/07/22 06:20: Diff Path Review Reviewed 09/07/22 12:45: S.aureus Protein A PCR NEGATIVE, MRSA (PCR) Negative 09/08/22 04:20: Vancomycin Trough 9.7 09/08/22 04:27: WBC 8.2, RBC 3.48 L, Hgb 11.7 L, Hct 36.3 L, MCV 104.3 H, MCH 33.6 H, MCHC 32.2, RDW Std Deviation 56.3 H, RDW Coeff of Acacia 15.2 H, Plt Count 210, MPV 9.6, Neut % (Auto) Not Reportable, Absolute Neuts (auto) 5.3, Absolute Lymphs (auto) 0.74 L, Total Counted 100, Neutrophils % (Manual) 54, Band Neutrophils % 11 H, Lymphocytes % (Manual) 9 L, Monocytes % (Manual) 8, M etamyelocytes % 2 H, Myelocytes % 15 H, Promyelocytes % 1 H, Diff Path Review May foll, Toxic Granulation 2+, Platelet Estimate ADEQUATE, Anisocytosis 1+, Microcytosis RARE, Macrocytosis RARE 09/08/22 04:27: PT 13.1, INR 1.0, APTT 31.9 Micro: Microbiology 09/07/22 12:45 Wound - Right Foot Gram Stain - Final 09/07/22 12:45 Wound - Right Foot Wound Culture - Preliminary Staphylococcus species 09/06/22 16:16 Blood Culture (Wb) - Chest Blood Culture - Preliminary Gram Positive Cocci Physical Exam Narrative alert, oriented x3, no apparent distress, average body habitus and healthy appearing General Appearance: cooperative, well kempt and well developed Orientation / Consciousness: awake, oriented to person, oriented to place and oriented to time HEENT normocephalic, head/scalp atraumatic, hearing grossly normal bilaterally and moist oral mucous membranes Eyes PERRL, EOMs intact bilaterally and conjunctivae normal Neck supple, no JVD, thyroid normal and no carotid bruits General: trachea midline Resp normal respiratory effort, no retractions and no use of accessory muscles Resp Narrative: Patient has scattered expiratory wheezes bilaterally Auscultation: wheezes throughout; Negative for rales or rhonchi Cardio regular rate, regular rhythm, S1 normal heart sound, S2 normal heart sound, no murmurs, no rub and no gallops GI normal to inspection, nondistended, normoactive bowel sounds, soft to palpation, non-tender and non-distended Extremity Extremity Narrative: Right foot is wrapped with surgical dressing, this was not removed Skin Skin Narrative: Patient's right foot is wrapped with surgical dressing at this time, this was not removed for inspection Neuro oriented x3, CN's II-XII intact bilaterally, no focal motor deficits and no sensory deficits noted Sensorium / Orientation: awake, alert, oriented to person, oriented to place and oriented to time Speech: speech normal Psych affect normal Assessment & Plan Assessment/Plan (1) Cellulitis and abscess of foot: (2) Infection of right foot: PLAN: Plan 1. Right foot abscess-bacterial in nature, organism appears to be a staph species, continue present antibiotic coverage per ID guidance #2 chronic obstructive pulmonary disease-patient will continue with aerosol treatments #3 follicular lymphoma-patient is currently undergoing chemotherapy as an outpatient #4 chronic anxiety-patient is on Celexa and Ativan, these will be continued here Total clinical time spent by myself addressing the patient's medical issues, reviewing all of the data, and collaborating with patient's care team: 36 minutes Charges/Coding Visit Charges Inpatient E&M: 32666 Subs Hosp L2
[2022-09-08] MEDS: Juven (unflavored) Packet 1 PACKET PO (16:59)
[2022-09-08] MEDS: 0.9% Saline Lock 10 ML Syringe IV (17:00)
[2022-09-08] MEDS: Budesonide Respules 0.5 MG/2 ML AMPUL.NEB. INHALATION (18:52)
[2022-09-09] MEDS: Ibuprofen 400 MG Tablet 800 MG PO ×2 (02:05→22:17)
[2022-09-09 02:35] VITALS: BP 116/68; PULSE 88; RESP 16; TEMP 37.2; O2SAT 97
[2022-09-09] MEDS: 0.9% Saline Lock 10 ML Syringe IV (04:16)
[2022-09-09 07:20] VITALS: PULSE 89; RESP 18; O2SAT 99
[2022-09-09] MEDS: Budesonide Respules 0.5 MG/2 ML AMPUL.NEB. INHALATION ×2 (07:20→19:12)
[2022-09-09] MEDS: Ipratropium/Albuterol Sulfate 3 ML AMPUL.NEB INHALATION ×2 (07:20→19:12)
[2022-09-09] MEDS: Citalopram 10 MG Tablet PO (08:39)
[2022-09-09] MEDS: Juven (unflavored) Packet 1 PACKET PO ×2 (08:40→16:24)
[2022-09-09 08:45] VITALS: BP 139/83; PULSE 88; RESP 18; TEMP 37; O2SAT 93
[2022-09-09] MEDS: Morphine 4 MG/ML Syringe IM (10:26)
--- NOTE | 2022-09-09 10:55 | PN_ITS ---
Subjective Subjective Patient denies constitutional symptoms. Pain improving. No other complaints. Objective Data Objective Data Vital Signs: Vital Signs Temp Pulse Resp BP Pulse Ox O2 Del Method O2 Flow Rate 98.6 F 88 18 139/83 H 93 Room Air 2 09/09/22 08:45 09/09/22 08:45 09/09/22 08:45 09/09/22 08:45 09/09/22 08:45 09/09/22 08:45 09/07/22 21:41 Oxygen Flow Rate (L/min) 2 Oxygen Delivery Method Room Air Weight: 100.1 kg Body Mass Index (BMI) 29.9 Intake & Output: Intake and Output for Last 24 Hours 09/07/22 09/08/22 09/09/22 23:59 23:59 23:59 Intake Total 2521.75 / 2521.75 2871.50 / 2871.50 1040 / 1040 Output Total 550 / 550 1250 / 1250 700 / 700 Balance 1971.75 / 1971.75 1621.50 / 1621.50 340 / 340 Lab / Micro Data Result Diagrams: 09/08/22 04:27 09/06/22 15:37 Micro: Microbiology 09/07/22 12:45 Wound - Right Foot Gram Stain - Final 09/07/22 12:45 Wound - Right Foot Wound Culture - Final Staphylococcus epidermidis 09/06/22 15:37 Blood Culture (Wb) - Port Blood Culture - Preliminary No growth in 48 hours. 09/06/22 16:16 Blood Culture (Wb) - Chest Blood Culture - Preliminary Gram Positive Cocci Physical Exam Narrative Neurovascular status unchanged. Continued edema erythema to dorsal lateral right forefoot at the apex of the fourth interspace. Full-thickness fissure to that site scant purulence noted today. Upon repeat incision and drainage to site some additional purulent drainage was expelled from the fissure. No sign DVT. Const alert and oriented x3 Assessment & Plan Assessment/Plan (1) Cellulitis and abscess of foot: PLAN: Exam performed. Cultures growing Staph epidermidis. ID on board. Due to lack of resolution and some additional purulent drainage decision made for repeat bedside incision and drainage of right foot. Patient orally consented. Right foot prepped with Betadine paint. Reverse Zamora block technique performed fifth ray as well as digital block to the fourth digit using a total of 30 cc 2.0% lidocaine plain. Once anesthetized the zhen-incisional area was palpated and squeezed to eliminate any additional purulence. A small excision was extended dorsally to allow for additional drainage. The fissure and incisional sites were widened using sterile hemostats. Some additional purulent drainage was noted to be resolved from the site. Site was flushed with copious amounts of normal sterile saline and redressed with Betadine soaked gauze 4 x 4's Kerlix and Blaine. Hemos tasis obtained with compression. Patient tolerated procedure well. We will continue to follow closely ensure resolution of right foot infection. (2) Abscess of right foot including toes: (3) Non-pressure chronic ulcer of other part of right foot with fat layer exposed: (4) Ulcer of right foot with fat layer exposed:
[2022-09-09] MEDS: Lidocaine 2% (20 ml mdv) 20 ML Vial INFILT ×2 (11:52)
--- NOTE | 2022-09-09 13:29 | PCM.PN.HOSP ---
Reason for Visit Reason for Visit: Diagnoses Cutaneous abscess of right foot (09/06/22) Cutaneous abscess of unspecified foot (09/06/22) Cellulitis of unspecified part of limb (09/06/22) Local infection of the skin and subcutaneous tissue, unspecified (09/06/22) Non-pressure chronic ulcer of other part of right foot with fat layer exposed (09/06/22) Subjective Subjective Patient was seen and examined today, I talked with podiatry about his care, his wound culture grew out Staph epidermidis. Patient underwent bedside surgical drainage of the surgical area today by podiatry. Patient has had no complaints of any fevers or chills. Objective Data Objective Data Vital Signs: Vital Signs Temp Pulse Resp BP Pulse Ox O2 Del Method O2 Flow Rate 98.6 F 88 18 139/83 H 93 Room Air 2 09/09/22 08:45 09/09/22 08:45 09/09/22 08:45 09/09/22 08:45 09/09/22 08:45 09/09/22 08:45 09/07/22 21:41 Oxygen Flow Rate (L/min) 2 Oxygen Delivery Method Room Air Weight: 100.1 kg Body Mass Index (BMI) 29.9 Intake & Output: Intake and Output for Last 24 Hours 09/07/22 09/08/22 09/09/22 23:59 23:59 23:59 Intake Total 2521.75 / 2521.75 2871.50 / 2871.50 1040 / 1040 Output Total 550 / 550 1250 / 1250 1050 / 1050 Balance 1971.75 / 1971.75 1621.50 / 1621.50 -10 / -10 Lab / Micro Data Result Diagrams: 09/08/22 04:27 09/06/22 15:37 Micro: Microbiology 09/06/22 16:16 Blood Culture (Wb) - Chest Blood Culture - Preliminary Staphylococcus species 09/07/22 12:45 Wound - Right Foot Gram Stain - Final 09/07/22 12:45 Wound - Right Foot Wound Culture - Final Staphylococcus epidermidis 09/06/22 15:37 Blood Culture (Wb) - Port Blood Culture - Preliminary No growth in 48 hours. Physical Exam Narrative alert, oriented x3, no apparent distress, average body habitus and healthy appearing General Appearance: cooperative, well kempt and well developed Orientation / Consciousness: awake, oriented to person, oriented to place and oriented to time HEENT normocephalic, head/scalp atraumatic, hearing grossly normal bilaterally and moist oral mucous membranes Eyes PERRL, EOMs intact bilaterally and conjunctivae normal Neck supple, no JVD, thyroid normal and no carotid bruits General: trachea midline Resp normal respiratory effort, no retractions and no use of accessory muscles Resp Narrative: Patient has scattered expiratory wheezes bilaterally Auscultation: wheezes throughout; Negative for rales or rhonchi Cardio regular rate, regular rhythm, S1 normal heart sound, S2 normal heart sound, no murmurs, no rub and no gallops GI normal to inspection, nondistended, normoactive bowel sounds, soft to palpation, non-tender and non-distended Extremity Extremity Narrative: Right foot is wrapped with surgical dressing, this was not removed Skin Skin Narrative: Patient's right foot is wrapped with surgical dressing at this time, this was not removed for inspection Neuro oriented x3, CN's II-XII intact bilaterally, no focal motor deficits and no sensory deficits noted Sensorium / Orientation: awake, alert, oriented to person, oriented to place and oriented to time Speech: speech normal Psych affect normal Assessment & Plan Assessment/Plan (1) Cellulitis and abscess of foot: PLAN: Plan 1.? Right foot abscess-bacterial in nature, organism appears to be Staph epidermidis, continue present antibiotic coverage per ID guidance #2 chronic obstructive pulmonary disease-patient will continue with aerosol treatments #3 follicular lymphoma-patient is currently undergoing chemotherapy as an outpatient #4 chronic anxiety-patient is on Celexa and Ativan, these will be continued here Total clinical time spent by myself addressing the patient's medical issues, reviewing all of the data, and collaborating with patient's care team: 35 minutes Charges/Coding Visit Charges Inpatient E&M: 50127 Subs Hosp L2
[2022-09-09] MEDS: oxyCODONE 5 MG Tablet 10 MG PO ×2 (13:57→22:17)
[2022-09-09 14:20] VITALS: BP 149/95; PULSE 85; RESP 18; TEMP 37; O2SAT 98
[2022-09-09] MEDS: Morphine 4 MG/ML Syringe IV (16:13)
[2022-09-09 19:13] VITALS: PULSE 86; RESP 20
[2022-09-09 22:27] VITALS: BP 120/71; PULSE 82; RESP 16; TEMP 36.9; O2SAT 96
[2022-09-10] MEDS: oxyCODONE 5 MG Tablet 10 MG PO ×2 (04:24→08:34)
[2022-09-10 04:29] VITALS: BP 128/79; PULSE 70; RESP 16; TEMP 36.6; O2SAT 94
[2022-09-10 04:41] LABS: Vancomycin, Trough Level 14.5 ug/mL (5.0-15.0)
--- NOTE | 2022-09-10 05:07 | PCM.RX.CS ---
Consult Pharmacy has been consulted to manage selected antiobiotic: Vancomycin Type of Consult: Follow-up Suspected Infection: Skin/Soft tissue Prior Doses of Antibiotics Received/Current Regimen: Medications Vancomycin HCl 2,000 mg/ (Sodium Chloride) 540 mls @ 250 mls/hr IV Q12H SVEN Last Admin: 09/10/22 04:15 Dose: 250 mls/hr Labs: Sodium 139 mmol/L (136-145) 09/06/22 15:37 Potassium 3.8 mmol/L (3.5-5.1) 09/06/22 15:37 Chloride 106 mmol/L (98-107) 09/06/22 15:37 Carbon Dioxide 29.0 mmol/L (21.0-32.0) 09/06/22 15:37 Anion Gap 4 (5-15) L 09/06/22 15:37 BUN 10 mg/dL (7-18) 09/06/22 15:37 Creatinine 0.82 mg/dL (0.70-1.30) 09/06/22 15:37 Est GFR (MDRD) Af Amer 125 mL/min (>60) 09/06/22 15:37 Est GFR (MDRD) Non-Af 104 mL/min (>60) 09/06/22 15:37 BUN/Creatinine Ratio 12.3 RATIO (10-20) 09/06/22 15:37 Glucose 126 mg/dL (74-106) H 09/06/22 15:37 Vancomycin Trough 14.5 ug/mL (5.0-15.0) 09/10/22 03:55 Microbiology: Microbiology 09/06/22 16:16 Blood Culture (Wb) - Chest Blood Culture - Preliminary Staphylococcus species 09/07/22 12:45 Wound - Right Foot Gram Stain - Final 09/07/22 12:45 Wound - Right Foot Wound Culture - Final Staphylococcus epidermidis 09/06/22 15:37 Blood Culture (Wb) - Port Blood Culture - Preliminary No growth in 48 hours. Weight used for dosin.1 kg Estimated Creatinine Clearance: 109 Goal Trough: 10-15 mcg/mL Pharmacy Plan for Drug Dosing: Vancomycin trough level, drawn 11.5hrs post-dose, was 14.5 - within the target range of 10-15. Will continue dosing at 2000mg q12h, and will re-draw a trough level in two days. Pharmacy Service will continue to monitor and adjust dosing as required. Follow-Up Labs: Trough Vancomycin Labs to be done on [date and time ordered]: 09/12/22 @2782
[2022-09-10] MEDS: Juven (unflavored) Packet 1 PACKET PO (07:25)
[2022-09-10] MEDS: Morphine 4 MG/ML Syringe IV (07:25)
[2022-09-10] MEDS: Citalopram 10 MG Tablet PO (07:26)
[2022-09-10 07:32] VITALS: PULSE 78; RESP 18; O2SAT 94
[2022-09-10] MEDS: Ipratropium/Albuterol Sulfate 3 ML AMPUL.NEB INHALATION (07:32)
[2022-09-10] MEDS: Budesonide Respules 0.5 MG/2 ML AMPUL.NEB. INHALATION (07:32)
[2022-09-10 08:04] VITALS: BP 146/74; PULSE 73; RESP 18; TEMP 36.4; O2SAT 97
[2022-09-10] MEDS: Ibuprofen 400 MG Tablet 800 MG PO (08:34)
--- NOTE | 2022-09-10 09:42 | PCM.PROGNOTE ---
Subjective Subjective Some increased pain after incision drainage yesterday. Patient denies constitutional's. No other complaints. Objective Data Objective Data Vital Signs: Vital Signs Temp Pulse Resp BP Pulse Ox O2 Del Method O2 Flow Rate 97.6 F L 73 18 146/74 H 97 Room Air 2 09/10/22 08:04 09/10/22 08:04 09/10/22 08:04 09/10/22 08:04 09/10/22 08:04 09/10/22 08:04 09/07/22 21:41 Oxygen Flow Rate (L/min) 2 Oxygen Delivery Method Room Air Weight: 100.1 kg Body Mass Index (BMI) 29.9 Intake & Output: Intake and Output for Last 24 Hours 09/08/22 09/09/22 09/10/22 23:59 23:59 23:59 Intake Total 2871.50 / 2871.50 1630 / 1630 590 / 590 Output Total 1250 / 1250 2250 / 2250 900 / 900 Balance 1621.50 / 1621.50 -620 / -620 -310 / -310 Lab / Micro Data Result Diagrams: 09/08/22 04:27 09/06/22 15:37 Labs: Laboratory Results - last 24 hr 09/10/22 03:55: Vancomycin Trough 14.5 Micro: Microbiology 09/06/22 16:16 Blood Culture (Wb) - Chest Blood Culture - Preliminary Staphylococcus epidermidis 09/07/22 12:45 Wound - Right Foot Gram Stain - Final 09/07/22 12:45 Wound - Right Foot Wound Culture - Final Staphylococcus epidermidis 09/07/22 12:45 Wound - Right Foot Anaerobic Culture - Preliminary Checking for anaerobes, further studies to follow. 09/06/22 15:37 Blood Culture (Wb) - Port Blood Culture - Preliminary No growth in 48 hours. Physical Exam Narrative Neurovascular status unchanged. Fissure from right foot fourth interspace along with incision extending to dorsal forefoot demonstrates no evidence of purulent drainage today. There is improved erythema edema and warmth to right foot. No sign DVT. Const alert and oriented x3 Assessment & Plan Assessment/Plan (1) Cellulitis and abscess of foot: PLAN: Exam performed. Cultures growing Staph epidermidis. Plan for DC on Augmentin for 10 days. Patient maintain heel weightbearing status to right foot in surgical shoe. Patient follow-up in my clinic in 3 days. He will keep dressing clean dry and intact till that time. We will continue to follow closely. (2) Abscess of right foot including toes: (3) Non-pressure chronic ulcer of other part of right foot with fat layer exposed: (4) Ulcer of right foot with fat layer exposed:
--- NOTE | 2022-09-10 10:41 | DCINST_ITS ---
Discharge Instructions Diet Discharge Diet: No restrictions Activity Discharge Activity: Return to Normal Activity Return to work on:: 09/25/22 Weight Bearing Status: Weight bearing as tolerated Dressing / Incision Call your doctor if your incision/area has: Sudden Increased Bleeding, Increased Pain/ Swelling and Foul Smelling Discharge Call your doctor if you observe: Fever of 101 or Higher Change Dressing in: do not change dressing Follow Up Care Test Results: Test results from this visit will be discussed in further detail at your follow- up appointment, if applicable. Discharge Plan Admission Admit Date/Time: 09/06/22 16:39 Primary Reason for Your Visit: abcess right foot Attending Provider: Raheem Fabian Primary Care Provider: Dianelys Decker Consulting Providers: Tang Rivera ; Silver Florez Instructions Forms: Work / School Excuse Discharge Orders/Prescriptions Prescriptions: New oxycodone 5 mg Tablet 10 mg PO Q4H PRN PRN (Reason: Pain Score 6-10) 5 Days Qty: 40 0RF amoxicillin-pot clavulanate 875-125 mg tablet 1 tab PO BID Qty: 20 0RF Rx Instructions: take with food Continued albuterol sulfate 108 HFA aerosol inhaler 1 - 2 puff inhalation DAILY PRN (Reason: SHORTNESS OF BREATH ) budesonide-formoterol [Symbicort] 160-4.5 mcg/actuation HFA aerosol inhaler 1 puff INHALATION BID Spiriva Respimat 2.5 mcg/actuation mist 1 puff INHALATION BID ibuprofen 800 mg Tablet 800 mg PO BID citalopram 10 mg tablet 10 mg PO DAILY lorazepam 1 mg tablet 1 mg PO DAILY PRN (Reason: panic attacks) Discontinued cephalexin 500 mg capsule 500 mg PO Q6H Eliquis 5 mg tablet 5 mg PO BID Referrals / Follow Up: Tang Rivera DPM [Med Staff - Active Staff] - See Referral Note (Next week, call on Sunday to schedule appointment, tell them that you were hospitalized and saw Dr. Rivera in the hospital) Dianelys Decker DO [Primary Care Provider] - Within 1 Month Disposition Disposition (needs filled in before D/C Order can be placed): Home, Self Care
--- NOTE | 2022-09-10 10:51 | PCM.DC.SUM ---
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 Comment: Reason for Consult:: right foot Reason For Visit: CELLULITIS OF THE FOOT Diagnosis Discharge Diagnosis (1) Cellulitis and abscess of foot: Status: Acute Code(s): L03.119 - Cellulitis of unspecified part of limb; L02.619 - Cutaneous abscess of unspecified foot (2) Abscess of right foot including toes: Status: Acute Code(s): L02.611 - Cutaneous abscess of right foot (3) Non-pressure chronic ulcer of other part of right foot with fat layer exposed: Status: Chronic Code(s): L97.512 - Non-pressure chronic ulcer of other part of right foot with fat layer exposed (4) Ulcer of right foot with fat layer exposed: Status: Resolved Code(s): L97.512 - Non-pressure chronic ulcer of other part of right foot with fat layer exposed Plan 1.? Right foot abscess-bacterial in nature, organism unknown #2 chronic obstructive pulmonary disease-patient will continue with aerosol treatments #3 follicular lymphoma-patient is currently undergoing chemotherapy as an outpatient #4 chronic anxiety-patient is on Celexa and Ativan, these will be continued here Total clinical time spent by myself addressing the patient's medical issues, reviewing all of the data, and collaborating with patient's care team: 35 minutes Medications at Discharge Home Medications albuterol sulfate 90 mcg/actuation aerosol inhaler 1 - 2 puff inhalation DAILY PRN SHORTNESS OF BREATH 08/17/18 budesonide-formoterol HFA 160 mcg-4.5 mcg/actuation aerosol inhaler (Symbicort) 1 puff inhalation BID copd 11/28/20 tiotropium bromide 2.5 mcg/actuation mist for inhalation (Spiriva Respimat) 1 puff inhalation BID copd 11/28/20 citalopram 10 mg tablet 10 mg PO DAILY depression 09/06/22 ibuprofen 800 mg tablet 800 mg PO BID pain 09/06/22 lorazepam 1 mg tablet 1 mg PO DAILY PRN panic attacks 09/06/22 amoxicillin 875 mg-potassium clavulanate 125 mg tablet 1 tab PO BID #20 tabs 09/10/22 oxycodone 5 mg tablet 10 mg PO Q4H PRN PRN Pain Score 6-10 5 days #40 tabs 09/10/22 Hospital Course Operations None Procedures None Summary of Care Provided Minutes Spent on Discharge: 31 Hospital Course: This 57-year-old white male was seen in the emergency room at [facility] with complaints of right foot pain, swelling, and redness over 2 to 3 days. X-rays taken in the emergency room showed soft tissue swelling but no evidence of osteomyelitis, patient's white blood cell count was normal. Patient was admitted to [place] [id number] for possible cellulitis of the right foot with abscess, MRI of the foot was obtained which showed nonspecific soft tissue swelling of the dorsum of the foot, there is also noted to be a 10 mm fluid collection lateral to the fourth metatarsal phalangeal joint and a 10 mm fluid collection in the plantar aspect of the fifth distal interphalangeal joint. Patient underwent a bedside incision and drainage of the right foot, purulent discharge was obtained and PCR revealed that it was not Staph aureus. Cultures finally grew out Staph epidermidis, infectious diseases who participated in his care did not feel that this was the organism causing the problem and felt it was likely a skin contaminant. Patient's one blood culture grew out staph also but the other blood culture did not grow out anything, this positive blood culture was felt to also be contaminant. Patient improved during his hospitalization, on 09/10/2022, patient was seen and examined: On examination he appeared in good health and spirits. Vital signs as documented. Skin warm and dry and without overt rashes. Neck without JVD, neck was supple, trachea midline, thyroid was normal. Lungs clear bilaterally, normal air movement was noted. Heart exam notable for regular rhythm, normal sounds and absence of murmurs, rubs or gallops. Abdomen unremarkable and without evidence of organomegaly, masses, or abdominal aortic enlargement. Bowel sounds are present, abdomen is not distended. Extremities-patient's right foot was wrapped with surgical dressing and this was not removed for inspection of the area. Neuro: Cranial nerves II through XII are grossly intact, no focal motor deficits were noted, sensation to light touch and pinprick intact, motor exam 5/5 throughout. Psych: Patient is alert and oriented x3, he does not appear anxious or depressed, he does not appear agitated. Patient appears stable for discharge on 09/10/2022. Weight / BMI Weight Weight: 100.1 kg Body Mass Index (BMI) 29.9 ABG / Lab / Microbiology Data Result Diagrams: 09/08/22 04:27 09/06/22 15:37 Laboratory: Laboratory Results - last 24 hr 09/10/22 03:55: Vancomycin Trough 14.5 Microbiology: Microbiology 09/06/22 16:16 Blood Culture (Wb) - Chest Blood Culture - Preliminary Staphylococcus epidermidis 09/07/22 12:45 Wound - Right Foot Gram Stain - Final 09/07/22 12:45 Wound - Right Foot Wound Culture - Final Staphylococcus epidermidis 09/07/22 12:45 Wound - Right Foot Anaerobic Culture - Preliminary Checking for anaerobes, further studies to follow. 09/06/22 15:37 Blood Culture (Wb) - Port Blood Culture - Preliminary No growth in 48 hours. D/C Instructions Discharge Diet: No restrictions Return to work on: 09/25/22 Weight Bearing Status: Weight bearing as tolerated Call your doctor if your incision/area has: Sudden Increased Bleeding, Increased Pain/ Swelling and Foul Smelling Discharge Call your doctor if you observe: Fever of 101 or Higher Meaningful Use Info Meaningful Use Diagnoses (Choose all that apply): None applicable Discharge Plan Admission Admit Date/Time: 09/06/22 16:39 Primary Reason for Your Visit: abcess right foot Attending Provider: Raheem Fabian Primary Care Provider: Dianelys Decker Consulting Providers: Tang Rivera ; Silver Florez Instructions Forms: Work / School Excuse Discharge Orders/Prescriptions Prescriptions: New oxycodone 5 mg Tablet 10 mg PO Q4H PRN PRN (Reason: Pain Score 6-10) 5 Days Qty: 40 0RF amoxicillin-pot clavulanate 875-125 mg tablet 1 tab PO BID Qty: 20 0RF Rx Instructions: take with food Continued albuterol sulfate 108 HFA aerosol inhaler 1 - 2 puff inhalation DAILY PRN (Reason: SHORTNESS OF BREATH ) budesonide-formoterol [Symbicort] 160-4.5 mcg/actuation HFA aerosol inhaler 1 puff INHALATION BID Spiriva Respimat 2.5 mcg/actuation mist 1 puff INHALATION BID ibuprofen 800 mg Tablet 800 mg PO BID citalopram 10 mg tablet 10 mg PO DAILY lorazepam 1 mg tablet 1 mg PO DAILY PRN (Reason: panic attacks) Discontinued cephalexin 500 mg capsule 500 mg PO Q6H Eliquis 5 mg tablet 5 mg PO BID Referrals / Follow Up: Tang Rivera DPM [Med Staff - Active Staff] - See Referral Note (Next week, call on Sunday to schedule appointment, tell them that you were hospitalized and saw Dr. Rivera in the hospital) Dianelys Decker, DO [Primary Care Provider] - Within 1 Month Disposition Disposition (needs filled in before D/C Order can be placed): Home, Self Care Charges/Coding Visit Charges Inpatient E&M: 10823 Disch Hosp >30min
[2022-09-10] MEDS: 0.9% Saline Lock 10 ML Syringe IV (11:16)
[2022-09-11 10:06] LABS: Pathologist Review Reviewed
== END 2022-09-10 11:47 | disposition home or self-care (01) | DRG 603 ==
LOC: ED 16:27 → MS3 17:15
PROVIDERS: Anesthesiology; Hospitalist; Podiatrist; Admitting Provider Internal Medicine; Emergency Provider Emergency Medicine; PCP Family Medicine; Visit Provider Internal Medicine
DX: L03.115 Cellulitis of right lower limb (principal); C82.90 Follicular lymphoma, unspecified, unspecified site; L02.611 Cutaneous abscess of right foot; J44.9 Chronic obstructive pulmonary disease, unspecified; L97.512 Non-pressure chronic ulcer of other part of right foot with fat layer exposed; F41.9 Anxiety disorder, unspecified; F17.210 Nicotine dependence, cigarettes, uncomplicated; Z79.899 Other long term (current) drug therapy
CPT/HCPCS: 36415; 73630; 73718; 80048; 80202; 83605; 85025; 85610; 85730; 87040; 87070; 87075; 87077; 87186; 87205; 87640; 93005; 94640; 99283; 99406; J7040; J7050; A4216

== ENCOUNTER 2022-09-12 13:27 | Emergency (ER) | payer BC, SELFPAY ==
[2022-09-12 13:28] VITALS: BP 132/84; PULSE 86; RESP 18; TEMP 36.6; O2SAT 96; BMI 31.0
--- NOTE | 2022-09-12 15:12 | ED.VIS.LOWEX ---
HPI History of Present Illness Chief Complaint: Wound Check Detail of Chief Complaint: Presents with DVT to the right lower extremity Informant: patient Narrative Narrative: Patient presents the emergency department with a DVT to his right lower extremity. 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 Patient was complaining of swelling to his right leg and calf and therefore had an outpatient ultrasound that showed a DVT of the soleus vein. Patient currently supposed to be on Eliquis due to the fact that he had a port placed in his left chest 2 months ago for history of leukemia and he subsequently developed a DVT in his left upper extremity. When he had the infection and admission last week to the hospital 6 days ago they discontinued his Eliquis and he has not called back on it. Patient denies chest pain or shortness of breath. Denies hemoptysis. PFSH PFSH Medical History Anxiety Asthma Back pain Cancer Chronic pain COPD (chronic obstructive pulmonary disease) Depression Easy bruising Excessive bleeding Gastric reflux Heart murmur Lymphoma Meningitis On home oxygen therapy Restless legs Shortness of breath on exertion Sleep apnea Smoker Home Medications albuterol sulfate 90 mcg/actuation aerosol inhaler 1 - 2 puff inhalation DAILY PRN SHORTNESS OF BREATH 08/17/18 [History Last Taken 09/05/22] budesonide-formoterol HFA 160 mcg-4.5 mcg/actuation aerosol inhaler (Symbicort) 1 puff inhalation BID copd 11/28/20 [History Last Taken 09/05/22] tiotropium bromide 2.5 mcg/actuation mist for inhalation (Spiriva Respimat) 1 puff inhalation BID copd 11/28/20 [History Last Taken 3 Weeks Ago ~08/16/22] citalopram 10 mg tablet 10 mg PO DAILY depression 09/06/22 [History Last Taken 09/06/22] ibuprofen 800 mg tablet 800 mg PO BID pain 09/06/22 [History Last Taken 09/06/22 12:00] lorazepam 1 mg tablet 1 mg PO DAILY PRN panic attacks 09/06/22 [History Last Taken 09/02/22] oxycodone 5 mg tablet 10 mg PO Q4H PRN PRN Pain Score 6-10 5 days #40 tabs 09/10/22 [Rx Last Taken Unknown] ciprofloxacin HCl 750 mg tablet 750 mg PO BID 09/12/22 [History Last Taken Unknown] doxycycline monohydrate 100 mg tablet 100 mg PO BID 09/12/22 [History Last Taken Unknown] Allergy/AdvReac Type Severity Reaction Status Date / Time No Known Allergies Allergy Verified 09/12/22 13:28 Family History Mother Breast cancer Father Heart disease Surgical History History of appendectomy Social History Smoking Status: Current every day smoker tobacco type: cigarettes ROS ROS ED Review of Systems ROS Unobtainable: other Constitutional Constitutional ED: Reports lethargy; Denies chills, fever(s), sweats or weight loss Eyes Eyes: Denies blurry vision, change in vision or diplopia ENT ENT ED: Denies rhinorrhea or sore throat Cardiovascular Cardiovascular: Denies chest pain, orthopnea or racing heartbeat Respiratory/Chest Respiratory/Chest: Denies cough, dyspnea, dyspnea on exertion, orthopnea or sputum Gastrointestinal Gastrointestinal: Denies abdominal pain, diarrhea, nausea or vomiting Genitourinary Genitourinary ED: Denies dysuria, hematuria or urinary frequency Musculoskeletal Musculoskeletal: Reports other Details: Right calf swelling ; Denies arthralgias, back pain, myalgias or neck pain Integumentary Denies abscess, Abrasions or rash Neurologic Neurologic: Denies headache(s) or weakness Psychiatric Psychiatric: Denies anxiety, depression or suicidal thoughts Endocrine Endocrinology: Denies polydipsia, polyphagia or polyuria Hematologic/Lymphatic Hematologic/Lymphatic: Denies easy bleeding, easy bruising or lymphadenopathy Allergic/Immunologic Allergic/Immunologic ED: Denies mouth swelling, tongue swelling or urticaria EXAM Physical Exam Const Vital Signs: 09/12/22 13:28 09/12/22 13:37 Temperature 97.9 F Temperature Source Temporal Pulse Rate 86 Respiratory Rate 18 Respiratory Effort Normal Non-Labored Respiratory Pattern Normal Blood Pressure 132/84 H Blood Pressure Mean 100 Pulse Ox 96 Oxygen Delivery Method Room Air Positive well nourished and well developed General Appearance ED: well developed and NAD HEENT Reports TM's clear and moist mucous membranes normocephalic and atraumatic; Negative for trauma or tenderness Tympanic Membrane ED: Yes TM's clear Eyes PERRL and EOMs intact bilaterally General Eye ED: Negative for pale conjunctiva or scleral icterus Neck no lymphadenopathy, supple and no JVD General: Negative for tenderness Chest Wall inspection of chest normal and palpation of chest normal Chest: Negative for tenderness Resp normal respiratory effort and clear to auscultation bilaterally Effort and Inspection: Negative for respiratory distress or pain with movement Auscultation: Negative for rhonchi, wheezes or diminished lung sounds Cardio regular rate, regular rhythm, S1 normal heart sound, S2 normal heart sound and no murmurs Peripheral Pulses: pulses 2+ throughout GI normal to inspection, nondistended, normoactive bowel sounds, soft to palpation, non-tender, non-distended and no masses Back/Spine no CVA tenderness and no thoracic nor lumbar tenderness Extremity Extremity Narrative: Patient does have edema to the right calf. No ropes or cords palpated. Neurovascularly intact. General Extremety ED: Negative for edema General Extremity: Negative for edema Neuro oriented x3, CN's II-XII intact bilaterally, no sensory deficits noted and gait normal Sensorium / Orientation: awake, alert, oriented to person, oriented to place and oriented to time Motor Exam: strength 5/5 throughout and strength abnormal Psych mental status grossly normal Skin no rashes or lesions noted and no wounds MDM MDM MDM Narrative Medical decision making narrative: Case discussed with Dr. Ambrose Cueto was patient's oncologist. I was asked to start patient back on his Eliquis. I do not believe this is a failure of the Eliquis but developed clot due to the fact that he discontinued for 6 days. Patient case will also be discussed with his power plant operator apprentice as I recommended the patient have a repeat ultrasound in 7 to 10 days of his right lower extremity to evaluate for propagation. Patient advised to return if chest pain, shortness of breath, or condition worsen anyway. Discharge Plan Triage Chief Complaint: Wound Check Other Complaint: General Illness ED Provider: Divya Jones Dx/Rx/DC Orders Clinical Impression: Acute deep vein thrombosis (DVT) of right lower extremity Instructions: DVT Dc Prescriptions: No Action albuterol sulfate 108 HFA aerosol inhaler 1 - 2 puff inhalation DAILY PRN (Reason: SHORTNESS OF BREATH ) budesonide-formoterol [Symbicort] 160-4.5 mcg/actuation HFA aerosol inhaler 1 puff INHALATION BID Spiriva Respimat 2.5 mcg/actuation mist 1 puff INHALATION BID ibuprofen 800 mg Tablet 800 mg PO BID citalopram 10 mg tablet 10 mg PO DAILY lorazepam 1 mg tablet 1 mg PO DAILY PRN (Reason: panic attacks) oxycodone 5 mg Tablet 10 mg PO Q4H PRN PRN (Reason: Pain Score 6-10) 5 Days Qty: 40 0RF ciprofloxacin HCl 750 mg tablet 750 mg PO BID doxycycline monohydrate 100 mg tablet 100 mg PO BID Primary Care Provider: Dianelys Decker Referrals: Dianelys Decker, DO [Primary Care Provider] - Activity Restrictions/Additional Instructions: Follow-up with Dr. Rivera to have repeat ultrasound of the right lower extremity in 7 to 10 days. Disposition Disposition: Home, Self Care
[2022-09-12] MEDS: APIXABAN 5 MG TABLET 10 MG PO (15:18)
== END 2022-09-12 15:21 | disposition home or self-care (01) ==
PROVIDERS: Emergency Provider Emergency Medicine; PCP Family Medicine; Visit Provider Emergency Medicine
DX: I82.401 Acute embolism and thrombosis of unspecified deep veins of right lower extremity (principal); J44.9 Chronic obstructive pulmonary disease, unspecified; F17.210 Nicotine dependence, cigarettes, uncomplicated; G47.30 Sleep apnea, unspecified; F32.A Depression, unspecified; F41.9 Anxiety disorder, unspecified; Z99.81 Dependence on supplemental oxygen; Z79.899 Other long term (current) drug therapy
CPT/HCPCS: 99283

== ENCOUNTER → 2022-09-12 | Outpatient (CLI) | payer BC, SELFPAY ==
--- NOTE | 2022-09-12 13:02 | VDLE_ITS ---
Reason For Study: Swelling RIGHT LEFT GSV is normal. GSV is normal. CFV is compressible, spontaneous, phasic, CFV is compressible, spontaneous, phasic, competent and demonstrates normal competent, and demonstrates normal augmentation. augmentation. FV is compressible, spontaneous, phasic, FV is compressible, spontaneous, phasic, competent and demonstrates normal competent and demonstrates normal augmentation. augmentation. POP V is compressible, spontaneous, phasic, POP V is compressible, spontaneous, phasic, competent and demonstrates normal competent and demonstrates normal augmentation. augmentation. T/P Trunk is compressible. T/P Trunk is compressible. PTV is compressible. PTV is compressible. RT PerV is compressible. LT PerV is compressible. Acute deep vein thrombosis is noted in the SoleusV. It is dilated and NONCOMPRESSIBLE. Procedure This is a venous duplex using B-mode, color flow and spectral Doppler. Exam performed in department. A preliminary report was called and/or faxed to [facility] Dr. take patient to ED for treatment. VL/Venous Duplex US - Miguel Extrem Interpretation Summary Acute deep venous thrombosis right soleus vein. No evidence for acute deep venous thrombosis left lower extremity Patent and compressible bilateral great saphenous veins Ordering Physician: Tang Rivera Referring Physician: Dianelys Decker Performed By: Bertha Beasley RVT
== END | disposition home or self-care (01) ==
LOC: CVS 12:51
PROVIDERS: PCP Family Medicine; Referring Provider Podiatrist; Visit Provider Podiatrist
DX: R22.43 Localized swelling, mass and lump, lower limb, bilateral (principal)
CPT/HCPCS: 93970

== ENCOUNTER → 2022-09-25 | Outpatient (CLI) | payer BC, SELFPAY ==
--- NOTE | 2022-09-25 15:10 | VDLE_ITS ---
Reason For Study: Swelling RIGHT LEFT GSV is normal. CFV is compressible, spontaneous, phasic, CFV is compressible, spontaneous, phasic, competent, and demonstrates normal competent and demonstrates normal augmentation. augmentation. FV is compressible, spontaneous, phasic, competent and demonstrates normal augmentation. POP V is compressible, spontaneous and phasic. T/P Trunk is compressible. PTV is compressible. RT PerV is compressible. RT Soleus V is partially compressible and dilated with hypoechoic intraluminal echogenicity. Partial flow noted in color doppler. Procedure This is a venous duplex using B-mode, color flow and spectral Doppler. Exam performed in department. The exam was diagnostic. A preliminary report was called and/or faxed to Dr. Cueto's office. VL/Venous Duplex US, Unilateral Interpretation Summary Chronic deep venous thrombosis right soleus vein. Improvement since 09/12/22 Patent, compressible right great saphenous vein Normal flow patterns left common femoral vein Ordering Physician: Dianelys Decker Referring Physician: Ambrose Cueto Performed By: Jay Felder RVT
== END | disposition home or self-care (01) ==
LOC: CVS 15:08
PROVIDERS: PCP Family Medicine; Referring Provider Internal Medicine Hematology & Oncology; Visit Provider Internal Medicine Hematology & Oncology
DX: I82.461 Acute embolism and thrombosis of right calf muscular vein (principal); C82.21 Follicular lymphoma grade III, unspecified, lymph nodes of head, face, and neck
CPT/HCPCS: 93971

== ENCOUNTER → 2024-07-30 | Outpatient (CLI) | payer BC, SELFPAY ==
--- NOTE | 2024-07-30 12:48 | CT_ITS ---
PROCEDURE: LOW DOSE CT LUNG SCREENING REASON FOR EXAM: Current smoker. Patient has smoked 1 pack per day for 45 years. COPD and emphysema. TECHNIQUE: Low Dose CT Lung Screening without contrast COMPARISON: Comparison is made with prior study dated September 10, 2020. FINDINGS: PULMONARY NODULES: (Only nodules >6mm are reported) Nodules described below are on series unless otherwise specified. Pulmonary Nodules: No concerning pulmonary nodules. Hardware:None Lymph Nodes:No mediastinal hilar or axillary lymphadenopathy. Heart and Vasculature:Normal heart size. No pericardial effusion.Thoracic aorta and pulmonary arteries have normal contours; noncontrast technique limits evaluation. Coronary Artery Calcifications: Present Lungs and Airways: Mild degree of emphysematous changes. Pleura:No pleural effusion. No pneumothorax. Upper Abdomen:Visualized portions of the upper abdominal viscera are unremarkable. Bones:Bone windows are unremarkable. CT/Low Dose CT Lung Screening IMPRESSION: 1. BASED ON THE ACR LUNG RADS FOR THE MOST SUSPICIOUS NODULE (IF ANY) DESCRIBE D IN THIS REPORT, THE OVERALL LUNG RADS SCORE IS 1. 1 - NEGATIVE. RECOMMEND 12-MONTH SCREENING LDCT.. 2. SMOKING CESSATION COUNSELING IS RECOMMENDED IF THE PATIENT IS STILL SMOKING . 3. OTHER SIGNIFICANT FINDINGSNone. One or more dose reduction techniques were used (e.g., Automated exposure contr ol, adjustment of the mA and/or kV according to patient size, use of iterative reconstruction technique). The following information is provided for reference:Lung-RADS 2021 Assessment C ategories. Additional information involving Lung-RADS is available at www.acr.org. 0-INCOMPLETE 1-NEGATIVE:No nodules or definitely benign nodules. Complete, central, popcorn , or centric ring calcifications OR fat containing 2-BENIGN APPEARANCE (based on imaging features or indolent behavior). Juxtaple ural nodule: < 10mm AND solid; smooth margins; oval, entiform, or triangular shape Solid nodule: <6mm at baseline or new< 4mm Part solid Nodule: < 6mm total mean diameter at baseline Nonsolid nodule:(GGN) < 30mm OR >=30mm stable or slowly growing Airway nodule, subsegmental at baseline, new, or stable Category 3 nodule stabl e or decreased in size at 6-month follow-up CT or Category 3 or 4A nodules that resolve on follow-up OR category 4B findings prov en to be benign following diagnotic work up. 3 - Probably Benign (Based on imaging features or behavior) Solid Nodule: >= 6 to <8mm at baseline OR new 4 to <6mm Part-solid nodule: >= 6mm toal mean diam. with solid component <6mm at baseline OR new < 6mm total mean diam. Non-solid nodule: GGN >= 30mm at baseline or new Atypical pulmonary cyst: Growing cystic component (mean diam.) of thick-walled cyst Category 4A nodule stable or decreased in size at 3-month follow-up CT (excl.ai rway). 4A - Suspicious Solid nodule: >=8 to < 15mm at baseline OR growing < 8mm OR new 6 to < 8mm Part solid nodule: >= 6mm total mean diam. w/ solid component >=6mm to < 8mm at baseline OR new or growing < 4mm solid component Airway nodule, segmental or more proximal at baseline or new Atypical pulmonary cyst: Thick-walled OR multilocular at baseline OR becomes mu ltilocular 4B - Very Suspicious Airway nodule, segmental or more proximal, and stable or growing Solid nodule: >= 15mm at baseline OR new or growing >= 8mm Part solid nodule: Solid component >= 8mm OR new or growing >= 4mm solid compon ent Atypical pulmonary cyst: Thick-walled with growing wall thickness/nodularity OR Growing multilocular (mean diam.) OR Multilocular with increased loculation or new/increased opacity Slow-growing solid or part solid nodule w/ growth over multiple screening exams 4X - Very Suspicious Category 3 or 4 nodules with additional features that increase the suspicion fo r lung cancer. S - Clinically Significant or potentially significant findings (non-lung cancer ) Reading Location: [id number]
== END | disposition home or self-care (01) ==
LOC: CT 12:46
PROVIDERS: PCP Family Medicine; Referring Provider Internal Medicine Pulmonary Disease; Visit Provider Internal Medicine Pulmonary Disease
DX: Z87.891 Personal history of nicotine dependence (principal)
CPT/HCPCS: 71271

== ENCOUNTER → 2024-12-22 | Outpatient (CLI) | payer BC, SELFPAY ==
[2024-12-22 18:04] LABS: Hematocrit 42.9 % (40-54); Hemoglobin 14.1 g/dL (13.0-16.5); Mean Corp Hgb Conc 32.9 g/dL (32-36); Mean Corpuscular Volume 102.9 fL (80-94); Mean Platelet Vol. 9.7 fl (6.2-12.0); Platelet Count 248 K/mm3 (150-450); RBC Distribution Width CV 12.8 % (11.6-14.6); RBC Distribution Width SD 47.8 fl (35.1-43.9); Red Blood Count 4.17 M/mm3 (4.6-6.2); White Blood Count 5.6 K/mm3 (4.4-11.0)
[2024-12-22 18:51] LABS: AST(SGOT) 20 U/L (<=37); Alanine Aminotransfer ALT/SGPT 14 U/L (<=46); Albumin, Serum 3.9 g/dL (3.5-5.0); Alkaline Phosphatase 68 U/L (40-129); Anion Gap 11 (5-15); BUN 8 mg/dL (4-19); BUN/Creat Ratio 10.1 RATIO (10-20); Calcium,Total 8.4 mg/dL (7.6-11.0); Carbon Dioxide 27.5 mmol/L (21.0-32.0); Chloride 102 mmol/L (98-108); Globulin 2.2 g/dL (2.2-4.2); Glucose 103 mg/dL (70-99); Potassium 4.7 mmol/L (3.3-5.1)
[2024-12-22 18:52] LABS: PSA,Total - Annual Screen 0.25 ng/mL (0.02-4.00)
== END | disposition home or self-care (01) ==
LOC: MFPLAB 16:38
PROVIDERS: PCP Family Medicine; Referring Provider Family Medicine; Visit Provider Family Medicine
DX: I10 Essential (primary) hypertension (principal); Z12.5 Encounter for screening for malignant neoplasm of prostate; R53.83 Other fatigue
CPT/HCPCS: 36415; 80053; 82652; 84153; 84443; 85027; G0103

== ENCOUNTER → 2025-04-21 | Outpatient (CLI) | payer BC, SELFPAY ==
--- NOTE | 2025-04-21 14:47 | RAD_ITS ---
PROCEDURE: MANDIBLE MIN 4 VIEWS 04/21/2025 REASON FOR EXAM: GUM DISEASE TECHNIQUE: Procedure Code: FABIÁN Modality: DX Procedure: MANDIBLE MIN 4 VIEWS COMPARISON: None FINDINGS: The temporomandibular joints are grossly intact. The patient has numerous teeth missing in both the mandible and maxilla. These are not particularly well seen due to summation shadows from overlapping structures. The sinuses and mastoid air cells are grossly aerated. The adjacent soft tissues are unremarkable. Degenerative cervical spine changes are noted. No definite bony erosive change although subtle erosions would likely not be visualized with plain film. RAD/Mandible Min 4 Views IMPRESSION: Multiple teeth are missing. No obvious erosive change. If more subtle changes are of concern, I recommend either [facility] dental x-ray or maxillofacial CT. Reading Location: [facility]
== END | disposition home or self-care (01) ==
LOC: MTRAD 14:44
PROVIDERS: PCP Family Medicine; Referring Provider Family Medicine; Visit Provider Family Medicine
DX: K06.9 Disorder of gingiva and edentulous alveolar ridge, unspecified (principal)
CPT/HCPCS: 70110

== ENCOUNTER → 2025-05-22 | Outpatient (CLI) | payer BC, SELFPAY ==
--- NOTE | 2025-05-22 13:49 | CT_ITS ---
PROCEDURE: SINUS/FACIAL BONE WITH CONTRAS 05/22/2025 REASON FOR EXAM: GUM DISEASE TECHNIQUE: Procedure Code: CTSIW Modality: CT Procedure: SINUS/FACIAL BONE WITH CONTRAS Coronal and Sagittal reconstruction series were provided. CONTRAST: VOLUME: mL One or more dose reduction techniques were used (e.g., Automated exposure control, adjustment of the mA and/or kV according to patient size, use of iterative reconstruction technique). FINDINGS: Frontal: Clear bilaterally. The bilateral frontoethmoidal recesses are patent. Ethmoid: Clear bilaterally. Sphenoid: Minimal mucosal thickening on the right. Clear on the left. Mucosal occlusion of the ostia of the right sphenoethmoidal recess. The left sphenoethmoidal recess is patent. Maxillary: Mild mucosal thickening on the left, and minimal on the right. Small bilateral nasoantral windows are present. Ostiomeatal units: Patent bilaterally. Nasal Septum: Very mild s shaped bowing of the bony nasal septum. Mastoids/Middle Ears: Clear bilaterally. Poor dentition. CT/Sinus/Facial Bone WITH Contras IMPRESSION: Minimal to mild bilateral maxillary and right sphenoid sinusitis. Poor dentition. Reading Location: [id number]
== END | disposition home or self-care (01) ==
PROVIDERS: PCP Family Medicine; Referring Provider Family Medicine; Visit Provider Family Medicine
DX: K06.9 Disorder of gingiva and edentulous alveolar ridge, unspecified (principal)
CPT/HCPCS: 70487; Q9967